=== PATIENT | female | born 1955 | race Caucasian/White ===

== ENCOUNTER 2017-07-03 18:33 | Observation (INO) | payer MEDICARE, OTHER ==
[~2017-07-03] VITALS: Ht 157.5 cm; Wt 68.6 kg
--- NOTE | 2017-07-03 18:54 | PHYS DOC ---
Past History Past Medical History: Anemia, Anxiety, Dementia, GERD, Hypothyroid, Other Past Surgical History: Other Alcohol Use: None Drug Use: None Adult General Chief Complaint Chief Complaint: PSYCH EVALUATION HPI HPI Patient is a 61-year-old female was riding his for admission to [facility]. Patient has no acute complaints. Patient arrives on nasal cannula but she is chronically on that secondary to COPD. Patient is currently in the ED for a medical screening prior to going to the unit. Patient denies any pain, recent illness or being off her baseline Review of Systems Review of Systems Constitutional: Denies fever or chills [] Eyes: Denies change in visual acuity, redness, or eye pain [] HENT: Denies nasal congestion or sore throat [] Respiratory: Denies cough or shortness of breath [] Cardiovascular: No chest pain GI: Denies abdominal pain, nausea, vomiting, bloody stools or diarrhea [] : Denies dysuria or hematuria [] Musculoskeletal: Denies back pain or joint pain [] Integument: Denies rash or skin lesions [] Neurologic: Denies headache, focal weakness or sensory changes [] All other systems were reviewed and found to be within normal limits, except as documented in this note. Current Medications Current Medications Current Medications Medications (Trade) Dose Ordered Sig/Steph Start Time Stop Time Status Last Admin Dose Admin Sodium Chloride 1,000 ml @ 1,000 mls/hr 1X ONCE 07/03/17 18:45 07/03/17 19:44 UNV Allergies Allergies Allergies Coded Allergies Type Severity Reaction Last Updated Verified azithromycin Allergy Unknown 07/03/17 Yes butorphanol Allergy Unknown 07/03/17 Yes dexlansoprazole Allergy Unknown 07/03/17 Yes meperidine Allergy Unknown 07/03/17 Yes terfenadine Allergy Unknown 07/03/17 Yes Physical Exam Physical Exam Constitutional: Well developed, well nourished, no acute distress, non-toxic appearance. [] HENT: Normocephalic, atraumatic, bilateral external ears normal, oropharynx dry , no oral exudates, nose normal. [] Eyes: EOMI, conjunctiva normal, no discharge. [] Neck: Normal range of motion, no tenderness, supple, no stridor. No LAD, no meningeal signs Cardiovascular:Heart rate regular rhythm, no murmur, equal pulses, normal perfusion Lungs & Thorax: Bilateral breath sounds clear to auscultation, no tachypnea, no wheezing, no rhonchi, no rales Abdomen: Bowel sounds normal, soft, no tenderness, no masses, no pulsatile masses. [] Skin: Warm, dry, no erythema, no rash. [] Back: No tenderness, no CVA tenderness. [] Extremities: No tenderness, no DVT, nonpitting edema bilateral lower extremities , ROM intact, . [] Neurologic: Alert and oriented X 3, normal motor function, normal speech, no focal deficits noted. [] Psychologic: Affect normal, judgement normal, mood normal. No SI, no HI Current Patient Data Vital Signs Vital Signs Date Time Temp Pulse Resp B/P (MAP) Pulse Ox O2 Delivery O2 Flow Rate FiO2 07/03/17 18:39 98.0 73 18 90 Nasal Cannula 2.0 EKG EKG 1854 73, SR, no stemi[] Radiology/Procedures Radiology/Procedures CXR: possible LLL infiltrate[] Course & Med Decision Making Course & Med Decision Making Pertinent Labs and Imaging studies reviewed. (See chart for details) 2012 pt still pain free. spoke to Dr Tompkins: pt will be admitted to rule out NSTEMI. Likely the mild elevation of troponin is a type II but will trend them. Pt also will be treated for LLL appearing infiltrate. [] Dragon Disclaimer Dragon Disclaimer This electronic medical record was generated, in whole or in part, using a voice recognition dictation system. Departure Departure: Impression: Primary Impression: COPD (chronic obstructive pulmonary disease) Additional Impressions: Elevated troponin Pneumonia Disposition: ADMITTED INPATIENT Admitting Physician: Alex Tompkins Condition: STABLE Problem Qualifiers Star HOPKINS MD Jul 03, 2017 18:54
[2017-07-03] MEDS ORDERED: IV NORMAL SALINE 1,000ML 1,000 ML IV ONE (19:00)
[2017-07-03 19:37] LABS: BASO # 0.1 x10^3/uL (0.0-0.2); BASO % 1 % (0-3); EOS # 0.4 x10^3/uL (0.0-0.7); EOS % 6 % (0-3); HEMOGLOBIN 15.5 g/dL (12.0-15.5); LYMPH # 2.3 x10^3/uL (1.0-4.8); LYMPH % 31 % (24-48); MEAN CORPUSCULAR HEMOGLOBIN 29 pg (25-35); MEAN CORPUSCULAR HGB CONC 33 g/dL (31-37); MEAN CORPUSCULAR VOLUME 88 fL (79-100); MONO # 0.7 x10^3/uL (0.0-1.1); MONO % 10 % (0-9); NEUT % 53 % (31-73); PLATELET COUNT 305 x10^3/uL (140-400); RED BLOOD COUNT 5.37 x10^6/uL (3.50-5.40); RED CELL DISTRIBUTION WIDTH 16.5 % (11.5-14.5); WHITE BLOOD COUNT 7.5 x10^3/uL (4.0-11.0)
[2017-07-03 19:54] LABS: BILIRUBIN,URINE NEG (NEG); CLARITY,URINE HAZY; COLOR,URINE STRAW; GLUCOSE,URINE NEG (NEG)
[2017-07-03 19:55] LABS: AMORPHOUS SEDIMENT,UR PRESENT /HPF; BACTERIA,URINE 0 /HPF (0-FEW); HYALINE CASTS, URINE MOD /HPF; NITRITE,URINE NEG (NEG); RBC,URINE OCC /HPF (0-2); SQUAMOUS EPITHELIAL CELL,UR FEW /LPF; UROBILINOGEN,URINE 0.2 mg/dL (0.2 mg/dL); WBC,URINE OCC /HPF (0-4)
[2017-07-03 19:56] LABS: ALBUMIN 3.5 g/dL (3.4-5.0); ALBUMIN/GLOBULIN RATIO 0.6 (1.0-1.7); CALCIUM 9.3 mg/dL (8.5-10.1); CREATININE 1.1 mg/dL (0.6-1.0); GFR 50.7; TOTAL BILIRUBIN 0.9 mg/dL (0.2-1.0)
[2017-07-03 20:00] LABS: POTASSIUM 4.2 mmol/L (3.5-5.1)
[2017-07-03 20:11] VITALS: BP 120/80
[2017-07-03] MEDS ORDERED: levoFLOXacin 500 MG TABLET PO ONE (20:15)
[2017-07-03] MEDS ORDERED: ASPIRIN 81 MG TAB.CHEW PO ONE (20:15)
[2017-07-03] MEDS ORDERED: levoFLOXacin 500 MG TABLET ONE (20:16)
[2017-07-03] MEDS ORDERED: ONDANSETRON PF 4 MG/2 ML VIAL. IV PRN (20:30)
[2017-07-03] MEDS ORDERED: ACETAMINOPHEN 325 MG TABLET PO PRN (20:30)
[2017-07-03] MEDS ORDERED: ALBU2.5V14 NEB (22:24)
[2017-07-03] MEDS ORDERED: FERR-26 PO (22:24)
[2017-07-03] MEDS ORDERED: CLOP75TA PO (22:25)
[2017-07-03] MEDS ORDERED: MAGN400O7 PO (22:26)
[2017-07-03] MEDS ORDERED: CALC-30 PO (22:27)
[2017-07-03] MEDS ORDERED: ACET325T9 PO (22:29)
[2017-07-03] MEDS ORDERED: FLUT1DIS IH (22:31)
[2017-07-03] MEDS ORDERED: MEMA7CAP PO (22:33)
[2017-07-03] MEDS ORDERED: IPRA4AER INH (22:34)
[2017-07-03] MEDS ORDERED: SODI14.1 TP (22:40)
[2017-07-03] MEDS ORDERED: RANI150C PO (22:41)
[2017-07-03] MEDS ORDERED: CLON0.5T PO (22:41)
[2017-07-03] MEDS ORDERED: MELA3TAB2 PO (22:44)
[2017-07-03] MEDS ORDERED: LOPE2CAP88 PO (22:45)
[2017-07-03] MEDS ORDERED: POTA10CA PO (22:46)
[2017-07-03] MEDS ORDERED: MIRT15TA PO (22:46)
[2017-07-03] MEDS ORDERED: FURO40TA4 PO (22:46)
[2017-07-03] MEDS ORDERED: BUSP10TA PO (22:47)
[2017-07-03] MEDS ORDERED: CLON0.5T3 PO (22:48)
[2017-07-03] MEDS ORDERED: METO25TA4 PO (22:48)
[2017-07-03] MEDS ORDERED: LEVO137T3 PO (22:49)
[2017-07-03] MEDS ORDERED: VENL150C6 PO (22:50)
[2017-07-03 23:23] VITALS: BP 117/72
--- NOTE | 2017-07-03 23:37 | EKG ---
[address] [address] Test Date: 2017-07-03 Test Time: 18:52:30 Pat Name: RAFY CASTILLO Department: Room: 111 A Gender: F Machine Binding Folder: NIKOLAY : [id number] Requested By: Star HOPKINS Order Number: [id number] Reading MD: Chris Cooper MD Measurements Intervals [place] Rate: 73 P: 33 LA: 208 QRS: 111 QRSD: 92 T: 31 QT: 482 QTc: 536 Interpretive Statements SINUS RHYTHM LEFT ATRIAL ABNORMALITY ABNORMAL RIGHT AXIS DEVIATION QRS(T) CONTOUR ABNORMALITY CONSISTENT WITH ANTEROSEPTAL INFARCT PROBABLY OLD Electronically Signed On 07-09-2017 11:14:45 BROADCAST OPERATIONS MANAGER by Chris Cooper MD
--- NOTE | 2017-07-03 23:52 | NUR ---
The patient, RAFY CASTILLO, 61 y/o, F admitted by ADRIEN BOWERS MD, was given written information regarding hospital policies, unit procedures and contact persons. Patient admitted with a high troponin level and possible pneumonia. Originally patient was supposed to go up to the [facility] for SI, patient denies being suicidal. Patient states that she was "pissed" at her ex so she put a plastic bag on her head but states that it wasn't tight and she has no plans on harming her self or anyone else. Patient does have dementia with forgetfulness. Patient states she wants to be a full code. Patient is alert to name and place but thinks it is 1989 and Harry Thakur is still the president. Patient skin is intact however her coccyx area is very red. Photo taken, and applied barrier cream. Patient states that she is wheel chair bound. Bed alarm set for safety. Belongings documented and left at bedside. Call light within reach. Will continue to monitor. .
--- NOTE | 2017-07-04 01:54 | NUR ---
Called Dr. Tompkins regarding patient troponin going up, new orders noted. Patient resting at this time.
[2017-07-04 05:24] VITALS: BP 125/85
[2017-07-04] MEDS ORDERED: levoFLOXacin 500 MG TABLET PO SCH (06:00)
--- NOTE | 2017-07-04 06:16 | NUR ---
CONSULT CALLED TO DR. PERRIN AT 0615.
[2017-07-04 07:35] LABS: BASO # 0.1 x10^3/uL (0.0-0.2); BASO % 1 % (0-3); EOS # 0.5 x10^3/uL (0.0-0.7); EOS % 7 % (0-3); HEMATOCRIT 45.6 % (36.0-47.0); HEMOGLOBIN 14.9 g/dL (12.0-15.5); LYMPH # 1.7 x10^3/uL (1.0-4.8); LYMPH % 27 % (24-48); MEAN CORPUSCULAR HEMOGLOBIN 29 pg (25-35); MEAN CORPUSCULAR HGB CONC 33 g/dL (31-37); MEAN CORPUSCULAR VOLUME 88 fL (79-100); MONO # 0.7 x10^3/uL (0.0-1.1); MONO % 11 % (0-9); NEUT # 3.5 x10^3uL (1.8-7.7); NEUT % 55 % (31-73); PLATELET COUNT 274 x10^3/uL (140-400); RED BLOOD COUNT 5.18 x10^6/uL (3.50-5.40); RED CELL DISTRIBUTION WIDTH 16.9 % (11.5-14.5); WHITE BLOOD COUNT 6.4 x10^3/uL (4.0-11.0)
[2017-07-04 07:46] LABS: ALBUMIN 2.9 g/dL (3.4-5.0); ALBUMIN/GLOBULIN RATIO 0.6 (1.0-1.7); CALCIUM 8.8 mg/dL (8.5-10.1); CREATININE 1.2 mg/dL (0.6-1.0); GFR 45.8; POTASSIUM 4.1 mmol/L (3.5-5.1); TOTAL BILIRUBIN 0.9 mg/dL (0.2-1.0); TOTAL PROTEIN 7.6 g/dL (6.4-8.2)
--- NOTE | 2017-07-04 08:27 | RAD ---
History: COPD AP view the chest was obtained at 1847 hours. Comparison: none The cardiomediastinal silhouette is normal. The pulmonary vasculature is normal. There is patchy opacity in the lung bases. Impression: Basilar infiltrates suggesting atypical pneumonia. Clinical correlation suggested. This interpretation agrees with the ER physician's preliminary interpretation.
[2017-07-04 10:41] VITALS: BP 96/59
--- NOTE | 2017-07-04 10:54 | NUR ---
Pt is alert and oriented to person and place. Pt states she is wheelchair bound and does not remember what caused her to be unable to walk. Pt denies any want to hurt herself or anyone else. Pt does have O2 tubing in room, no call light, is using orozco. LE edema noted. Will continue to monitor.
[2017-07-04 14:55] VITALS: BP 117/73
--- NOTE | 2017-07-04 14:57 | PDOC2 ---
CONSULT Date of Admission DATE: 07/04/17 TIME: 14:57 Reason for Consult: elevated troponin level Referring Physician: Dr. Tompkins Chief Complaint Attempted suicide Source: Chart review, Patient Problem List Problems Medical Problems: (1) COPD (chronic obstructive pulmonary disease) Status: Acute (2) Elevated troponin Status: Acute (3) Pneumonia Status: Acute History of Present Illness 61-year-old female was found to have slightly elevated troponin level when she was being evaluated in ED for attempted suicide prior to admission for [facility]. Patient denied any chest pain as such pressure also denied any orthopnea/PND, palpitations or syncope. Past Medical History Hypothyroidism Dementia Anxiety Gastroesophageal reflux disease Anemia Past Surgical History: No pertinent history Family History No history of premature coronary artery disease Social History Patient quit smoking and denied any alcohol or drug abuse Current Medications Current Medications Sodium Chloride 1,000 ml @ 1,000 mls/hr 1X ONCE IV Last administered on at 19:00; Start 07/03/17 at 19:00; Stop 07/03/17 at 19:59; Status DC Aspirin (Children'S Aspirin) 324 mg 1X ONCE PO Last administered on 07/03/17at 20:19; Start 07/03/17 at 20:15; Stop 07/03/17 at 20:16; Status DC Levofloxacin (Levaquin) 500 mg 1X ONCE PO Last administered on 07/03/17at 20:19 ; Start 07/03/17 at 20:15; Stop 07/03/17 at 20:16; Status DC Levofloxacin (Levaquin) 500 mg STK-MED ONCE .ROUTE ; Start 07/03/17 at 20:16; Stop 07/03/17 at 20:17; Status DC Ondansetron HCl (Zofran) 4 mg PRN Q4HRS PRN IV NAUSEA/VOMITING; Start 07/03/17 at 20:30; Stop 07/04/17 at 20:29 Acetaminophen (Tylenol) 650 mg PRN Q4HRS PRN PO FEVER; Start 07/03/17 at 20:30; Stop 07/04/17 at 20:29 Levofloxacin (Levaquin) 500 mg DAILY06 PO Last administered on 07/04/17at 05:14; Start 07/04/17 at 06:00 Lactobacillus Rhamnosus (Culturelle) 1 cap BID PO ; Start 07/04/17 at 21:00 Active Scripts Active Reported Venlafaxine Hcl Er (Venlafaxine Hcl) 150 Mg Cap.er.24h 1 Cap PO DAILY Levothyroxine Sodium 137 Mcg Tablet 1 Tab PO [id number] Metoprolol Tartrate 25 Mg Tablet 1 Tab PO BID Clonazepam 0.5 Mg Tablet 1 Tab PO TID Buspirone Hcl 10 Mg Tablet 1 Tab PO TID Furosemide 40 Mg Tablet 1 Tab PO DAILY Potassium Chloride 10 Meq Capsule.er 1 Cap PO DAILY Remeron (Mirtazapine) 15 Mg Tablet 1 Tab PO QHS Imodium A-D (Loperamide HCl) 2 Mg Capsule 2 Mg PO QID PRN Melatonin 3 Mg Tablet 6 Mg PO HS Ranitidine Hcl 150 Mg Capsule 1 Cap PO BID Klonopin (Clonazepam) 0.5 Mg Tablet 1 Tab PO BID PRN [place] Saline Nasal Gel (Sodium Chloride/Aloe Vera) 14.1 Gm Gel..gram. 1 Brenda TP QID PRN Combivent Respimat Inhal (Ipratropium/Albuterol Sulfate) 4 Gm Aer.w.adap 1 Puff INH TID Namenda Xr (Memantine Hcl) 7 Mg Cap.spr.24 7 Mg PO DAILY Advair 100-50 Diskus (Fluticasone/Salmeterol) 1 Each Disk.w.dev 1 Puff IH BID Tylenol (Acetaminophen) 325 Mg Tablet 650 Mg PO TID Calcium 500 + Vit D 400 Tablet (Calcium Carbonate/Vitamin D3) 1 Each Tablet 1 Each PO DAILY Milk Of Magnesia (Magnesium Hydroxide) 400 Mg/5 Ml Oral.susp 400 Mg PO DAILY PRN Clopidogrel (Clopidogrel Bisulfate) 75 Mg Tablet 1 Tab PO DAILYBFRSUP Albuterol Sulfate Conc Neb Soln (Albuterol Sulfate) 2.5 Mg/0.5 Ml Vial.neb 1 Vial NEB Q4HRS PRN Ferrous Sulfate 325 Mg Tablet 1 Tab PO DAILY Allergies: Coded Allergies: azithromycin (Verified Allergy, Unknown, 07/03/17) butorphanol (Verified Allergy, Unknown, 07/03/17) dexlansoprazole (Verified Allergy, Unknown, 07/03/17) meperidine (Verified Allergy, Unknown, 07/03/17) terfenadine (Verified Allergy, Unknown, 07/03/17) PSYCHOLOGICAL ROS: No: Hallucinations Eyes: No: Loss of vision HEENT: No: Epistaxis ENDOCRINE: No: Palpitations Respiratory: No: Hemoptysis, Orthopnea Cardiovascular: No: Chest Pain, Edema Genitourinary: No: Dysuria, Genital Ulcers Neurological: No: Seizures Skin: No: Rash General: Alert, No acute distress HEENT: Atraumatic, PERRLA Lungs: Other (bilateral scattered crepitations) Heart: Regular rate Abdomen: Soft Extremities: No edema VITALS Vital Signs Date Time Temp Pulse Resp B/P (MAP) Pulse Ox O2 Delivery O2 Flow Rate FiO2 07/04/17 10:41 97.6 83 24 96/59 (71) 89 07/04/17 08:00 Nasal Cannula 4.0 Labs Laboratory Tests Test 07/03/17 19:03 07/03/17 21:25 07/04/17 01:10 07/04/17 07:10 White Blood Count 7.5 x10^3/uL (4.0-11.0) 6.4 x10^3/uL (4.0-11.0) Red Blood Count 5.37 x10^6/uL (3.50-5.40) 5.18 x10^6/uL (3.50-5.40) Hemoglobin 15.5 g/dL (12.0-15.5) 14.9 g/dL (12.0-15.5) Hematocrit 47.0 % (36.0-47.0) 45.6 % (36.0-47.0) Mean Corpuscular Volume 88 fL (79-100) 88 fL (79-100) Mean Corpuscular Hemoglobin 29 pg (25-35) 29 pg (25-35) Mean Corpuscular Hemoglobin Concent 33 g/dL (31-37) 33 g/dL (31-37) Red Cell Distribution Width 16.5 % (11.5-14.5) 16.9 % (11.5-14.5) Platelet Count 305 x10^3/uL (140-400) 274 x10^3/uL (140-400) Neutrophils (%) (Auto) 53 % (31-73) 55 % (31-73) Lymphocytes (%) (Auto) 31 % (24-48) 27 % (24-48) Monocytes (%) (Auto) 10 % (0-9) 11 % (0-9) Eosinophils (%) (Auto) 6 % (0-3) 7 % (0-3) Basophils (%) (Auto) 1 % (0-3) 1 % (0-3) Neutrophils # (Auto) 4.0 x10^3uL (1.8-7.7) 3.5 x10^3uL (1.8-7.7) Lymphocytes # (Auto) 2.3 x10^3/uL (1.0-4.8) 1.7 x10^3/uL (1.0-4.8) Monocytes # (Auto) 0.7 x10^3/uL (0.0-1.1) 0.7 x10^3/uL (0.0-1.1) Eosinophils # (Auto) 0.4 x10^3/uL (0.0-0.7) 0.5 x10^3/uL (0.0-0.7) Basophils # (Auto) 0.1 x10^3/uL (0.0-0.2) 0.1 x10^3/uL (0.0-0.2) Urine Collection Type U cath Urine Color Straw Urine Clarity Hazy Urine pH 5.0 Urine Specific [place] 1.010 Urine Protein Neg (NEG-TRACE) Urine Glucose (UA) Neg mg/dL (NEG) Urine Ketones (Stick) Neg mg/dL (NEG) Urine Blood Neg (NEG) Urine Nitrite Neg (NEG) Urine Bilirubin Neg (NEG) Urine Urobilinogen Dipstick 0.2 mg/dL (0.2 mg/dL) Urine Leukocyte Esterase Neg (NEG) Urine RBC Occ /HPF (0-2) Urine WBC Occ /HPF (0-4) Urine Squamous Epithelial Cells Few /LPF Urine Amorphous Sediment Present /HPF Urine Bacteria 0 /HPF (0-FEW) Urine Hyaline Casts Mod /HPF Urine Mucus Mod /LPF Sodium Level 142 mmol/L (136-145) 143 mmol/L (136-145) Potassium Level 4.2 mmol/L (3.5-5.1) 4.1 mmol/L (3.5-5.1) Chloride Level 100 mmol/L (98-107) 103 mmol/L (98-107) Carbon Dioxide Level 36 mmol/L (21-32) 35 mmol/L (21-32) Anion Gap 6 (6-14) 5 (6-14) Blood Urea Nitrogen 18 mg/dL (7-20) 16 mg/dL (7-20) Creatinine 1.1 mg/dL (0.6-1.0) 1.2 mg/dL (0.6-1.0) Estimated GFR (Cockcroft-Gault) 50.7 45.8 BUN/Creatinine Ratio 16 (6-20) 13 (6-20) Glucose Level 104 mg/dL (70-99) 75 mg/dL (70-99) Calcium Level 9.3 mg/dL (8.5-10.1) 8.8 mg/dL (8.5-10.1) Total Bilirubin 0.9 mg/dL (0.2-1.0) 0.9 mg/dL (0.2-1.0) Aspartate Amino Transf (AST/SGOT) 46 U/L (15-37) 34 U/L (15-37) Alanine Aminotransferase (ALT/SGPT) 23 U/L (14-59) 18 U/L (14-59) Alkaline Phosphatase 148 U/L (46-116) 118 U/L (46-116) Troponin I Quantitative 0.056 ng/mL (0-0.055) 0.070 ng/mL (0-0.055) 0.065 ng/mL (0-0.055) OT-Ygm-T-Type Natriuretic Peptide 6075 pg/mL (0-124) Total Protein 9.0 g/dL (6.4-8.2) 7.6 g/dL (6.4-8.2) Albumin 3.5 g/dL (3.4-5.0) 2.9 g/dL (3.4-5.0) Albumin/Globulin Ratio 0.6 (1.0-1.7) 0.6 (1.0-1.7) Glucose (Fingerstick) 88 mg/dL (70-99) Assessment/Plan 1. Slightly elevated troponin level: Most probably demand ischemia. Doubt ACS. Check 2-D echo to assess LV function and rule out wall motion abnormalities. Further ischemic evaluation in the form of stress test could be considered as an outpatient. 2. Atypical pneumonia: Continue antibiotics per IM 3. COPD: Clinically stable 4. Hypothyroidism: Continue levothyroxine 5. Hypertension: Well-controlled 6. Attempted suicide: Treated per psychiatric team Thank you for your consultation Problems: NELSON BARKER MD Jul 04, 2017 14:57
[2017-07-04] MEDS ORDERED: clonazePAM 0.5 MG TABLET PO PRN (18:45)
[2017-07-04] MEDS ORDERED: MAGNESIUM HYDROXIDE 2,400 MG/30 ML ORAL.SUSP. PO PRN (18:45)
[2017-07-04] MEDS ORDERED: NON FORMULARY ITEM (Albuterol Sulfate (Albuterol Sulfate Conc Neb Soln) 1 VIAL) NEB PRN (18:45)
[2017-07-04] MEDS ORDERED: LOPERAMIDE 2 MG CAPSULE PO PRN (18:45)
[2017-07-04] MEDS ORDERED: SODIUM CHL/ALOE VERA NASAL GEL 14.1GM TUBE. TP PRN (18:45)
--- NOTE | 2017-07-04 19:21 | PDOC ---
Exam Note: Saeid Note: Please also refer to the separate dictated note~for this date of service dictated separately.~Patient seen individually. Discussed the patient with Nursing staff reviewed the chart.~Reviewed interim history and current functioning. Reviewed vital signs,~Labs/ Radiology~and current medications noted below. Continue current treatment with the changes noted in the dictated addendum note Assessment: Vital Signs: Vital Signs Date Time Temp Pulse Resp B/P (MAP) Pulse Ox O2 Delivery O2 Flow Rate FiO2 07/04/17 14:55 98.2 99 24 117/73 (88) 90 07/04/17 08:00 Nasal Cannula 4.0 I&O Intake and Output 07/04/17 07:00 Intake Total 400 ml Balance 400 ml Intake Oral 400 ml Labs: Laboratory Tests Test 07/03/17 21:25 07/04/17 01:10 07/04/17 04:20 07/04/17 07:10 Glucose (Fingerstick) 88 mg/dL (70-99) Troponin I Quantitative 0.070 ng/mL (0-0.055) H 0.065 ng/mL (0-0.055) H Nasal Screen MRSA (PCR) Positive (Negative) H White Blood Count 6.4 x10^3/uL (4.0-11.0) Red Blood Count 5.18 x10^6/uL (3.50-5.40) Hemoglobin 14.9 g/dL (12.0-15.5) Hematocrit 45.6 % (36.0-47.0) Mean Corpuscular Volume 88 fL (79-100) Mean Corpuscular Hemoglobin 29 pg (25-35) Mean Corpuscular Hemoglobin Concent 33 g/dL (31-37) Red Cell Distribution Width 16.9 % (11.5-14.5) H Platelet Count 274 x10^3/uL (140-400) Neutrophils (%) (Auto) 55 % (31-73) Lymphocytes (%) (Auto) 27 % (24-48) Monocytes (%) (Auto) 11 % (0-9) H Eosinophils (%) (Auto) 7 % (0-3) H Basophils (%) (Auto) 1 % (0-3) Neutrophils # (Auto) 3.5 x10^3uL (1.8-7.7) Lymphocytes # (Auto) 1.7 x10^3/uL (1.0-4.8) Monocytes # (Auto) 0.7 x10^3/uL (0.0-1.1) Eosinophils # (Auto) 0.5 x10^3/uL (0.0-0.7) Basophils # (Auto) 0.1 x10^3/uL (0.0-0.2) Sodium Level 143 mmol/L (136-145) Potassium Level 4.1 mmol/L (3.5-5.1) Chloride Level 103 mmol/L (98-107) Carbon Dioxide Level 35 mmol/L (21-32) H Anion Gap 5 (6-14) L Blood Urea Nitrogen 16 mg/dL (7-20) Creatinine 1.2 mg/dL (0.6-1.0) H Estimated GFR (Cockcroft-Gault) 45.8 BUN/Creatinine Ratio 13 (6-20) Glucose Level 75 mg/dL (70-99) Calcium Level 8.8 mg/dL (8.5-10.1) Total Bilirubin 0.9 mg/dL (0.2-1.0) Aspartate Amino Transferase (AST) 34 U/L (15-37) Alanine Aminotransferase (ALT) 18 U/L (14-59) Alkaline Phosphatase 118 U/L (46-116) H Total Protein 7.6 g/dL (6.4-8.2) Albumin 2.9 g/dL (3.4-5.0) L Albumin/Globulin Ratio 0.6 (1.0-1.7) L Current Medications: Meds: Current Medications Sodium Chloride 1,000 ml @ 1,000 mls/hr 1X ONCE IV Last administered on at 19:00; Start 07/03/17 at 19:00; Stop 07/03/17 at 19:59; Status DC Aspirin (Children'S Aspirin) 324 mg 1X ONCE PO Last administered on 07/03/17at 20:19; Start 07/03/17 at 20:15; Stop 07/03/17 at 20:16; Status DC Levofloxacin (Levaquin) 500 mg 1X ONCE PO Last administered on 07/03/17at 20:19 ; Start 07/03/17 at 20:15; Stop 07/03/17 at 20:16; Status DC Levofloxacin (Levaquin) 500 mg STK-MED ONCE .ROUTE ; Start 07/03/17 at 20:16; Stop 07/03/17 at 20:17; Status DC Ondansetron HCl (Zofran) 4 mg PRN Q4HRS PRN IV NAUSEA/VOMITING; Start 07/03/17 at 20:30; Stop 07/04/17 at 20:29 Acetaminophen (Tylenol) 650 mg PRN Q4HRS PRN PO FEVER; Start 07/03/17 at 20:30; Stop 07/04/17 at 20:29 Levofloxacin (Levaquin) 500 mg DAILY06 PO Last administered on 07/04/17at 05:14; Start 07/04/17 at 06:00 Lactobacillus Rhamnosus (Culturelle) 1 cap BID PO ; Start 07/04/17 at 21:00 Acetaminophen (Tylenol) 650 mg TID PO ; Start 07/04/17 at 21:00 Buspirone HCl (Buspar) 10 mg TID PO ; Start 07/04/17 at 21:00 Clonazepam (KlonoPIN) 0.5 mg TID PO ; Start 07/04/17 at 21:00 Clonazepam (KlonoPIN) 0.5 mg PRN BID PRN PO ANXIETY / AGITATION; Start 07/04/17 at 18:45 Clopidogrel Bisulfate (Plavix) 75 mg DAILYBFRSUP PO ; Start 07/05/17 at 17:00 Ferrous Sulfate (Feosol) 325 mg DAILY PO ; Start 07/05/17 at 09:00 Furosemide (Lasix) 40 mg DAILY PO ; Start 07/05/17 at 09:00 Levothyroxine Sodium (Synthroid) 137 mcg DAILY07 PO ; Start 07/05/17 at 09:00 Loperamide HCl (Imodium) 2 mg PRN QID PRN PO DIARRHEA; Start 07/04/17 at 18:45 Magnesium Hydroxide (Milk Of Magnesia) 400 mg PRN DAILY PRN PO CONSTIPATION; Start 07/04/17 at 18:45 Metoprolol Tartrate (Lopressor) 25 mg BID PO ; Start 07/04/17 at 21:00 Mirtazapine (Remeron) 15 mg QHS PO ; Start 07/04/17 at 21:00 Sodium Chloride ([place] Saline Nasal) 1 brenda PRN QID PRN TP NASAL CONGESTION; Start 07/04/17 at 18:45 Non-Formulary Medication 1 vial Q4HRS PRN NEB SHORTNESS OF BREATH; Start at 18:45; Status UNV Non-Formulary Medication 1 each DAILY PO ; Start 07/05/17 at 09:00; Status UNV Non-Formulary Medication 1 puff BID IH ; Start 07/04/17 at 21:00; Status UNV Non-Formulary Medication 1 puff TID INH ; Start 07/04/17 at 21:00; Status UNV Non-Formulary Medication 6 mg HS PO ; Start 07/04/17 at 21:00; Status UNV Non-Formulary Medication 7 mg DAILY PO ; Start 07/05/17 at 09:00; Status UNV Non-Formulary Medication 1 cap DAILY PO ; Start 07/05/17 at 09:00; Status UNV Non-Formulary Medication 1 cap BID PO ; Start 07/04/17 at 21:00; Status UNV Non-Formulary Medication 1 cap DAILY PO ; Start 07/05/17 at 09:00; Status UNV Active Scripts Active Reported Venlafaxine Hcl Er (Venlafaxine Hcl) 150 Mg Cap.er.24h 1 Cap PO DAILY Levothyroxine Sodium 137 Mcg Tablet 1 Tab PO [id number] Metoprolol Tartrate 25 Mg Tablet 1 Tab PO BID Clonazepam 0.5 Mg Tablet 1 Tab PO TID Buspirone Hcl 10 Mg Tablet 1 Tab PO TID Furosemide 40 Mg Tablet 1 Tab PO DAILY Potassium Chloride 10 Meq Capsule.er 1 Cap PO DAILY Remeron (Mirtazapine) 15 Mg Tablet 1 Tab PO QHS Imodium A-D (Loperamide HCl) 2 Mg Capsule 2 Mg PO QID PRN Melatonin 3 Mg Tablet 6 Mg PO HS Ranitidine Hcl 150 Mg Capsule 1 Cap PO BID Klonopin (Clonazepam) 0.5 Mg Tablet 1 Tab PO BID PRN [place] Saline Nasal Gel (Sodium Chloride/Aloe Vera) 14.1 Gm Gel..gram. 1 Brenda TP QID PRN Combivent Respimat Inhal (Ipratropium/Albuterol Sulfate) 4 Gm Aer.w.adap 1 Puff INH TID Namenda Xr (Memantine Hcl) 7 Mg Cap.spr.24 7 Mg PO DAILY Advair 100-50 Diskus (Fluticasone/Salmeterol) 1 Each Disk.w.dev 1 Puff IH BID Tylenol (Acetaminophen) 325 Mg Tablet 650 Mg PO TID Calcium 500 + Vit D 400 Tablet (Calcium Carbonate/Vitamin D3) 1 Each Tablet 1 Each PO DAILY Milk Of Magnesia (Magnesium Hydroxide) 400 Mg/5 Ml Oral.susp 400 Mg PO DAILY PRN Clopidogrel (Clopidogrel Bisulfate) 75 Mg Tablet 1 Tab PO DAILYBFRSUP Albuterol Sulfate Conc Neb Soln (Albuterol Sulfate) 2.5 Mg/0.5 Ml Vial.neb 1 Vial NEB Q4HRS PRN Ferrous Sulfate 325 Mg Tablet 1 Tab PO DAILY I have reviewed the current psychotropics carefully including drug interactions. Risk benefit ratio favors no change other than as noted in my dictated progress note. Diagnosis: Problems: (1) Anxiety disorder (2) Major depressive disorder, recurrent episode CARY ALEX MD Jul 04, 2017 19:21
[2017-07-04 19:37] VITALS: BP 120/74
[2017-07-04] MEDS ORDERED: ACET500T68 PO (19:42)
[2017-07-04] MEDS ORDERED: LACT1CAP19 PO (19:45)
[2017-07-04] MEDS ORDERED: LEVO500T8 PO (19:48)
[2017-07-04 20:01] VITALS: BP 120/74
[2017-07-04] MEDS ORDERED: ALBUTEROL SULFATE 2.5 MG/3 ML NEBU. NEB PRN (20:45)
[2017-07-04] MEDS ORDERED: MELATONIN 3 MG TABLET PO SCH (21:00)
[2017-07-04] MEDS ORDERED: busPIRone 10 MG TABLET. PO SCH (21:00)
[2017-07-04] MEDS ORDERED: NON FORMULARY ITEM (Fluticasone/Salmeterol (Advair 100-50 Diskus) 1 PUFF) IH SCH (21:00)
[2017-07-04] MEDS ORDERED: LACTOBACILLUS RHAMNOSUS GG 1 CAPSULE. PO SCH (21:00)
[2017-07-04] MEDS ORDERED: clonazePAM 0.5 MG TABLET PO SCH (21:00)
[2017-07-04] MEDS ORDERED: FAMOTIDINE 20 MG TABLET PO SCH (21:00)
[2017-07-04] MEDS ORDERED: VENLAFAXINE 50 MG TABLET. PO SCH (21:00)
[2017-07-04] MEDS ORDERED: METOPROLOL TART IMMED RELEASE 25 MG TABLET PO SCH (21:00)
[2017-07-04] MEDS ORDERED: IPRATRPIUM/ALBUTEROL 0.5/2.5MG 3 ML NEBU. NEB SCH (21:00)
[2017-07-04] MEDS ORDERED: MIRTAZAPINE 15 MG TABLET PO SCH (21:00)
[2017-07-04] MEDS ORDERED: ACETAMINOPHEN 325 MG TABLET PO SCH (21:00)
--- NOTE | 2017-07-04 21:57 | NUR ---
Gave verbal report to nurse [place] on [facility], patient brought up to [facility] via wheelchair, belongings sent with patient. Daughter notified of transfer. Dr. Jeffery Accepting.
--- NOTE | 2017-07-05 07:48 | SSS ---
ADMIT DATE: HISTORY OF PRESENT ILLNESS: The patient is a 61-year-old female patient, who was evaluated in the Emergency Room to be admitted for [facility]. She apparently attempted suicide and when evaluating her to the Emergency Room, her lab work showed that she has slightly elevated troponin and was admitted to [address] [place] [address] to do 2 more sets of cardiac enzyme and to consult the cardiology team. The patient herself denied any chest pain, shortness of breath, orthopnea or paroxysmal nocturnal dyspnea. PAST MEDICAL HISTORY: Significant for hypothyroidism, gastroesophageal reflux disease, anemia, dementia and anxiety. PAST SURGICAL HISTORY: Unremarkable. FAMILY HISTORY: Unremarkable. SOCIAL HISTORY: She is a resident at the sn[facility] facility. ALLERGIES: SHE IS ALLERGIC TO AZITHROMYCIN, BUTORPHANOL , PANTOPRAZOLE, MEPERIDINE AND TERFENADINE. MEDICATIONS: She is currently on the following medications: She is on acetaminophen 650 mg t.i.d., albuterol sulfate 2.5 mg 0.5 mL by nebulizer every 4 hours, buspirone 10 mg 3 times a day, calcium carbonate with vitamin D one tablet once a day, clonazepam 0.5 mg p.o. b.i.d., clonazepam 0.5 mg t.i.d. scheduled, Plavix 75 mg once a day, ferrous sulfate 325 mg daily, Advair Diskus 100/50 one puff twice a day, furosemide 40 mg once a day; ipratropium bromide, albuterol inhaler for Combivent Respimat 1 puff 3 times a day; levothyroxine sodium 137 mcg daily, loperamide 2 mg every 4 hours, magnesium hydroxide for milk of magnesia 30 mL p.o. daily p.r.n. for constipation, melatonin 6 mg at bedtime, Namenda XR 7 mg daily, metoprolol 25 mg twice a day, mirtazapine 15 mg at bedtime, potassium chloride 1 capsule p.o. daily, ranitidine 150 mg p.o. b.i.d., saline nasal gel 4 times a day and venlafaxine 150 mg daily. REVIEW OF SYSTEMS: Unremarkable. PHYSICAL EXAMINATION: GENERAL: When I examined her, she looked well and was clearly in no apparent respiratory distress, pale, but no jaundice, cyanosis, or thyromegaly. No jugular venous distention. No limb edema. VITAL SIGNS: Her heart rate was 93, blood pressure was 96/59, temperature was 97.6, respiratory rate was 24, and oxygen saturation was 90%. HEAD: Showed normocephalic, atraumatic. NECK: Supple. HEART: Showed normal first and second heart sounds with no gallop, rub or murmur. CHEST: Clear to auscultation. No crepitation or rhonchi. ABDOMEN: Scaphoid, soft, nontender. NEUROLOGIC: She is demented, but without any obvious lateralizing sign. LABORATORY DATA: Her lab work showed that her white cell count was 6400, hemoglobin 14, hematocrit 45, MCV 88 and platelet count 274,000. Serum sodium was 143, potassium 4.1, chloride 103, bicarbonate 35, anion gap of 5, BUN 15, creatinine 1.2, estimated GFR was 46 mL per minute. Her glucose was 75, calcium was 8.8. Total bilirubin, AST, ALT, alkaline phosphatase were normal. Total protein 7.6, albumin was 2.9. She had 3 sets of cardiac enzymes that ruled out myocardial infarction. Her urinalysis was unremarkable; however, chest x-ray showed that she has basilar infiltrate suggesting atypical pneumonia. Clinical correlation is suggested. As she was allergic to Zithromax, she was started on levofloxacin. She was in fact evaluated by the health care consultant, who recommended that the patient can be safely discharged upstairs and to arrange for an echocardiogram and stress test as an outpatient. FINAL DISCHARGE DIAGNOSES: Slightly elevated troponin, atypical pneumonia, chronic obstructive pulmonary disease, hypothyroidism, hypertension, and suicidal attempt. ADRIEN BOWERS MD DR: ORVILLE/trung JOB#: [id number] / [id number]
[2017-07-05] MEDS ORDERED: BUDESONIDE 0.5 MG/2 ML NEBU NEB SCH (08:00)
[2017-07-05] MEDS ORDERED: CALCIUM CARB/VIT D3 500/200 TABLET PO SCH (08:00)
[2017-07-05] MEDS ORDERED: POTASSIUM CHLORIDE 10 MEQ TABLET.ER. PO SCH (08:00)
[2017-07-05] MEDS ORDERED: LEVOTHYROXINE 137 MCG TABLET PO SCH (09:00)
[2017-07-05] MEDS ORDERED: MEMANTINE 5 MG TABLET. PO SCH (09:00)
[2017-07-05] MEDS ORDERED: FUROSEMIDE 40 MG TABLET PO SCH (09:00)
[2017-07-05] MEDS ORDERED: FERROUS SULFATE 325 MG TABLET. PO SCH (09:00)
[2017-07-05] MEDS ORDERED: CLOPIDOGREL BISULFATE 75 MG TABLET PO SCH (17:00)
--- NOTE | 2017-07-05 19:08 | CONS ---
DATE OF CONSULTATION: 07/04/2017 IDENTIFYING DATA: The patient is a 61-year-old female seen in bed 111, [address] [place] [address] for a psychiatric consult requested by Dr. Tompkins to evaluate the patient for transfer to [facility]. The patient seen individually, discussed with nursing staff, reviewed the chart. The patient was initially referred to the [facility] from [place], [place] by Dr. Parker her psychiatrist on account of worsening symptoms of depression, dementia after the patient attempted to electrocute herself a week ago at the senior care, was sent to [facility] in [place], medically stabilized, returned to the senior care, and then on 07/03/2017, she put a bag over her head again in a suicide gesture and was referred to the [facility] Emergency Room. In the ER, she was found to have elevated cardiac enzymes and pneumonia, admitted to [address] [place] [address] and I have been asked to consult and perhaps reconsider for transfer to [facility]. CHIEF COMPLAINT: "I came here yesterday. I am losing much of my memory. I do not know the name of the president. The year is 2019." HISTORY OF PRESENT ILLNESS: The patient has been residing at [facility] in [place] for some time. Over the past few weeks, she has been increasingly agitated with sleep and appetite changes, worsening suicidal ideation and the suicide attempts noted above. She also appeared somewhat paranoid, much more forgetful. No clear history of bipolar disorder. PAST PSYCHIATRIC HISTORY: As above. PAST MEDICAL HISTORY: Positive for COPD, elevated troponin, pneumonia, hypothyroidism, hypertension, GERD. CURRENT PSYCHOTROPICS: Effexor ER 150 mg a day, Klonopin 0.5 mg 3 times a day, BuSpar 10 mg 3 times a day, Remeron 15 mg at bedtime, melatonin 3 mg 2 tablets at bedtime, Klonopin 0.5 mg b.i.d. p.r.n. anxiety, Namenda XR 7 mg daily. ALLERGIES: AZITHROMYCIN, BUTORPHANOL, DEXLANSOPRAZOLE, MEPERIDINE, and PERPHENAZINE. FAMILY HISTORY: Noncontributory. SOCIAL HISTORY: No alcohol, drug abuse, physical, sexual or elder abuse history is noted. She is not known to be a perpetrator. When I questioned the patient on what work she used to do. 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 She has 2 adult children of her own. MENTAL STATUS EXAMINATION: The patient was seen individually evening of 07/04/2017. She felt the year was 2019, unaware of the name of the president. Attention span short. She was accurate and telling me that she was admitted here yesterday, but thought [facility], was in [place] rather than where it, which is [place], [place]. Speech is coherent, abstraction fair, computation impaired, language function intact. Mood and affect is depressed. She denies active suicidal ideation, somewhat paranoid. Short memory is impaired, remote is better. CODE STATUS: Full code. PHYSICAL EXAMINATION: VITAL SIGNS: Temperature 98.2, pulse 99, BP 117/73. REVIEW OF SYSTEMS: No CV, , pulmonary, eye, ENT system symptoms on review. IMPRESSION: Major neurocognitive disorder, Alzheimer, vascular with depression, delusion, major depressive disorder with psychotic features; anxiety disorder, unspecified; impulse control disorder, unspecified. Rest as above. PLAN: I have carefully reviewed the patient's current psychotropics. We will continue her current medications for now, transferred to [facility] when she is medically stable. The patient is agreeable to this. Dr. Tompkins, thank you for the opportunity to participate in your patient's care. MAN Noel ALEX MD DR: ELIZABETH/trung JOB#: [id number] / [id number]
[2017-07-05] MEDS ORDERED: METH40VI IJ (21:50)
[2017-07-05] MEDS ORDERED: MONT10TA9 PO (21:50)
[2017-07-05] MEDS ORDERED: MAG355OR17 PO (21:50)
[2017-07-05] MEDS ORDERED: CLON0.5T3 PO (21:50)
[2017-07-05] MEDS ORDERED: MEMA10TA PO (21:50)
[2017-07-05] MEDS ORDERED: METH57CR7 TP (21:50)
[2017-07-05] MEDS ORDERED: PIPE3.3734 IV (21:50)
[2017-07-05] MEDS ORDERED: BUDE0.5A3 NEB (21:50)
[2017-07-05] MEDS ORDERED: BUPR-192 PO (21:50)
[2017-07-05] MEDS ORDERED: LEVO500P IV (21:50)
[2017-07-05] MEDS ORDERED: IPRA3AMP NEB (21:50)
[2017-07-05] MEDS ORDERED: CLON0.25 PO (21:50)
--- NOTE | 2017-07-08 08:47 | CARD ---
MR#: [id number] Account#: Date of Study: 07/07/2017 Ordering Physician: Tenisha: An LEAL APPROVED REPORT EXAM: Two-dimensional and M-mode echocardiogram with Doppler and color Doppler. Other Information Quality : Fair INDICATION Pneumonia 2D DIMENSIONS RVDd4.4 (2.9-3.5cm)Left Atrium(2D)3.8 (1.6-4.0cm) IVSd1.0 (0.7-1.1cm)Aortic Root(2D)2.6 (2.0-3.7cm) LVDd3.3 (3.9-5.9cm)LVOT Diameter1.9 (1.8-2.4cm) PWd1.2 (0.7-1.1cm)LVDs1.8 (2.5-4.0cm) FS (%) 43.8 %SV33.4 ml LVEF(%)76.3 (>50%) Aortic Valve AoV Peak Fabien.92.2cm/sAoV VTI15.7cm AO Peak GR.3.4mmHgLVOT Peak Fabien.55.0cm/s AO Mean GR.2mmHgAVA (VMAX)1.69cm2 Mitral Valve MV E Dvzhqvhb77.6cm/sMV DECEL QELH007nk MV A Sfcewftt15.3cm/sE/A Ratio0.8 Tricuspid Valve TR P. Wkwjvncv510od/sRAP FKHDMDGN58dsHu TR Peak Gr.95orVhHQZO93lwZs LEFT VENTRICLE The left ventricle is normal size. There is borderline concentric left ventricular hypertrophy. The l eft ventricular systolic function is normal and the ejection fraction is within normal range. The Eje ction Fraction is 65-70%. There is normal LV segmental wall motion. Tissue Doppler imaging reveals mo derate left ventricular diastolic dysfunction. RIGHT VENTRICLE The right ventricle is moderately dilated. The right ventricular systolic function is mild to moderat dilip reduced. ATRIA The left atrium size is normal. The right atrium is severely dilated. AORTIC VALVE The aortic valve is probably trileaflet. The aortic valve is mildly to moderately calcified. Doppler and Color Flow revealed no significant aortic regurgitation. There is no significant aortic valvular stenosis. MITRAL VALVE The mitral valve leaflets are mildly calcified. There is no evidence of mitral valve prolapse. There is no mitral valve stenosis. Doppler and Color-flow revealed trace mitral regurgitation. TRICUSPID VALVE The tricuspid valve leaflets are mildly calcified. Doppler and Color Flow revealed moderate to severe tricuspid regurgitation. There is severe pulmonary hypertension. PAP is 72mmHg. There is no tricusp id valve stenosis. PULMONIC VALVE The pulmonary valve is normal in structure and function. Doppler and Color Flow revealed mild pulmoni c valvular regurgitation. There is no pulmonic valvular stenosis. GREAT VESSELS The aortic root is normal in size. The ascending aorta is normal in size. There is mild pulmonary art yuniel dilatation. IVC is dilated and not responsive with inspiration. PERICARDIAL EFFUSION There is no pleural effusion. There is no evidence of significant pericardial effusion. Critical Notification Critical Value: No <Conclusion> The left ventricular systolic function is normal and the ejection fraction is within normal range. Th e Ejection Fraction is 65-70%. There is normal LV segmental wall motion. The right ventricle is severely dilated. The right ventricle is moderately dilated. The right ventricular systolic function is mild to moderately reduced. There is mild pulmonary artery dilatation. Doppler and Color Flow revealed moderate to severe tricuspid regurgitation. There is severe pulmonary hypertension. PAP is 72mmHg. If pulmonary HTN is acute or not a known prior diagnosis, consider evaluation for P.E. Signed by : Chris Cooper, Electronically Approved : 07/07/2017 13:27:41
== END 2017-07-04 22:02 | disposition short-term general hospital (02) ==
LOC: ER 18:33 → UNDOADMOB 20:11 → 1 SOUTH 20:11 → ER 20:19
PROVIDERS: ADMIT Internal Medicine; ATTEND Internal Medicine
DX: R79.89 Other specified abnormal findings of blood chemistry (principal); J18.9 Pneumonia, unspecified organism; J44.0 Chronic obstructive pulmonary disease with (acute) lower respiratory infection; E03.9 Hypothyroidism, unspecified; I10 Essential (primary) hypertension; K21.9 Gastro-esophageal reflux disease without esophagitis; F02.80 Dementia in other diseases classified elsewhere, unspecified severity, without behavioral disturbance, psychotic disturbance, mood disturbance, and anxiety; F33.3 Major depressive disorder, recurrent, severe with psychotic symptoms; F63.9 Impulse disorder, unspecified; F41.9 Anxiety disorder, unspecified; G30.9 Alzheimer's disease, unspecified; R45.851 Suicidal ideations; Z79.899 Other long term (current) drug therapy
CPT/HCPCS: 94640; 96360; 99285; G0378; G0379; J7620; 36415; 71045; 80053; 81001; 82947; 83880; 84484; 85025; 87641; 93005; J7030

== ENCOUNTER 2017-07-04 22:04 | Inpatient (IN) | payer MEDICARE, OTHER ==
[~2017-07-04 22:04] MED LIST: ACET325T9 PO; ACET500T68 PO; ALBU2.5V14 NEB; BUSP10TA PO; CALC-30 PO; CLON0.5T PO; CLON0.5T3 PO; CLOP75TA PO; FERR-26 PO; FLUT1DIS IH; FURO40TA4 PO; IPRA4AER INH; LACT1CAP19 PO; LEVO137T3 PO; LEVO500T8 PO; LOPE2CAP88 PO; MAGN400O7 PO; MELA3TAB2 PO; MEMA7CAP PO; METO25TA4 PO; MIRT15TA PO; POTA10CA PO; RANI150C PO; SODI14.1 TP; VENL150C6 PO
--- NOTE | 2017-07-04 22:14 | PDOC ---
Exam Note: Saeid Note: Please also refer to the separate dictated note~for this date of service dictated separately.~Patient seen individually. Discussed the patient with Nursing staff reviewed the chart.~Reviewed interim history and current functioning. Reviewed vital signs,~Labs/ Radiology~and current medications noted below. Continue current treatment with the changes noted in the dictated addendum note Assessment: Vital Signs: Vital Signs Date Time Temp Pulse Resp B/P (MAP) Pulse Ox O2 Delivery O2 Flow Rate FiO2 07/04/17 21:50 92 Nasal Cannula 5.0 Current Medications: Meds: Active Scripts Active Reported Levofloxacin 500 Mg Tablet 1 Tab PO DAILY Culturelle (Lactobacillus Rhamnosus Gg) 1 Each Cap.sprink 1 Each PO DAILY Acetaminophen 500 Mg Tablet 650 Mg PO TID Venlafaxine Hcl Er (Venlafaxine Hcl) 150 Mg Cap.er.24h 1 Cap PO DAILY Levothyroxine Sodium 137 Mcg Tablet 1 Tab PO [id number] Metoprolol Tartrate 25 Mg Tablet 1 Tab PO BID Clonazepam 0.5 Mg Tablet 1 Tab PO TID Buspirone Hcl 10 Mg Tablet 1 Tab PO TID Furosemide 40 Mg Tablet 1 Tab PO DAILY Potassium Chloride 10 Meq Capsule.er 1 Cap PO DAILY Remeron (Mirtazapine) 15 Mg Tablet 1 Tab PO QHS Imodium A-D (Loperamide HCl) 2 Mg Capsule 2 Mg PO QID PRN Melatonin 3 Mg Tablet 6 Mg PO HS Ranitidine Hcl 150 Mg Capsule 1 Cap PO BID Klonopin (Clonazepam) 0.5 Mg Tablet 1 Tab PO BID PRN [place] Saline Nasal Gel (Sodium Chloride/Aloe Vera) 14.1 Gm Gel..gram. 1 Brenda TP QID PRN Namenda Xr (Memantine Hcl) 7 Mg Cap.spr.24 7 Mg PO DAILY Tylenol (Acetaminophen) 325 Mg Tablet 650 Mg PO Q4HRS PRN Calcium 500 + Vit D 400 Tablet (Calcium Carbonate/Vitamin D3) 1 Each Tablet 1 Each PO DAILY Milk Of Magnesia (Magnesium Hydroxide) 400 Mg/5 Ml Oral.susp 400 Mg PO DAILY PRN Clopidogrel (Clopidogrel Bisulfate) 75 Mg Tablet 1 Tab PO DAILYBFRSUP Albuterol Sulfate Conc Neb Soln (Albuterol Sulfate) 2.5 Mg/0.5 Ml Vial.neb 1 Vial NEB Q4HRS PRN Ferrous Sulfate 325 Mg Tablet 1 Tab PO DAILY I have reviewed the current psychotropics carefully including drug interactions. Risk benefit ratio favors no change other than as noted in my dictated progress note. Diagnosis: Problems: (1) Anxiety disorder (2) Major depressive disorder, recurrent episode CARY ALEX MD Jul 04, 2017 22:14
[2017-07-04] MEDS ORDERED: MAGNESIUM HYDROXIDE 2,400 MG/30 ML ORAL.SUSP. PO PRN ×2 (22:45)
[2017-07-04] MEDS ORDERED: ACETAMINOPHEN 325 MG TABLET PO PRN ×3 (22:45→23:00)
[2017-07-04] MEDS ORDERED: LOPERAMIDE 2 MG CAPSULE PO PRN (22:45)
[2017-07-04] MEDS ORDERED: METHYL SALICYLATE/MENTHOL TOPICAL OINTMENT 29GM TUBE. TP PRN (22:45)
[2017-07-04] MEDS ORDERED: SODIUM CHL/ALOE VERA NASAL GEL 14.1GM TUBE. TP PRN (22:45)
[2017-07-04] MEDS ORDERED: clonazePAM 0.5 MG TABLET PO PRN (22:45)
[2017-07-04] MEDS ORDERED: MAG HYDROX/AL HYDROX/SIMETH 30 ML ORAL.SUSP PO PRN (22:45)
[2017-07-05 00:26] VITALS: BP 102/66
[2017-07-05 00:31] LABS: BGAS PH 7.44 (7.35-7.45)
[2017-07-05] MEDS ORDERED: levoFLOXacin 500 MG TABLET PO SCH (06:00)
[2017-07-05 06:06] VITALS: BP 120/73
[2017-07-05] MEDS ORDERED: ALBUTEROL SULFATE 2.5 MG/3 ML NEBU. NEB PRN ×2 (06:30→21:15)
[2017-07-05] MEDS ORDERED: LEVOTHYROXINE 137 MCG TABLET PO SCH (07:00)
[2017-07-05] MEDS: IPRATRPIUM/ALBUTEROL 0.5/2.5MG 3 ML NEBU. NEB SCH ×4 (08:00→20:28)
[2017-07-05] MEDS: clonazePAM 0.5 MG TABLET PO SCH ×3 (08:56→19:42)
[2017-07-05] MEDS: ACETAMINOPHEN 325 MG TABLET PO SCH ×3 (08:56→19:43)
[2017-07-05] MEDS: LACTOBACILLUS RHAMNOSUS GG 1 CAPSULE. PO SCH ×2 (08:56→19:42)
[2017-07-05] MEDS: busPIRone 10 MG TABLET. PO SCH ×3 (08:56→19:42)
[2017-07-05] MEDS: METOPROLOL TART IMMED RELEASE 25 MG TABLET PO SCH ×2 (08:57→19:43)
[2017-07-05] MEDS ORDERED: MEMANTINE 5 MG TABLET. PO SCH (09:00)
[2017-07-05] MEDS ORDERED: FERROUS SULFATE 325 MG TABLET. PO SCH (09:00)
[2017-07-05] MEDS ORDERED: FUROSEMIDE 40 MG TABLET PO SCH (09:00)
[2017-07-05] MEDS ORDERED: IOHEXOL 300 MG/ML 75 ML VIAL. IV ONE (15:00)
[2017-07-05 16:28] VITALS: BP 101/57
--- NOTE | 2017-07-05 16:34 | RAD ---
Clinical history: Shortness of breath. Axial helical images of the chest were obtained after the administration of 60 cc of IV Omnipaque 300 and timed appropriately for a pulmonary arterial study. Multiplanar reconstruction was performed on a work station for a CT pulmonary angiogram of the chest with contrast. There are no filling defects to suggest pulmonary embolism. The more peripheral subsegmental pulmonary arteries are not well opacified limiting our sensitivity for small peripheral pulmonary emboli. There is patchy peripheral opacities in the mid and lower lungs and there is significant reticular opacities with consolidation in the lower lobes at the lung bases There are numerous mildly enlarged hilar lymph nodes. Impression: 1. No evidence of pulmonary embolism. 2. Bilateral infiltrates are interstitial and suggests atypical pneumonia. A subacute process such as lymphangitic spread of cancer is possible. Prior 3. Mild hilar lymphadenopathy bilaterally. PQRS Compliance Statement: One or more of the following individualized dose reduction techniques were utilized for this examination: 1. Automated exposure control 2. Adjustment of the mA and/or kV according to patient size 3. Use of iterative reconstruction technique
[2017-07-05] MEDS ORDERED: CLOPIDOGREL BISULFATE 75 MG TABLET PO SCH (17:00)
--- NOTE | 2017-07-05 18:01 | PDOC ---
Exam Note: Saeid Note: Please also refer to the separate dictated note~for this date of service dictated separately.~Patient seen individually. Discussed the patient with Nursing staff reviewed the chart.~Reviewed interim history and current functioning. Reviewed vital signs,~Labs/ Radiology~and current medications noted below. Continue current treatment with the changes noted in the dictated addendum note Assessment: Vital Signs: Vital Signs Date Time Temp Pulse Resp B/P (MAP) Pulse Ox O2 Delivery O2 Flow Rate FiO2 07/05/17 16:52 85 Simple Mask 4.0 07/05/17 16:28 97.3 73 16 101/57 (72) I&O Intake and Output 07/05/17 07:00 Intake Total 0 ml Balance 0 ml Intake Oral 0 ml Current Medications: Meds: Current Medications Acetaminophen (Tylenol) 650 mg PRN Q6HRS PRN PO PAIN / TEMP; Start 07/04/17 at 22:45; Stop 07/04/17 at 22:50; Status DC Multi-Ingredient Ointment (Analgesic [place]) 1 brenda PRN QID PRN TP MUSCLE PAIN; Start 07/04/17 at 22:45 Al Hydroxide/Mg Hydroxide (Mylanta Plus Xs) 15 ml PRN AFTMEALHC PRN PO DYSPEPSIA; Start 07/04/17 at 22:45 Magnesium Hydroxide (Milk Of Magnesia) 2,400 mg PRN QHS PRN PO CONSTIPATION; Start 07/04/17 at 22:45 Buspirone HCl (Buspar) 10 mg TID PO Last administered on 07/05/17at 13:38; Start 07/05/17 at 09:00 Clonazepam (KlonoPIN) 0.5 mg TID PO Last administered on 07/05/17at 13:38; Start 07/05/17 at 09:00 Clonazepam (KlonoPIN) 0.5 mg PRN BID PRN PO ANXIETY / AGITATION; Start 07/04/17 at 22:45 Mirtazapine (Remeron) 15 mg QHS PO ; Start 07/05/17 at 21:00 Acetaminophen (Tylenol) 650 mg TID PO Last administered on 07/05/17at 13:38; Start 07/05/17 at 09:00 Acetaminophen (Tylenol) 650 mg Q4HRS PRN PO PAIN; Start 07/04/17 at 22:45; Status UNV Clopidogrel Bisulfate (Plavix) 75 mg DAILYBFRSUP PO ; Start 07/05/17 at 17:00 Ferrous Sulfate (Feosol) 325 mg DAILY PO Last administered on 07/05/17at 08:59; Start 07/05/17 at 09:00 Furosemide (Lasix) 40 mg DAILY PO Last administered on 07/05/17at 08:59; Start at 09:00 Lactobacillus Rhamnosus (Culturelle) 1 cap BID PO Last administered on at 08:56; Start 07/05/17 at 09:00 Levofloxacin (Levaquin) 500 mg DAILY06 PO Last administered on 07/05/17at 06:39; Start 07/05/17 at 06:00 Levothyroxine Sodium (Synthroid) 137 mcg DAILY07 PO Last administered on at 06:39; Start 07/05/17 at 07:00 Loperamide HCl (Imodium) 2 mg PRN QID PRN PO DIARRHEA; Start 07/04/17 at 22:45 Magnesium Hydroxide (Milk Of Magnesia) 400 mg PRN DAILY PRN PO CONSTIPATION; Start 07/04/17 at 22:45 Metoprolol Tartrate (Lopressor) 25 mg BID PO Last administered on 07/05/17at 08: 57; Start 07/05/17 at 09:00 Sodium Chloride ([place] Saline Nasal) 1 brenda PRN QID PRN TP NASAL CONGESTION; Start 07/04/17 at 22:45 Acetaminophen (Tylenol) 650 mg PRN Q8HRS PRN PO PAIN / TEMP; Start 07/04/17 at 23:00 Albuterol/ Ipratropium (Duoneb) 3 ml Q4HRS NEB Last administered on 07/05/17at 16 :51; Start 07/05/17 at 08:00 Albuterol Sulfate (Ventolin) 2.5 mg PRN Q2HR PRN NEB SHORTNESS OF BREATH; Start 07/05/17 at 06:30 Memantine (Namenda) 5 mg DAILY PO Last administered on 07/05/17at 08:56; Start at 09:00 Iohexol (Omnipaque 300 Mg/ml) 75 ml 1X ONCE IV Last administered on 07/05/17at 15:39; Start 07/05/17 at 15:00; Stop 07/05/17 at 15:01; Status DC Active Scripts Active Reported Levofloxacin 500 Mg Tablet 500 Mg PO DAILY06 Culturelle (Lactobacillus Rhamnosus Gg) 1 Each Cap.sprink 1 Cap PO BID Acetaminophen 500 Mg Tablet 650 Mg PO TID Levothyroxine Sodium 137 Mcg Tablet 137 Mcg PO DAILY07 Metoprolol Tartrate 25 Mg Tablet 25 Mg PO BID Clonazepam 0.5 Mg Tablet 0.5 Mg PO TID Buspirone Hcl 10 Mg Tablet 10 Mg PO TID Furosemide 40 Mg Tablet 40 Mg PO DAILY Remeron (Mirtazapine) 15 Mg Tablet 15 Mg PO QHS Imodium A-D (Loperamide HCl) 2 Mg Capsule 2 Mg PO QID PRN Melatonin 3 Mg Tablet 6 Mg PO HS Klonopin (Clonazepam) 0.5 Mg Tablet 0.5 Mg PO PRN BID PRN [place] Saline Nasal Gel (Sodium Chloride/Aloe Vera) 14.1 Gm Gel..gram. 1 Brenda TP QID PRN Namenda Xr (Memantine Hcl) 7 Mg Cap.spr.24 7 Mg PO DAILY Tylenol (Acetaminophen) 325 Mg Tablet 650 Mg PO Q4HRS PRN Milk Of Magnesia (Magnesium Hydroxide) 400 Mg/5 Ml Oral.susp 400 Mg PO DAILY PRN Clopidogrel (Clopidogrel Bisulfate) 75 Mg Tablet 75 Mg PO DAILYBFRSUP Albuterol Sulfate Conc Neb Soln (Albuterol Sulfate) 2.5 Mg/0.5 Ml Vial.neb 1 Vial NEB Q4HRS PRN Ferrous Sulfate 325 Mg Tablet 325 Mg PO DAILY I have reviewed the current psychotropics carefully including drug interactions. Risk benefit ratio favors no change other than as noted in my dictated progress note. Diagnosis: Problems: (1) Dementia in Alzheimer's disease with delusions (2) Dementia in Alzheimer's disease with depression (3) Dementia, vascular, with delusions (4) Dementia, vascular, with depression (5) Major depressive disorder, recurrent episode (6) Anxiety disorder CARY ALEX MD Jul 05, 2017 18:01
[2017-07-05] MEDS ORDERED: predniSONE 20 MG TABLET PO SCH (20:00)
--- NOTE | 2017-07-05 20:18 | PDOC ---
Exam Note: Saeid Note: Please also refer to the separate dictated note~for this date of service dictated separately.~Patient seen individually. Discussed the patient with Nursing staff reviewed the chart.~Reviewed interim history and current functioning. Reviewed vital signs,~Labs/ Radiology~and current medications noted below. Continue current treatment with the changes noted in the dictated addendum note Assessment: Vital Signs: Vital Signs Date Time Temp Pulse Resp B/P (MAP) Pulse Ox O2 Delivery O2 Flow Rate FiO2 07/05/17 19:43 73 101/57 07/05/17 16:52 85 Simple Mask 4.0 07/05/17 16:28 97.3 16 I&O Intake and Output 07/05/17 07:00 Intake Total 0 ml Balance 0 ml Intake Oral 0 ml Current Medications: Meds: Current Medications Acetaminophen (Tylenol) 650 mg PRN Q6HRS PRN PO PAIN / TEMP; Start 07/04/17 at 22:45; Stop 07/04/17 at 22:50; Status DC Multi-Ingredient Ointment (Analgesic [place]) 1 brenda PRN QID PRN TP MUSCLE PAIN; Start 07/04/17 at 22:45 Al Hydroxide/Mg Hydroxide (Mylanta Plus Xs) 15 ml PRN AFTMEALHC PRN PO DYSPEPSIA; Start 07/04/17 at 22:45 Magnesium Hydroxide (Milk Of Magnesia) 2,400 mg PRN QHS PRN PO CONSTIPATION; Start 07/04/17 at 22:45 Buspirone HCl (Buspar) 10 mg TID PO Last administered on 07/05/17at 19:42; Start 07/05/17 at 09:00 Clonazepam (KlonoPIN) 0.5 mg TID PO Last administered on 07/05/17at 19:42; Start 07/05/17 at 09:00 Clonazepam (KlonoPIN) 0.5 mg PRN BID PRN PO ANXIETY / AGITATION; Start 07/04/17 at 22:45 Mirtazapine (Remeron) 15 mg QHS PO Last administered on 07/05/17at 19:45; Start 07/05/17 at 21:00 Acetaminophen (Tylenol) 650 mg TID PO Last administered on 07/05/17at 19:43; Start 07/05/17 at 09:00 Acetaminophen (Tylenol) 650 mg Q4HRS PRN PO PAIN; Start 07/04/17 at 22:45; Status UNV Clopidogrel Bisulfate (Plavix) 75 mg DAILYBFRSUP PO Last administered on at 18:37; Start 07/05/17 at 17:00 Ferrous Sulfate (Feosol) 325 mg DAILY PO Last administered on 07/05/17at 08:59; Start 07/05/17 at 09:00 Furosemide (Lasix) 40 mg DAILY PO Last administered on 07/05/17at 08:59; Start at 09:00 Lactobacillus Rhamnosus (Culturelle) 1 cap BID PO Last administered on at 19:42; Start 07/05/17 at 09:00 Levofloxacin (Levaquin) 500 mg DAILY06 PO Last administered on 07/05/17at 06:39; Start 07/05/17 at 06:00 Levothyroxine Sodium (Synthroid) 137 mcg DAILY07 PO Last administered on at 06:39; Start 07/05/17 at 07:00 Loperamide HCl (Imodium) 2 mg PRN QID PRN PO DIARRHEA; Start 07/04/17 at 22:45 Magnesium Hydroxide (Milk Of Magnesia) 400 mg PRN DAILY PRN PO CONSTIPATION; Start 07/04/17 at 22:45 Metoprolol Tartrate (Lopressor) 25 mg BID PO Last administered on 07/05/17at 08: 57; Start 07/05/17 at 09:00 Sodium Chloride ([place] Saline Nasal) 1 brenda PRN QID PRN TP NASAL CONGESTION; Start 07/04/17 at 22:45 Acetaminophen (Tylenol) 650 mg PRN Q8HRS PRN PO PAIN / TEMP; Start 07/04/17 at 23:00 Albuterol/ Ipratropium (Duoneb) 3 ml Q4HRS NEB Last administered on 07/05/17at 16 :51; Start 07/05/17 at 08:00 Albuterol Sulfate (Ventolin) 2.5 mg PRN Q2HR PRN NEB SHORTNESS OF BREATH; Start 07/05/17 at 06:30 Memantine (Namenda) 5 mg DAILY PO Last administered on 07/05/17at 08:56; Start at 09:00 Iohexol (Omnipaque 300 Mg/ml) 75 ml 1X ONCE IV Last administered on 07/05/17at 15:39; Start 07/05/17 at 15:00; Stop 07/05/17 at 15:01; Status DC Prednisone (Prednisone) 40 mg DAILY PO Last administered on 07/05/17at 19:42; Start 07/05/17 at 20:00 Bupropion HCl (Wellbutrin Xl) 150 mg DAILY PO ; Start 07/06/17 at 09:00 Active Scripts Active Reported Levofloxacin 500 Mg Tablet 500 Mg PO DAILY06 Culturelle (Lactobacillus Rhamnosus Gg) 1 Each Cap.sprink 1 Cap PO BID Acetaminophen 500 Mg Tablet 650 Mg PO TID Levothyroxine Sodium 137 Mcg Tablet 137 Mcg PO DAILY07 Metoprolol Tartrate 25 Mg Tablet 25 Mg PO BID Clonazepam 0.5 Mg Tablet 0.5 Mg PO TID Buspirone Hcl 10 Mg Tablet 10 Mg PO TID Furosemide 40 Mg Tablet 40 Mg PO DAILY Remeron (Mirtazapine) 15 Mg Tablet 15 Mg PO QHS Imodium A-D (Loperamide HCl) 2 Mg Capsule 2 Mg PO QID PRN Melatonin 3 Mg Tablet 6 Mg PO HS Klonopin (Clonazepam) 0.5 Mg Tablet 0.5 Mg PO PRN BID PRN [place] Saline Nasal Gel (Sodium Chloride/Aloe Vera) 14.1 Gm Gel..gram. 1 Brenda TP QID PRN Namenda Xr (Memantine Hcl) 7 Mg Cap.spr.24 7 Mg PO DAILY Tylenol (Acetaminophen) 325 Mg Tablet 650 Mg PO Q4HRS PRN Milk Of Magnesia (Magnesium Hydroxide) 400 Mg/5 Ml Oral.susp 400 Mg PO DAILY PRN Clopidogrel (Clopidogrel Bisulfate) 75 Mg Tablet 75 Mg PO DAILYBFRSUP Albuterol Sulfate Conc Neb Soln (Albuterol Sulfate) 2.5 Mg/0.5 Ml Vial.neb 1 Vial NEB Q4HRS PRN Ferrous Sulfate 325 Mg Tablet 325 Mg PO DAILY I have reviewed the current psychotropics carefully including drug interactions. Risk benefit ratio favors no change other than as noted in my dictated progress note. Diagnosis: Problems: (1) Anxiety disorder (2) Major depressive disorder, recurrent episode (3) Dementia, vascular, with depression (4) Dementia, vascular, with delusions (5) Dementia in Alzheimer's disease with depression (6) Dementia in Alzheimer's disease with delusions CARY ALEX MD Jul 05, 2017 20:18
[2017-07-05] MEDS ORDERED: MIRTAZAPINE 15 MG TABLET PO SCH (21:00)
[2017-07-05 21:06] VITALS: BP 123/77
[2017-07-05] MEDS ORDERED: METH57CR7 TP (21:50)
[2017-07-05] MEDS ORDERED: BUDE0.5A3 NEB (21:50)
[2017-07-05] MEDS ORDERED: MONT10TA9 PO (21:50)
[2017-07-05] MEDS ORDERED: CLON0.25 PO (21:50)
[2017-07-05] MEDS ORDERED: LEVO500P IV (21:50)
[2017-07-05] MEDS ORDERED: MAG355OR17 PO (21:50)
[2017-07-05] MEDS ORDERED: PIPE3.3734 IV (21:50)
[2017-07-05] MEDS ORDERED: BUPR-192 PO (21:50)
[2017-07-05] MEDS ORDERED: IPRA3AMP NEB (21:50)
[2017-07-05] MEDS ORDERED: METH40VI IJ (21:50)
[2017-07-05] MEDS ORDERED: CLON0.5T3 PO (21:50)
[2017-07-05] MEDS ORDERED: MEMA10TA PO (21:50)
[2017-07-05] MEDS ORDERED: methylPREDNISolone SOD SUCC PF 40 MG/ML VIAL. IV SCH (22:00)
[2017-07-05] MEDS ORDERED: PIPERACILLIN/TAZO IV Push 3.375 GM VIAL. IVP SCH (22:00)
[2017-07-05] MEDS ORDERED: PIPERACILLIN/TAZOBACTAM 3.375 GM in IV NORMAL SALINE 50ML 50 ML IV SCH (22:00)
--- NOTE | 2017-07-05 22:18 | HP ---
ADMIT DATE: 07/05/2017 PSYCHIATRIC ADMISSION HISTORY/EVALUATION This note covers elements not covered in my initial note for 07/05/2017. The patient was seen individually evening of 07/05/2017. IDENTIFYING DATA: The patient is a 61-year-old female referred to us from [address] [place] [address] Medical/Surgical floor per Dr. Tompkins after she was medically stabilized for her elevated cardiac enzymes and treated for pneumonia. She was initially referred to us from [facility]. After she tried to electrocute herself in a suicide attempt a few days back sent to [facility] in [place], medically stabilized, returned back to the long term and then on the day of the initial referral, she put a plastic bag over her head in an attempt to suffocate herself and was suicidal. She was referred to [facility] Emergency Room, found to have raised cardiac enzymes, admitted to [address] [place] [address], medically stabilized and treated for pneumonia. She was still noted to be depressed at risk of suicide, though she denied active suicidal ideation, referred for inpatient psychiatric stabilization. CHIEF COMPLAINT: "I am having trouble breathing." The patient is on 6 liters with the mask. Otherwise, she desaturates down to the 80s per nursing report. Information from daughter indicates that she has a past diagnosis of narcissistic personality disorder. HISTORY OF PRESENT ILLNESS: The patient has a history of increasing symptoms of depression, feeling hopeless, helpless, worthless with the suicide attempt noted above. She has also been anxious, somewhat delusional, forgetful, confused, unable to state the name of the current president as I questioned her. No clear history of bipolar disorder or homicidal ideation. PAST PSYCHIATRIC HISTORY: As above. MEDICAL HISTORY: Status post pneumonia, raised cardiac enzymes appear to have stabilized, hypothyroidism, iron deficiency anemia, GERD, COPD, fluid retention due to renal problems. CURRENT PSYCHOTROPICS: Remeron 7.5 mg at bedtime, Klonopin 0.5 mg t.i.d. and p.r.n. b.i.d., BuSpar 10 mg t.i.d. DRUG ALLERGIES: AZITHROMYCIN, BUTORPHANOL, DEXLANSOPRAZOLE, MEPERIDINE, and PERPHENAZINE. DIET: Regular. ACCU-CHEKS: No. Takes her medications whole. Ambulates in a wheelchair. UA is negative. FAMILY HISTORY: Noncontributory. SOCIAL HISTORY: No alcohol, drug abuse, physical, sexual or elder abuse history is noted. Not known to be a perpetrator. Reaction to hospitalization, the patient accepting of this at times. ASSETS: Supportive family, stable, living at the long term. MENTAL STATUS EXAMINATION: The patient seen individually in her room, evening of 07/05/2017. She is oriented to herself and situation. Speech is coherent, has some latency. Abstraction fair, computation impaired, language function intact, attention span short. Mood and affect, somewhat depressed, withdrawn. No active suicidal or homicidal ideation, but given her suicide attempts, staff will be observing her close to the nursing station. IMPRESSION: Major depressive disorder with psychotic features; anxiety disorder, unspecified; cognitive disorder, unspecified versus major neurocognitive disorder, early vascular with depression, delusion. Rest unchanged as above. PLAN: Admit to geropsychiatry unit at [facility]. I will see the patient daily from a psychiatric standpoint, medical followup per Dr. Pickard/Dr Tompkins. The patient slept 4-1/2 hours previous evening. She is depressed, anxious. We will start her on Wellbutrin XL 150 mg p.o. daily. Continue rest of the psychotropics. Adjust further as clinically indicated. CARY ALEX MD DR: ELIZABETH/trung JOB#: [id number] / [id number]
[2017-07-06] MEDS ORDERED: IPRATRPIUM/ALBUTEROL 0.5/2.5MG 3 ML NEBU. NEB SCH (08:00)
[2017-07-06] MEDS ORDERED: BUDESONIDE 0.5 MG/2 ML NEBU NEB SCH (08:00)
[2017-07-06] MEDS ORDERED: buPROPion XL 150 MG TAB.ER.24H PO SCH (09:00)
[2017-07-06] MEDS ORDERED: MONTELUKAST 10 MG TABLET. PO SCH (21:00)
--- NOTE | 2017-07-08 14:15 | EKG ---
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
== END 2017-07-05 22:03 | disposition short-term general hospital (02) | DRG 884 ==
LOC: GEROPSY 22:04
PROVIDERS: ADMIT Psychiatry & Neurology Psychiatry; ATTEND Psychiatry & Neurology Psychiatry
DX: F01.50 Vascular dementia, unspecified severity, without behavioral disturbance, psychotic disturbance, mood disturbance, and anxiety (principal); F33.3 Major depressive disorder, recurrent, severe with psychotic symptoms; G30.9 Alzheimer's disease, unspecified; F02.80 Dementia in other diseases classified elsewhere, unspecified severity, without behavioral disturbance, psychotic disturbance, mood disturbance, and anxiety; F41.9 Anxiety disorder, unspecified; J44.9 Chronic obstructive pulmonary disease, unspecified; K21.9 Gastro-esophageal reflux disease without esophagitis; F60.81 Narcissistic personality disorder; E03.9 Hypothyroidism, unspecified; Z79.899 Other long term (current) drug therapy; Z87.01 Personal history of pneumonia (recurrent); Z88.6 Allergy status to analgesic agent; Z88.1 Allergy status to other antibiotic agents; Z88.8 Allergy status to other drugs, medicaments and biological substances
CPT/HCPCS: 36415; 71045; 71275; 80053; 81001; 82803; 82947; 83880; 84484; 85025; 87641; 93005; 94640; J7512; J7620; Q9967

== ENCOUNTER 2017-07-05 22:16 | Inpatient (IN) | payer MEDICARE, OTHER ==
[~2017-07-05] VITALS: Ht 157.5 cm; Wt 76.4 kg
[2017-07-05 22:15] VITALS: BP 143/79
[~2017-07-05 22:16] MED LIST changes: +BUDE0.5A3 NEB; +BUPR-192 PO; +CLON0.25 PO; +IPRA3AMP NEB; +LEVO500P IV; +MAG355OR17 PO; +MEMA10TA PO; +METH40VI IJ; +METH57CR7 TP; +MONT10TA9 PO; +PIPE3.3734 IV
[2017-07-05] MEDS ORDERED: ALBUTEROL SULFATE 2.5 MG/3 ML NEBU. NEB PRN (22:30)
[2017-07-05] MEDS ORDERED: PIPERACILLIN/TAZOBACTAM 3.375 GM in IV NORMAL SALINE 50ML 50 ML IV SCH (23:00)
--- NOTE | 2017-07-05 23:00 | NUR ---
Pt admitted from [facility] via wheelchair to ICU Bed 2 diagnosis-Pneumonia. Pt presents A&O, denies any complaints at this time. Pt denies any suicidal ideations. Pt O2 is @ 50%FIO2 via venti-mask, o2 sats 92% at this time. Oriented pt to unit, nurse, call light and plan of care. V/u stated. will monitor pt closely.
[2017-07-05 23:16] VITALS: BP 125/85
[2017-07-05 23:50] LABS: BASO % 0 % (0-3); EOS # 0.1 x10^3/uL (0.0-0.7); EOS % 1 % (0-3); HEMOGLOBIN 15.2 g/dL (12.0-15.5); LYMPH # 1.2 x10^3/uL (1.0-4.8); LYMPH % 16 % (24-48); MEAN CORPUSCULAR HEMOGLOBIN 29 pg (25-35); MEAN CORPUSCULAR HGB CONC 33 g/dL (31-37); MEAN CORPUSCULAR VOLUME 88 fL (79-100); MONO # 0.2 x10^3/uL (0.0-1.1); MONO % 3 % (0-9); NEUT # 5.9 x10^3uL (1.8-7.7); NEUT % 79 % (31-73); PLATELET COUNT 285 x10^3/uL (140-400); RED BLOOD COUNT 5.24 x10^6/uL (3.50-5.40); WHITE BLOOD COUNT 7.5 x10^3/uL (4.0-11.0)
[2017-07-05] MEDS: MONTELUKAST 10 MG TABLET. PO SCH (23:53)
[2017-07-05] MEDS: methylPREDNISolone SOD SUCC PF 40 MG/ML VIAL. IV SCH (23:53)
[2017-07-05] MEDS: PIPERACILLIN/TAZO IV Push 3.375 GM VIAL. IVP SCH (23:54)
[2017-07-06] VITALS (19 sets, daily range): BP systolic 95–142; BP diastolic 66–88
[2017-07-06 00:02] LABS: ALBUMIN 3.2 g/dL (3.4-5.0); ALBUMIN/GLOBULIN RATIO 0.7 (1.0-1.7); CALCIUM 8.7 mg/dL (8.5-10.1); CREATININE 1.1 mg/dL (0.6-1.0); GFR 50.7; POTASSIUM 3.9 mmol/L (3.5-5.1); TOTAL BILIRUBIN 0.9 mg/dL (0.2-1.0); TOTAL PROTEIN 8.1 g/dL (6.4-8.2)
[2017-07-06] MEDS ORDERED: MAGNESIUM HYDROXIDE 2,400 MG/30 ML ORAL.SUSP. PO PRN (01:15)
[2017-07-06] MEDS ORDERED: SODIUM CHL/ALOE VERA NASAL GEL 14.1GM TUBE. TP PRN (01:15)
[2017-07-06] MEDS ORDERED: ACETAMINOPHEN 325 MG TABLET PO PRN (01:15)
[2017-07-06] MEDS ORDERED: LOPERAMIDE 2 MG CAPSULE PO PRN (01:15)
[2017-07-06] MEDS ORDERED: METHYL SALICYLATE/MENTHOL TOPICAL OINTMENT 29GM TUBE. TP PRN (02:15)
[2017-07-06] MEDS: IPRATRPIUM/ALBUTEROL 0.5/2.5MG 3 ML NEBU. NEB SCH ×4 (05:19→20:24)
[2017-07-06] MEDS: methylPREDNISolone SOD SUCC PF 40 MG/ML VIAL. IV SCH ×3 (05:45→21:25)
[2017-07-06] MEDS: PIPERACILLIN/TAZO IV Push 3.375 GM VIAL. IVP SCH ×3 (06:11→22:17)
[2017-07-06] MEDS: MEMANTINE 5 MG TABLET. PO SCH (08:16)
[2017-07-06] MEDS: clonazePAM 0.5 MG TABLET PO SCH ×3 (08:16→21:25)
[2017-07-06] MEDS: LACTOBACILLUS RHAMNOSUS GG 1 CAPSULE. PO SCH ×2 (08:16→21:25)
[2017-07-06] MEDS: METOPROLOL TART IMMED RELEASE 25 MG TABLET PO SCH ×2 (08:17→21:26)
[2017-07-06] MEDS: FERROUS SULFATE 325 MG TABLET. PO SCH (08:17)
[2017-07-06] MEDS: busPIRone 10 MG TABLET. PO SCH ×3 (08:17→21:26)
[2017-07-06] MEDS: FUROSEMIDE 40 MG TABLET PO SCH (08:17)
[2017-07-06] MEDS: buPROPion XL 150 MG TAB.ER.24H PO SCH (08:17)
[2017-07-06] MEDS: LEVOTHYROXINE 137 MCG TABLET PO SCH (08:17)
[2017-07-06] MEDS ORDERED: ENOXAPARIN 30 MG/0.3 ML DISP.SYRIN. SQ SCH (08:30)
--- NOTE | 2017-07-06 08:37 | NUR ---
IP: patient has +MRSA nasal screen from 118, requires contact precautions until 2 negative results 7 days apart.
[2017-07-06] MEDS ORDERED: VANCOMYCIN PER PHARMACY MC PRN (08:45)
[2017-07-06] MEDS ORDERED: VANCOMYCIN 1.75 GM in IV NORMAL SALINE 500ML 500 ML IV ONE (09:00)
[2017-07-06 09:40] LABS: BGAS PH 7.42 (7.35-7.45)
[2017-07-06] MEDS: ENOXAPARIN 40 MG/0.4 ML DISP.SYRIN. SQ SCH (10:00)
[2017-07-06] MEDS: BUDESONIDE 0.5 MG/2 ML NEBU NEB SCH ×2 (10:00→20:24)
--- NOTE | 2017-07-06 11:45 | NUR ---
PT very tearful. Pt wanting to call daughter, and call facility. Patient wanting to go back to facility so wants to talk to them. Explained that we have social workers her will speak with her facility when she is ready to go back. PT does not understand why she cannot go back today. Explained that she is in ICU and that she is sick, and that DR Jeffery will be the one to decide if she can go back or got to [facility]. Reassured patient that she is safe and starting to get better. Facility called and asked that we not let her use the phone to call them anymore, and to keep communication between her daughter, and social workes at [facility]. PT called them explaining that she was sorry for her outburst and that she wanted to go back to facility today. Leslie GREGORIO
--- NOTE | 2017-07-06 13:44 | HP ---
ADMIT DATE: 07/05/2017 REASON FOR ADMISSION: Hypoxemia, pneumonia. HISTORY OF PRESENT ILLNESS: This is a 61-year-old female who was initially admitted to [address] [place] [address] on 07/03/2017 for hypoxemia and exacerbation of COPD. She then went upstairs to the [facility] where she was supposed to go after a suicide attempt from [facility] in [place], [place]. A rapid response was called yesterday evening because of hypoxemia and chest CT shows no evidence of pulmonary embolism, but bilateral interstitial infiltrates suggestive of a typical pneumonia. PAST MEDICAL HISTORY: Severe depression, suicide attempts, tried to electrocute herself as well as put a plastic bag over her head. Chronic hypoxic respiratory failure, COPD, she is on chronic oxygen; recently had elevated troponins, chronic kidney disease stage 3, hypothyroidism. CURRENT MEDICATIONS: Reviewed and are available on the AUG. ALLERGIES: AZITHROMYCIN, BUTORPHANOL, DEXILANT, MEPERIDINE, and PERPHENAZINE. FAMILY HISTORY: Supportive daughter. SOCIAL HISTORY: The patient has been depressed since her left her several years ago. She is residing in a jail. She no longer walks. REVIEW OF SYSTEMS: The patient states "I am no longer suicidal. I want to go back to the [facility], I am slightly short of breath, but otherwise I feel fine." OBJECTIVE: VITAL SIGNS: Blood pressure 140/80, pulse 79, temperature 98, pulse ox 91% on 5 liters. Height 62 inches, weight 156 pounds. GENERAL: Pale, 61-year-old who looks older than her stated age. Hair is rahman. HEENT: Eyes were clear. Nose was patent. Throat was clear. NECK: Supple, without adenopathy. LUNGS: With some scattered rhonchi without wheezes. CARDIOVASCULAR: Regular rhythm and rate with a 2/6 systolic murmur heard at the pulmonic area. ABDOMEN: Soft, nontender. EXTREMITIES: Without edema. DIAGNOSTIC DATA: CT of the chest show bilateral interstitial pneumonia, atypical. LABORATORY DATA: White count is normal. Blood gas hypoxemia with pO2 of 54, pCO2 of 42 and normal pH. Chemistry profile, creatinine 1.1, GFR is 50.7, albumin is 3.2. ASSESSMENT: 1. Bilateral interstitial pneumonia. 2. Chronic hypoxic respiratory failure. 3. Chronic obstructive pulmonary disease. 4. Chronic kidney disease, stage 2. 5. Mild protein calorie malnutrition. 6. Suicide attempt with electrocution and bag over her head. 7. Severe depression and anxiety. Initially, the patient stated she wanted to be placed on hospice then changed her mind. PLAN: IV antibiotics, oxygen, breathing treatments, consult Dr. Jeffery and decide on disposition. SARAH KING DO DR: NENA/trung JOB#: [id number] / [id number]
--- NOTE | 2017-07-06 16:48 | NUR ---
Pharmacy Vancomycin Dosing Note S:Consulted to monitor and dose vancomycin started 07/06/17. O:RAFY CASTILLO is a 61 year old F with Pneumonia . Height: 5 feet, 2 inches Weight: 70.980745 kg [place] Body Weight: Adjusted Body Weight: Dosing Weight: Actual Other Antibiotics: LEVOFLOXACIN 500MG Q24HRS/ ZOSYN 3.375GM Q8HRS LABS: Last BUN: 18 Last Creatinine: 1.1 Creatinine Clearance: Last WBC: 7.5 Last Platelets: 285 Tmax (past 24 hours): Microbiology: I/O: Drug Levels: Last level: on at Last dose given 07/06/17 at 0848 Vancomycin Dosing: Loading Dose: 1750 mg x1 Dosing Weight: Actual Target Trough: 15-20 A: Based on: P: 1. Begin Vancomycin 1000 mg IV q24h 2. Follow up Trough level on 07/08/17 at 0830 3. Pharmacy will continue to monitor, follow and adjust therapy as needed. BALJIT BOONE [facility], 07/06/17 [id number]
[2017-07-06] MEDS: CLOPIDOGREL BISULFATE 75 MG TABLET PO SCH (17:58)
--- NOTE | 2017-07-06 18:19 | PDOC ---
Exam Note: Saeid Note: Please also refer to the separate dictated note~for this date of service dictated separately.~Patient seen individually. Discussed the patient with Nursing staff reviewed the chart.~Reviewed interim history and current functioning. Reviewed vital signs,~Labs/ Radiology~and current medications noted below. Continue current treatment with the changes noted in the dictated addendum note Assessment: Vital Signs: Vital Signs Date Time Temp Pulse Resp B/P (MAP) Pulse Ox O2 Delivery O2 Flow Rate FiO2 07/06/17 17:15 85 25 112/73 (86) 90 07/06/17 16:33 Venturi Mask 15.0 07/06/17 09:00 98.0 I&O Intake and Output 07/06/17 06:59 Intake Total 100 ml Output Total 1 ml Balance 99 ml Intake Oral 100 ml Output Urine Total 1 ml Labs: Laboratory Tests Test 07/05/17 23:30 07/06/17 09:32 White Blood Count 7.5 x10^3/uL (4.0-11.0) Red Blood Count 5.24 x10^6/uL (3.50-5.40) Hemoglobin 15.2 g/dL (12.0-15.5) Hematocrit 46.0 % (36.0-47.0) Mean Corpuscular Volume 88 fL (79-100) Mean Corpuscular Hemoglobin 29 pg (25-35) Mean Corpuscular Hemoglobin Concent 33 g/dL (31-37) Red Cell Distribution Width 17.0 % (11.5-14.5) H Platelet Count 285 x10^3/uL (140-400) Neutrophils (%) (Auto) 79 % (31-73) H Lymphocytes (%) (Auto) 16 % (24-48) L Monocytes (%) (Auto) 3 % (0-9) Eosinophils (%) (Auto) 1 % (0-3) Basophils (%) (Auto) 0 % (0-3) Neutrophils # (Auto) 5.9 x10^3uL (1.8-7.7) Lymphocytes # (Auto) 1.2 x10^3/uL (1.0-4.8) Monocytes # (Auto) 0.2 x10^3/uL (0.0-1.1) Eosinophils # (Auto) 0.1 x10^3/uL (0.0-0.7) Basophils # (Auto) 0.0 x10^3/uL (0.0-0.2) Sodium Level 140 mmol/L (136-145) Potassium Level 3.9 mmol/L (3.5-5.1) Chloride Level 102 mmol/L (98-107) Carbon Dioxide Level 29 mmol/L (21-32) Anion Gap 9 (6-14) Blood Urea Nitrogen 18 mg/dL (7-20) Creatinine 1.1 mg/dL (0.6-1.0) H Estimated GFR (Cockcroft-Gault) 50.7 BUN/Creatinine Ratio 16 (6-20) Glucose Level 140 mg/dL (70-99) H Lactic Acid Level 1.1 mmol/L (0.4-2.0) Calcium Level 8.7 mg/dL (8.5-10.1) Total Bilirubin 0.9 mg/dL (0.2-1.0) Aspartate Amino Transferase (AST) 33 U/L (15-37) Alanine Aminotransferase (ALT) 18 U/L (14-59) Alkaline Phosphatase 134 U/L (46-116) H Total Protein 8.1 g/dL (6.4-8.2) Albumin 3.2 g/dL (3.4-5.0) L Albumin/Globulin Ratio 0.7 (1.0-1.7) L Blood pH 7.42 (7.35-7.45) Blood Gas PCO2 42 mmHg (35-45) Blood Gas PO2 54 mmHg (80-100) L Blood Gas HCO3 27 mmol/L (22-26) H Arterial Bld O2 Saturation (Calc) 89 % (92-99) L FiO2 44 % Current Medications: Meds: Current Medications Piperacillin Sod/ Tazobactam Sod 3.375 gm/Sodium Chloride 50 ml @ 100 mls/hr Q8HRS IV ; Start 07/05/17 at 23:00; Status UNV Levofloxacin/ Dextrose 100 ml @ 100 mls/hr Q24H IV ; Start 07/07/17 at 06:00 Methylprednisolone Sodium Succinate (SOLU-Medrol 40MG VIAL) 40 mg Q8HRS IV Last administered on 07/06/17at 15:24; Start 07/05/17 at 23:00 Albuterol/ Ipratropium (Duoneb) 3 ml RTQID NEB Last administered on 07/06/17 16 :32; Start 07/06/17 at 08:00 Albuterol Sulfate (Ventolin) 2.5 mg PRN Q2HR PRN NEB SHORTNESS OF BREATH; Start 07/05/17 at 22:30 Montelukast Sodium (Singulair) 10 mg QHS PO Last administered on 07/05/17at 23:53 ; Start 07/05/17 at 23:00 Budesonide (Pulmicort) 0.5 mg RTBID NEB Last administered on 07/06/17at 10:00; Start 07/06/17 at 08:00 Piperacillin Sod/ Tazobactam Sod (Zosyn) 3.375 gm Q8HRS IVP Last administered on 07/06/17 15:24; Start 07/05/17 at 23:00 Levofloxacin/ Dextrose 50 ml @ 50 mls/hr Q1H IV Last administered on 07/06/17 05:45; Start 07/06/17 at 06:00; Stop 07/06/17 at 07:08; Status DC Acetaminophen (Tylenol) 650 mg PRN Q4HRS PRN PO MILD PAIN; Start 07/06/17 at 01: 15 Bupropion HCl (Wellbutrin Xl) 150 mg DAILY PO Last administered on 07/06/17 08: 17; Start 07/06/17 at 09:00 Buspirone HCl (Buspar) 10 mg TID PO Last administered on 07/06/17 15:24; Start 07/06/17 at 09:00 Clonazepam (KlonoPIN) 0.5 mg BID PO Last administered on 07/06/17 08:16; Start 07/06/17 at 09:00 Clopidogrel Bisulfate (Plavix) 75 mg DAILYBFRSUP PO Last administered on 17:58; Start 07/06/17 at 17:00 Ferrous Sulfate (Feosol) 325 mg DAILY PO Last administered on 07/06/17 08:17; Start 07/06/17 at 09:00 Furosemide (Lasix) 40 mg DAILY PO Last administered on 07/06/17 08:17; Start at 09:00 Lactobacillus Rhamnosus (Culturelle) 1 cap BID PO Last administered on 1/8/ 18at 08:16; Start 07/06/17 at 09:00 Levothyroxine Sodium (Synthroid) 137 mcg DAILY07 PO Last administered on at 08:17; Start 07/06/17 at 07:00 Loperamide HCl (Imodium) 2 mg PRN QID PRN PO DIARRHEA; Start 07/06/17 at 01:15 Magnesium Hydroxide (Milk Of Magnesia) 400 mg PRN DAILY PRN PO CONSTIPATION; Start 07/06/17 at 01:15 Memantine (Namenda) 5 mg DAILY PO Last administered on 07/06/17at 08:16; Start at 09:00 Metoprolol Tartrate (Lopressor) 25 mg BID PO Last administered on 07/06/17at 08: 17; Start 07/06/17 at 09:00 Mirtazapine (Remeron) 15 mg QHS PO ; Start 07/06/17 at 21:00 Montelukast Sodium (Singulair) 10 mg HS PO ; Start 07/06/17 at 21:00; Stop at 21:00; Status DC Sodium Chloride ([place] Saline Nasal) 1 brenda PRN QID PRN TP NASAL CONGESTION; Start 07/06/17 at 01:15 Multi-Ingredient Ointment (Analgesic [place]) 1 brenda PRN QID PRN TP MUSCLE PAIN; Start 07/06/17 at 02:15 Clonazepam (KlonoPIN) 0.25 mg DAILYWLUN PO Last administered on 07/06/17at 12:26 ; Start 07/06/17 at 12:00 Enoxaparin Sodium (Lovenox) 30 mg Q24H SQ ; Start 07/06/17 at 08:30; Stop at 08:40; Status DC Enoxaparin Sodium (Lovenox) 40 mg Q24H SQ Last administered on 07/06/17at 10:00; Start 07/06/17 at 08:30 Vancomycin HCl 1.75 gm/Sodium Chloride 500 ml @ 250 mls/hr 1X ONCE IV Last administered on 07/06/17at 08:48; Start 07/06/17 at 09:00; Stop 07/06/17 at 10:59; Status DC Vancomycin HCl (Vanco Per Pharmacy) 1 each PRN DAILY PRN MC SEE COMMENTS Last administered on 07/06/17at 16:48; Start 07/06/17 at 08:45 Vancomycin HCl 1 gm/Sodium Chloride 250 ml @ 250 mls/hr Q24H IV ; Start at 09:00 Vancomycin HCl 1 each 1X ONCE MC ; Start 07/08/17 at 08:30; Stop 07/08/17 at 08 :31 Active Scripts Active Reported Solu-Medrol 40 Mg Vial (Methylprednisolone Sod Succ/Pf) 40 Mg/1 Ml Vial 40 Mg IJ Q8HRS Levofloxacin-D5w 500 Mg/100 Ml (Levofloxacin/D5w) 500 Mg/100 Ml Piggyback 500 Mg IV DAILY Clonazepam 0.25 Mg Tab.rapdis 0.25 Mg PO DAILYWLUN Bupropion Xl (Bupropion Hcl) 150 Mg Tab.er.24h 150 Mg PO DAILY Piperacil-Tazobact 3.375 Gm Vl (Piperacillin Sodium/Tazobactam) 3.375 Gm Vial 3.375 Gm IV Q8HRS Montelukast Sodium Tablet (Montelukast Sodium) 10 Mg Tablet 10 Mg PO HS [place] Greaseless Cream (Methyl Salicylate/Menthol) 57 Gm Cream..g. 57 Gm TP PRN QID PRN Namenda (Memantine Hcl) 10 Mg Tablet 5 Mg PO DAILY Advanced Antacid Liquid (Mag Hydrox/Al Hydrox/Simeth) 355 Ml Oral.susp 355 Ml PO PRN BFRMEALHC PRN Duoneb 0.5-3(2.5) Mg/3 Ml (Albuterol/Ipratropium) 3 Ml Ampul.neb 3 Ml NEB QID Pulmicort (Budesonide) 0.5 Mg/2 Ml Ampul.neb 1 Vial NEB BID Culturelle (Lactobacillus Rhamnosus Gg) 1 Each Cap.sprink 1 Cap PO BID Acetaminophen 500 Mg Tablet 650 Mg PO TID Levothyroxine Sodium 137 Mcg Tablet 137 Mcg PO DAILY07 Metoprolol Tartrate 25 Mg Tablet 25 Mg PO BID Clonazepam 0.5 Mg Tablet 0.5 Mg PO BID Buspirone Hcl 10 Mg Tablet 10 Mg PO TID Furosemide 40 Mg Tablet 40 Mg PO DAILY Remeron (Mirtazapine) 15 Mg Tablet 15 Mg PO QHS Imodium A-D (Loperamide HCl) 2 Mg Capsule 2 Mg PO QID PRN Melatonin 3 Mg Tablet 6 Mg PO HS Klonopin (Clonazepam) 0.5 Mg Tablet 0.5 Mg PO PRN BID PRN [place] Saline Nasal Gel (Sodium Chloride/Aloe Vera) 14.1 Gm Gel..gram. 1 Brenda TP QID PRN Tylenol (Acetaminophen) 325 Mg Tablet 650 Mg PO Q4HRS PRN Milk Of Magnesia (Magnesium Hydroxide) 400 Mg/5 Ml Oral.susp 400 Mg PO DAILY PRN Clopidogrel (Clopidogrel Bisulfate) 75 Mg Tablet 75 Mg PO DAILYBFRSUP Albuterol Sulfate Conc Neb Soln (Albuterol Sulfate) 2.5 Mg/0.5 Ml Vial.neb 1 Vial NEB Q4HRS PRN Ferrous Sulfate 325 Mg Tablet 325 Mg PO DAILY I have reviewed the current psychotropics carefully including drug interactions. Risk benefit ratio favors no change other than as noted in my dictated progress note. Diagnosis: Problems: (1) Dementia in Alzheimer's disease with delusions (2) Dementia in Alzheimer's disease with depression (3) Dementia, vascular, with delusions (4) Dementia, vascular, with depression (5) Major depressive disorder, recurrent episode (6) Anxiety disorder CARY ALEX MD Jul 06, 2017 18:19
--- NOTE | 2017-07-06 18:30 | NUR ---
PT had hard stool in brief this am. When changing pt this evening pt said she feels like she needs to but cannot. PT had hard stools and had to be manually disimpacted. Leslie GREGORIO
[2017-07-06] MEDS ORDERED: MONTELUKAST 10 MG TABLET. PO SCH (21:00)
[2017-07-06] MEDS ORDERED: SENNOSIDES/DOCUSATE 8.6/50MG TABLET. PO ONE (21:00)
[2017-07-06] MEDS: MONTELUKAST 10 MG TABLET. PO SCH (21:25)
[2017-07-06] MEDS: MIRTAZAPINE 15 MG TABLET PO SCH (21:25)
[2017-07-07] VITALS (16 sets, daily range): BP systolic 115–147; BP diastolic 63–96
[2017-07-07] MEDS: IPRATRPIUM/ALBUTEROL 0.5/2.5MG 3 ML NEBU. NEB SCH ×3 (05:37→20:00)
[2017-07-07] MEDS: PIPERACILLIN/TAZO IV Push 3.375 GM VIAL. IVP SCH ×3 (06:22→21:41)
[2017-07-07] MEDS: LEVOTHYROXINE 137 MCG TABLET PO SCH (06:24)
[2017-07-07] MEDS: methylPREDNISolone SOD SUCC PF 40 MG/ML VIAL. IV SCH ×3 (06:24→21:41)
[2017-07-07 06:56] LABS: ALBUMIN 3.2 g/dL (3.4-5.0); ALBUMIN/GLOBULIN RATIO 0.6 (1.0-1.7); CALCIUM 8.8 mg/dL (8.5-10.1); CREATININE 1.2 mg/dL (0.6-1.0); GFR 45.8; MAGNESIUM 2.1 mg/dL (1.8-2.4); POTASSIUM 4.2 mmol/L (3.5-5.1); TOTAL BILIRUBIN 0.9 mg/dL (0.2-1.0); TOTAL PROTEIN 8.4 g/dL (6.4-8.2)
[2017-07-07 07:12] LABS: HEMATOCRIT 51.8 % (36.0-47.0); HEMOGLOBIN 16.1 g/dL (12.0-15.5); MEAN CORPUSCULAR HEMOGLOBIN 28 pg (25-35); MEAN CORPUSCULAR HGB CONC 31 g/dL (31-37); MEAN CORPUSCULAR VOLUME 89 fL (79-100); PLATELET COUNT 318 x10^3/uL (140-400); RED BLOOD COUNT 5.81 x10^6/uL (3.50-5.40); RED CELL DISTRIBUTION WIDTH 18.3 % (11.5-14.5); WHITE BLOOD COUNT 10.4 x10^3/uL (4.0-11.0)
[2017-07-07 07:32] LABS: % BANDS 1 % (0-9); % LYMPHS 15 % (24-48); % MONOS 4 % (0-10); % SEGS 80 % (35-66)
[2017-07-07] MEDS: FUROSEMIDE 40 MG TABLET PO SCH (07:56)
[2017-07-07] MEDS: clonazePAM 0.5 MG TABLET PO SCH ×3 (07:56→21:45)
[2017-07-07] MEDS: LACTOBACILLUS RHAMNOSUS GG 1 CAPSULE. PO SCH ×2 (07:56→21:41)
[2017-07-07] MEDS: buPROPion XL 150 MG TAB.ER.24H PO SCH (07:56)
[2017-07-07] MEDS: MEMANTINE 5 MG TABLET. PO SCH (07:57)
[2017-07-07] MEDS: METOPROLOL TART IMMED RELEASE 25 MG TABLET PO SCH ×2 (07:57→21:45)
[2017-07-07] MEDS: FERROUS SULFATE 325 MG TABLET. PO SCH (07:57)
[2017-07-07] MEDS: ENOXAPARIN 40 MG/0.4 ML DISP.SYRIN. SQ SCH (07:57)
[2017-07-07] MEDS: busPIRone 10 MG TABLET. PO SCH ×3 (07:57→21:45)
[2017-07-07] MEDS ORDERED: VANCOMYCIN 1 GM in IV NORMAL SALINE 250ML 250 ML IV SCH (09:00)
[2017-07-07 09:27] LABS: PLT ESTIMATE ADEQUATE (ADEQUATE)
[2017-07-07] MEDS: BUDESONIDE 0.5 MG/2 ML NEBU NEB SCH ×2 (10:53→21:01)
[2017-07-07] MEDS: DOCUSATE SODIUM 100 MG CAPSULE PO SCH (12:18)
--- NOTE | 2017-07-07 15:29 | NUR ---
PT continues to be very attention seeking. PT very upset because she is sorry and wants to go back to [facility]. PRN given. Pt continues to be reliant on face mask at 15L to maintain at O2 sat above 90%. Leslie GREGORIO
--- NOTE | 2017-07-07 15:52 | RAD ---
Exam: AP portable chest History: Follow-up pneumonia. Comparison: July 03, 2017. Findings: Cardiac silhouette appears within normal limits for size. No pneumothorax or pleural effusion is seen. There is accentuation of interstitial markings. There is mild improvement in patchy bilateral parenchymal densities. Impression: 1. Mild interval improvement in bilateral atelectasis versus airspace disease. 2. Interstitial thickening, could represent interstitial edema or fibrotic change. Electronically signed by: Fritz Vera MD (07/07/2017 3:48 PM) [place] [id number]
--- NOTE | 2017-07-07 18:45 | PDOC ---
Exam Note: Saeid Note: Please also refer to the separate dictated note~for this date of service dictated separately.~Patient seen individually. Discussed the patient with Nursing staff reviewed the chart.~Reviewed interim history and current functioning. Reviewed vital signs,~Labs/ Radiology~and current medications noted below. Continue current treatment with the changes noted in the dictated addendum note Assessment: Vital Signs: Vital Signs Date Time Temp Pulse Resp B/P (MAP) Pulse Ox O2 Delivery O2 Flow Rate FiO2 07/07/17 17:39 79 29 134/82 (99) 91 Venturi Mask 15.0 07/07/17 15:03 97.4 I&O Intake and Output 07/07/17 06:59 Intake Total 2510 ml Output Total 1501 ml Balance 1009 ml Intake Oral 1960 ml IV Total 550 ml Output Urine Total 1501 ml # Voids 1 Labs: Laboratory Tests Test 07/07/17 05:51 White Blood Count 10.4 x10^3/uL (4.0-11.0) Red Blood Count 5.81 x10^6/uL (3.50-5.40) H Hemoglobin 16.1 g/dL (12.0-15.5) H Hematocrit 51.8 % (36.0-47.0) H Mean Corpuscular Volume 89 fL (79-100) Mean Corpuscular Hemoglobin 28 pg (25-35) Mean Corpuscular Hemoglobin Concent 31 g/dL (31-37) Red Cell Distribution Width 18.3 % (11.5-14.5) H Platelet Count 318 x10^3/uL (140-400) Segmented Neutrophils % 80 % (35-66) H Band Neutrophils % 1 % (0-9) Lymphocytes % 15 % (24-48) L Monocytes % 4 % (0-10) Platelet Estimate Adequate (ADEQUATE) Large Platelets Occ Sodium Level 142 mmol/L (136-145) Potassium Level 4.2 mmol/L (3.5-5.1) Chloride Level 102 mmol/L (98-107) Carbon Dioxide Level 30 mmol/L (21-32) Anion Gap 10 (6-14) Blood Urea Nitrogen 23 mg/dL (7-20) H Creatinine 1.2 mg/dL (0.6-1.0) H Estimated GFR (Cockcroft-Gault) 45.8 BUN/Creatinine Ratio 19 (6-20) Glucose Level 144 mg/dL (70-99) H Calcium Level 8.8 mg/dL (8.5-10.1) Magnesium Level 2.1 mg/dL (1.8-2.4) Total Bilirubin 0.9 mg/dL (0.2-1.0) Aspartate Amino Transferase (AST) 34 U/L (15-37) Alanine Aminotransferase (ALT) 22 U/L (14-59) Alkaline Phosphatase 108 U/L (46-116) Total Protein 8.4 g/dL (6.4-8.2) H Albumin 3.2 g/dL (3.4-5.0) L Albumin/Globulin Ratio 0.6 (1.0-1.7) L Current Medications: Meds: Current Medications Piperacillin Sod/ Tazobactam Sod 3.375 gm/Sodium Chloride 50 ml @ 100 mls/hr Q8HRS IV ; Start 07/05/17 at 23:00; Status UNV Levofloxacin/ Dextrose 100 ml @ 100 mls/hr Q24H IV Last administered on at 06:22; Start 07/07/17 at 06:00 Methylprednisolone Sodium Succinate (SOLU-Medrol 40MG VIAL) 40 mg Q8HRS IV Last administered on 07/07/17at 15:22; Start 07/05/17 at 23:00 Albuterol/ Ipratropium (Duoneb) 3 ml RTQID NEB Last administered on 07/07/17at 10 :53; Start 07/06/17 at 08:00 Albuterol Sulfate (Ventolin) 2.5 mg PRN Q2HR PRN NEB SHORTNESS OF BREATH; Start 07/05/17 at 22:30 Montelukast Sodium (Singulair) 10 mg QHS PO Last administered on 07/06/17at 21:25 ; Start 07/05/17 at 23:00 Budesonide (Pulmicort) 0.5 mg RTBID NEB Last administered on 07/07/17at 10:53; Start 07/06/17 at 08:00 Piperacillin Sod/ Tazobactam Sod (Zosyn) 3.375 gm Q8HRS IVP Last administered on 07/07/17at 15:22; Start 07/05/17 at 23:00 Levofloxacin/ Dextrose 50 ml @ 50 mls/hr Q1H IV Last administered on 07/06/17at 05:45; Start 07/06/17 at 06:00; Stop 07/06/17 at 07:08; Status DC Acetaminophen (Tylenol) 650 mg PRN Q4HRS PRN PO MILD PAIN; Start 07/06/17 at 01: 15 Bupropion HCl (Wellbutrin Xl) 150 mg DAILY PO Last administered on 07/07/17 07: 56; Start 07/06/17 at 09:00 Buspirone HCl (Buspar) 10 mg TID PO Last administered on 07/07/17at 15:22; Start 07/06/17 at 09:00 Clonazepam (KlonoPIN) 0.5 mg BID PO Last administered on 07/07/17 07:56; Start 07/06/17 at 09:00 Clopidogrel Bisulfate (Plavix) 75 mg DAILYBFRSUP PO Last administered on at 17:58; Start 07/06/17 at 17:00 Ferrous Sulfate (Feosol) 325 mg DAILY PO Last administered on 07/07/17 07:57; Start 07/06/17 at 09:00 Furosemide (Lasix) 40 mg DAILY PO Last administered on 07/07/17 07:56; Start at 09:00 Lactobacillus Rhamnosus (Culturelle) 1 cap BID PO Last administered on at 07:56; Start 07/06/17 at 09:00 Levothyroxine Sodium (Synthroid) 137 mcg DAILY07 PO Last administered on at 06:24; Start 07/06/17 at 07:00 Loperamide HCl (Imodium) 2 mg PRN QID PRN PO DIARRHEA; Start 07/06/17 at 01:15 Magnesium Hydroxide (Milk Of Magnesia) 400 mg PRN DAILY PRN PO CONSTIPATION; Start 07/06/17 at 01:15 Memantine (Namenda) 5 mg DAILY PO Last administered on 07/07/17at 07:57; Start at 09:00 Metoprolol Tartrate (Lopressor) 25 mg BID PO Last administered on 07/07/17 07: 57; Start 07/06/17 at 09:00 Mirtazapine (Remeron) 15 mg QHS PO Last administered on 07/06/17at 21:25; Start 07/06/17 at 21:00 Montelukast Sodium (Singulair) 10 mg HS PO ; Start 07/06/17 at 21:00; Stop at 21:00; Status DC Sodium Chloride ([place] Saline Nasal) 1 brenda PRN QID PRN TP NASAL CONGESTION; Start 07/06/17 at 01:15 Multi-Ingredient Ointment (Analgesic [place]) 1 brenda PRN QID PRN TP MUSCLE PAIN; Start 07/06/17 at 02:15 Clonazepam (KlonoPIN) 0.25 mg DAILYWLUN PO Last administered on 07/07/17at 12:18 ; Start 07/06/17 at 12:00 Enoxaparin Sodium (Lovenox) 30 mg Q24H SQ ; Start 07/06/17 at 08:30; Stop at 08:40; Status DC Enoxaparin Sodium (Lovenox) 40 mg Q24H SQ Last administered on 07/07/17at 07:57; Start 07/06/17 at 08:30 Vancomycin HCl 1.75 gm/Sodium Chloride 500 ml @ 250 mls/hr 1X ONCE IV Last administered on 07/06/17at 08:48; Start 07/06/17 at 09:00; Stop 07/06/17 at 10:59; Status DC Vancomycin HCl (Vanco Per Pharmacy) 1 each PRN DAILY PRN MC SEE COMMENTS Last administered on 07/06/17at 16:48; Start 07/06/17 at 08:45 Vancomycin HCl 1 gm/Sodium Chloride 250 ml @ 250 mls/hr Q24H IV Last administered on 07/07/17at 07:58; Start 07/07/17 at 09:00 Vancomycin HCl 1 each 1X ONCE MC ; Start 07/08/17 at 08:30; Stop 07/08/17 at 08 :31 Senna/Docusate Sodium (Senna Plus) 2 tab 1X ONCE PO Last administered on at 21:25; Start 07/06/17 at 21:00; Stop 07/06/17 at 21:01; Status DC Docusate Sodium (Colace) 200 mg DAILY PO Last administered on 07/07/17at 12:18; Start 07/07/17 at 09:30 Olanzapine (ZyPREXA ZYDIS) 2.5 mg PRN Q6HRS PRN PO ANXIETY / AGITATION Last administered on 07/07/17at 15:22; Start 07/07/17 at 14:45 Active Scripts Active Reported Solu-Medrol 40 Mg Vial (Methylprednisolone Sod Succ/Pf) 40 Mg/1 Ml Vial 40 Mg IJ Q8HRS Levofloxacin-D5w 500 Mg/100 Ml (Levofloxacin/D5w) 500 Mg/100 Ml Piggyback 500 Mg IV DAILY Clonazepam 0.25 Mg Tab.rapdis 0.25 Mg PO DAILYWLUN Bupropion Xl (Bupropion Hcl) 150 Mg Tab.er.24h 150 Mg PO DAILY Piperacil-Tazobact 3.375 Gm Vl (Piperacillin Sodium/Tazobactam) 3.375 Gm Vial 3.375 Gm IV Q8HRS Montelukast Sodium Tablet (Montelukast Sodium) 10 Mg Tablet 10 Mg PO HS [place] Greaseless Cream (Methyl Salicylate/Menthol) 57 Gm Cream..g. 57 Gm TP PRN QID PRN Namenda (Memantine Hcl) 10 Mg Tablet 5 Mg PO DAILY Advanced Antacid Liquid (Mag Hydrox/Al Hydrox/Simeth) 355 Ml Oral.susp 355 Ml PO PRN BFRMEALHC PRN Duoneb 0.5-3(2.5) Mg/3 Ml (Albuterol/Ipratropium) 3 Ml Ampul.neb 3 Ml NEB QID Pulmicort (Budesonide) 0.5 Mg/2 Ml Ampul.neb 1 Vial NEB BID Culturelle (Lactobacillus Rhamnosus Gg) 1 Each Cap.sprink 1 Cap PO BID Acetaminophen 500 Mg Tablet 650 Mg PO TID Levothyroxine Sodium 137 Mcg Tablet 137 Mcg PO DAILY07 Metoprolol Tartrate 25 Mg Tablet 25 Mg PO BID Clonazepam 0.5 Mg Tablet 0.5 Mg PO BID Buspirone Hcl 10 Mg Tablet 10 Mg PO TID Furosemide 40 Mg Tablet 40 Mg PO DAILY Remeron (Mirtazapine) 15 Mg Tablet 15 Mg PO QHS Imodium A-D (Loperamide HCl) 2 Mg Capsule 2 Mg PO QID PRN Melatonin 3 Mg Tablet 6 Mg PO HS Klonopin (Clonazepam) 0.5 Mg Tablet 0.5 Mg PO PRN BID PRN [place] Saline Nasal Gel (Sodium Chloride/Aloe Vera) 14.1 Gm Gel..gram. 1 Brenda TP QID PRN Tylenol (Acetaminophen) 325 Mg Tablet 650 Mg PO Q4HRS PRN Milk Of Magnesia (Magnesium Hydroxide) 400 Mg/5 Ml Oral.susp 400 Mg PO DAILY PRN Clopidogrel (Clopidogrel Bisulfate) 75 Mg Tablet 75 Mg PO DAILYBFRSUP Albuterol Sulfate Conc Neb Soln (Albuterol Sulfate) 2.5 Mg/0.5 Ml Vial.neb 1 Vial NEB Q4HRS PRN Ferrous Sulfate 325 Mg Tablet 325 Mg PO DAILY I have reviewed the current psychotropics carefully including drug interactions. Risk benefit ratio favors no change other than as noted in my dictated progress note. Diagnosis: Problems: (1) Dementia in Alzheimer's disease with delusions (2) Dementia in Alzheimer's disease with depression (3) Dementia, vascular, with delusions (4) Dementia, vascular, with depression (5) Major depressive disorder, recurrent episode (6) Anxiety disorder CARY ALEX MD Jul 07, 2017 18:45
[2017-07-07] MEDS: CLOPIDOGREL BISULFATE 75 MG TABLET PO SCH (21:41)
[2017-07-07] MEDS: MONTELUKAST 10 MG TABLET. PO SCH (21:45)
[2017-07-07] MEDS: OLANZapine 2.5 MG TABLET PO PRN (21:46)
[2017-07-07] MEDS: MIRTAZAPINE 15 MG TABLET PO SCH (21:48)
[2017-07-08] VITALS (9 sets, daily range): BP systolic 110–140; BP diastolic 61–86
--- NOTE | 2017-07-08 03:45 | PN ---
DATE: 07/07/2017 CURRENT PROBLEMS: 1. Bilateral interstitial pneumonia. 2. Chronic hypoxic respiratory failure, continues with hypoxia. 3. Chronic obstructive pulmonary disease. 4. Chronic kidney disease stage 2. 5. Mild protein-calorie malnutrition. 6. Suicide attempt with electrocution and plastic bag over her head. 7. Severe depression and anxiety. 8. Functional quadriplegia - The patient basically does almost nothing for herself. SUBJECTIVE: pathology manager had a long discussion with her family regarding possible hospice. She has interstitial lung disease. This will not get better. She is requiring a large amount of oxygen. In spite of that, there has been no improvement in her oxygenation. This appears to be chronic. She wants to go back to [facility]. She has seen Dr. Jeffery also. Nursing attempts to get her to do anything for herself are pretty futile. OBJECTIVE: VITAL SIGNS: Blood pressure 123/84, respirations 20, pulse ox is 91% on 15 liters via Venturi mask, temperature 97.4. GENERAL: She is alert, answering questions appropriately. LUNGS: Clear essentially. CARDIOVASCULAR: Regular rhythm and rate. ABDOMEN: Soft, nontender. EXTREMITIES: Without edema. The patient did sit herself up when I requested that. Chest x-ray has not been overread and it does not appear to have improved and poor inspiratory effort. PLAN: Await the results of the chest x-ray. I believe that the hospice would be in her best interest. SARAH KING DO DR: NENA/trung JOB#: [id number] / [id number]
[2017-07-08] MEDS: IPRATRPIUM/ALBUTEROL 0.5/2.5MG 3 ML NEBU. NEB SCH ×4 (05:50→20:43)
[2017-07-08] MEDS: PIPERACILLIN/TAZO IV Push 3.375 GM VIAL. IVP SCH (05:59)
[2017-07-08] MEDS: LEVOTHYROXINE 137 MCG TABLET PO SCH (05:59)
[2017-07-08] MEDS: methylPREDNISolone SOD SUCC PF 40 MG/ML VIAL. IV SCH ×3 (06:01→21:01)
[2017-07-08 06:48] LABS: BASO % 0 % (0-3); EOS % 0 % (0-3); HEMATOCRIT 47.3 % (36.0-47.0); HEMOGLOBIN 15.4 g/dL (12.0-15.5); LYMPH # 1.3 x10^3/uL (1.0-4.8); LYMPH % 10 % (24-48); MEAN CORPUSCULAR HEMOGLOBIN 29 pg (25-35); MEAN CORPUSCULAR HGB CONC 33 g/dL (31-37); MEAN CORPUSCULAR VOLUME 88 fL (79-100); MONO # 0.6 x10^3/uL (0.0-1.1); MONO % 5 % (0-9); NEUT # 10.7 x10^3uL (1.8-7.7); NEUT % 85 % (31-73); PLATELET COUNT 286 x10^3/uL (140-400); RED BLOOD COUNT 5.37 x10^6/uL (3.50-5.40); RED CELL DISTRIBUTION WIDTH 17.3 % (11.5-14.5); WHITE BLOOD COUNT 12.7 x10^3/uL (4.0-11.0)
[2017-07-08 07:03] LABS: ALBUMIN 2.9 g/dL (3.4-5.0); ALBUMIN/GLOBULIN RATIO 0.6 (1.0-1.7); CALCIUM 8.5 mg/dL (8.5-10.1); CREATININE 1.3 mg/dL (0.6-1.0); GFR 41.8; POTASSIUM 3.8 mmol/L (3.5-5.1); TOTAL BILIRUBIN 0.9 mg/dL (0.2-1.0); TOTAL PROTEIN 7.6 g/dL (6.4-8.2)
--- NOTE | 2017-07-08 08:12 | PN ---
DATE: 07/06/2017 PSYCHIATRIC PROGRESS NOTE This late entry of 07/06/2017 covers elements not covered in my initial note for 07/06/2017. SUBJECTIVE: I have been asked to follow the patient in the ICU bed 2 from a psychiatric standpoint by Dr. Tompkins after she was transferred from [facility] to the ICU consequent to pneumonia, inability to sustain her oxygen sats despite 6-8 liters of per facemask. Discussed with nursing staff, reviewed the chart. The patient has been anxious, restless, constantly wanting to call people, wanting to call her son. Her code status is being changed to DNR and discussions have been reportedly held regarding hospice care post-discharge. She refuses to get out of bed, refuses to do things for herself even though she can. She remains on Klonopin down to 0.5 mg twice a day and BuSpar along with Remeron. BuSpar is 10 mg 3 times a day and Ativan p.r.n., which we will go ahead and change to Zyprexa p.r.n. since former is ineffective. MENTAL STATUS EXAM: Oriented to herself and situation. Speech coherent, abstraction fair, computation impaired, language function intact. Mood and affect remains labile, depressed. IMPRESSION: Major depressive disorder, recurrent with no active suicidal ideation, but the recent past history of trying to electrocute herself and then putting a plastic bag over her face in a suicide gesture at the assisted; anxiety disorder, unspecified; major neurocognitive disorder, early vascular with depression. Rest unchanged. PLAN: From a psychiatric standpoint, continue current psychotropics. Change the benzodiazepines p.r.n. to Zyprexa p.r.n. Rest unchanged per initial note. This note covers elements not covered in my initial note of 07/06/2017. CARY ALEX MD DR: ELIZABETH/trung JOB#: [id number] / [id number]
[2017-07-08] MEDS: METOPROLOL TART IMMED RELEASE 25 MG TABLET PO SCH ×2 (08:50→21:01)
[2017-07-08] MEDS: clonazePAM 0.5 MG TABLET PO SCH ×3 (08:50→21:00)
[2017-07-08] MEDS: FERROUS SULFATE 325 MG TABLET. PO SCH (08:50)
[2017-07-08] MEDS: FUROSEMIDE 40 MG TABLET PO SCH (08:50)
[2017-07-08] MEDS: LACTOBACILLUS RHAMNOSUS GG 1 CAPSULE. PO SCH ×2 (08:50→21:00)
[2017-07-08] MEDS: busPIRone 10 MG TABLET. PO SCH ×3 (08:50→20:59)
[2017-07-08] MEDS: ENOXAPARIN 40 MG/0.4 ML DISP.SYRIN. SQ SCH (08:50)
[2017-07-08] MEDS: buPROPion XL 150 MG TAB.ER.24H PO SCH (08:51)
[2017-07-08] MEDS: DOCUSATE SODIUM 100 MG CAPSULE PO SCH (08:51)
[2017-07-08] MEDS: MEMANTINE 5 MG TABLET. PO SCH (08:51)
[2017-07-08] MEDS: BUDESONIDE 0.5 MG/2 ML NEBU NEB SCH ×3 (08:58→20:43)
[2017-07-08] MEDS: DOXYCYCLINE HYCLATE 100 MG TABLET PO SCH ×2 (08:58→21:01)
--- NOTE | 2017-07-08 09:25 | NUR ---
Pt alert and oriented this am upon assessment. Pt currently denies an SI thoughts or ideas to attempt. SI room risk assessment completed per flowsheet. Pt has her call light and telephone with her. Pt is also on continuous oxygen. Pt is within constant eye site of nurse and curtain is pulled. Pt is able to use call light for help. Will continue to monitor closely.
--- NOTE | 2017-07-08 13:24 | NUR ---
Throughout the shift, pt's o2 sat has been in the upper 80's, sometimes lower. Pt has had venturi mask on at 15L with those same o2 saturations. Pt on 6L via NC at meal time; pt left on NC and o2 sat dropped to high 70's. Throughout the shift, pt denies any shortness of breath, dizziness, labored breathing, or any other symptom of hypoxia. Pt's lips appear cyanotic; pt states they are always that color because she has lupus. Pt has eaten both meals well independently. Pt does not appear to be in any respiratory distress at this time. Will continue to monitor.
[2017-07-08] MEDS: CLOPIDOGREL BISULFATE 75 MG TABLET PO SCH (16:04)
--- NOTE | 2017-07-08 17:46 | PDOC ---
Exam Note: Saeid Note: Please also refer to the separate dictated note~for this date of service dictated separately.~Patient seen individually. Discussed the patient with Nursing staff reviewed the chart.~Reviewed interim history and current functioning. Reviewed vital signs,~Labs/ Radiology~and current medications noted below. Continue current treatment with the changes noted in the dictated addendum note Assessment: Vital Signs: Vital Signs Date Time Temp Pulse Resp B/P (MAP) Pulse Ox O2 Delivery O2 Flow Rate FiO2 07/08/17 16:14 73 25 110/70 (83) 82 Nasal Cannula 6.0 07/07/17 19:35 98.0 I&O Intake and Output 07/08/17 07:00 Intake Total 1710 ml Output Total 1150 ml Balance 560 ml Intake Oral 1260 ml IV Total 450 ml Output Urine Total 1150 ml # Voids 7 Labs: Laboratory Tests Test 07/08/17 05:46 White Blood Count 12.7 x10^3/uL (4.0-11.0) H Red Blood Count 5.37 x10^6/uL (3.50-5.40) Hemoglobin 15.4 g/dL (12.0-15.5) Hematocrit 47.3 % (36.0-47.0) H Mean Corpuscular Volume 88 fL (79-100) Mean Corpuscular Hemoglobin 29 pg (25-35) Mean Corpuscular Hemoglobin Concent 33 g/dL (31-37) Red Cell Distribution Width 17.3 % (11.5-14.5) H Platelet Count 286 x10^3/uL (140-400) Neutrophils (%) (Auto) 85 % (31-73) H Lymphocytes (%) (Auto) 10 % (24-48) L Monocytes (%) (Auto) 5 % (0-9) Eosinophils (%) (Auto) 0 % (0-3) Basophils (%) (Auto) 0 % (0-3) Neutrophils # (Auto) 10.7 x10^3uL (1.8-7.7) H Lymphocytes # (Auto) 1.3 x10^3/uL (1.0-4.8) Monocytes # (Auto) 0.6 x10^3/uL (0.0-1.1) Eosinophils # (Auto) 0.0 x10^3/uL (0.0-0.7) Basophils # (Auto) 0.0 x10^3/uL (0.0-0.2) Sodium Level 143 mmol/L (136-145) Potassium Level 3.8 mmol/L (3.5-5.1) Chloride Level 103 mmol/L (98-107) Carbon Dioxide Level 31 mmol/L (21-32) Anion Gap 9 (6-14) Blood Urea Nitrogen 30 mg/dL (7-20) H Creatinine 1.3 mg/dL (0.6-1.0) H Estimated GFR (Cockcroft-Gault) 41.8 BUN/Creatinine Ratio 23 (6-20) H Glucose Level 143 mg/dL (70-99) H Calcium Level 8.5 mg/dL (8.5-10.1) Magnesium Level 2.0 mg/dL (1.8-2.4) Total Bilirubin 0.9 mg/dL (0.2-1.0) Aspartate Amino Transferase (AST) 38 U/L (15-37) H Alanine Aminotransferase (ALT) 31 U/L (14-59) Alkaline Phosphatase 92 U/L (46-116) Total Protein 7.6 g/dL (6.4-8.2) Albumin 2.9 g/dL (3.4-5.0) L Albumin/Globulin Ratio 0.6 (1.0-1.7) L Current Medications: Meds: Current Medications Piperacillin Sod/ Tazobactam Sod 3.375 gm/Sodium Chloride 50 ml @ 100 mls/hr Q8HRS IV ; Start 07/05/17 at 23:00; Status UNV Levofloxacin/ Dextrose 100 ml @ 100 mls/hr Q24H IV Last administered on at 05:59; Start 07/07/17 at 06:00; Stop 07/08/17 at 08:34; Status DC Methylprednisolone Sodium Succinate (SOLU-Medrol 40MG VIAL) 40 mg Q8HRS IV Last administered on 07/08/17at 06:01; Start 07/05/17 at 23:00; Stop 07/08/17 at 08:34; Status DC Albuterol/ Ipratropium (Duoneb) 3 ml RTQID NEB Last administered on 07/08/17at 15:45; Start 07/06/17 at 08:00 Albuterol Sulfate (Ventolin) 2.5 mg PRN Q2HR PRN NEB SHORTNESS OF BREATH; Start 07/05/17 at 22:30 Montelukast Sodium (Singulair) 10 mg QHS PO Last administered on 07/07/17at 21:45 ; Start 07/05/17 at 23:00 Budesonide (Pulmicort) 0.5 mg RTBID NEB Last administered on 07/08/17at 09:24; Start 07/06/17 at 08:00 Piperacillin Sod/ Tazobactam Sod (Zosyn) 3.375 gm Q8HRS IVP Last administered on 07/08/17 05:59; Start 07/05/17 at 23:00; Stop 07/08/17 at 08:34; Status DC Levofloxacin/ Dextrose 50 ml @ 50 mls/hr Q1H IV Last administered on 07/06/17at 05:45; Start 07/06/17 at 06:00; Stop 07/06/17 at 07:08; Status DC Acetaminophen (Tylenol) 650 mg PRN Q4HRS PRN PO MILD PAIN; Start 07/06/17 at 01: 15 Bupropion HCl (Wellbutrin Xl) 150 mg DAILY PO Last administered on 07/08/17 08 :51; Start 07/06/17 at 09:00 Buspirone HCl (Buspar) 10 mg TID PO Last administered on 07/08/17 13:06; Start 07/06/17 at 09:00 Clonazepam (KlonoPIN) 0.5 mg BID PO Last administered on 07/08/17at 08:50; Start 07/06/17 at 09:00 Clopidogrel Bisulfate (Plavix) 75 mg DAILYBFRSUP PO Last administered on at 16:04; Start 07/06/17 at 17:00 Ferrous Sulfate (Feosol) 325 mg DAILY PO Last administered on 07/08/17 08:50; Start 07/06/17 at 09:00 Furosemide (Lasix) 40 mg DAILY PO Last administered on 07/08/17 08:50; Start 07/06/17 at 09:00 Lactobacillus Rhamnosus (Culturelle) 1 cap BID PO Last administered on at 08:50; Start 07/06/17 at 09:00 Levothyroxine Sodium (Synthroid) 137 mcg DAILY07 PO Last administered on at 05:59; Start 07/06/17 at 07:00 Loperamide HCl (Imodium) 2 mg PRN QID PRN PO DIARRHEA; Start 07/06/17 at 01:15 Magnesium Hydroxide (Milk Of Magnesia) 400 mg PRN DAILY PRN PO CONSTIPATION; Start 07/06/17 at 01:15 Memantine (Namenda) 5 mg DAILY PO Last administered on 07/08/17at 08:51; Start 07/06/17 at 09:00 Metoprolol Tartrate (Lopressor) 25 mg BID PO Last administered on 07/08/17at 08: 50; Start 07/06/17 at 09:00 Mirtazapine (Remeron) 15 mg QHS PO Last administered on 07/07/17at 21:48; Start 07/06/17 at 21:00 Montelukast Sodium (Singulair) 10 mg HS PO ; Start 07/06/17 at 21:00; Stop at 21:00; Status DC Sodium Chloride ([place] Saline Nasal) 1 brenda PRN QID PRN TP NASAL CONGESTION; Start 07/06/17 at 01:15 Multi-Ingredient Ointment (Analgesic [place]) 1 brenda PRN QID PRN TP MUSCLE PAIN; Start 07/06/17 at 02:15 Clonazepam (KlonoPIN) 0.25 mg DAILYWLUN PO Last administered on 07/08/17at 13:06 ; Start 07/06/17 at 12:00 Enoxaparin Sodium (Lovenox) 30 mg Q24H SQ ; Start 07/06/17 at 08:30; Stop at 08:40; Status DC Enoxaparin Sodium (Lovenox) 40 mg Q24H SQ Last administered on 07/08/17at 08:50 ; Start 07/06/17 at 08:30 Vancomycin HCl 1.75 gm/Sodium Chloride 500 ml @ 250 mls/hr 1X ONCE IV Last administered on 07/06/17at 08:48; Start 07/06/17 at 09:00; Stop 07/06/17 at 10:59; Status DC Vancomycin HCl (Vanco Per Pharmacy) 1 each PRN DAILY PRN MC SEE COMMENTS Last administered on 07/06/17at 16:48; Start 07/06/17 at 08:45; Stop 07/08/17 at 10:48; Status DC Vancomycin HCl 1 gm/Sodium Chloride 250 ml @ 250 mls/hr Q24H IV Last administered on 07/07/17at 07:58; Start 07/07/17 at 09:00; Stop 07/08/17 at 08:34; Status DC Vancomycin HCl 1 each 1X ONCE MC Last administered on 07/08/17at 08:59; Start 07/08/17 at 08:30; Stop 07/08/17 at 08:31; Status DC Senna/Docusate Sodium (Senna Plus) 2 tab 1X ONCE PO Last administered on at 21:25; Start 07/06/17 at 21:00; Stop 07/06/17 at 21:01; Status DC Docusate Sodium (Colace) 200 mg DAILY PO Last administered on 07/08/17at 08:51; Start 07/07/17 at 09:30 Olanzapine (ZyPREXA ZYDIS) 2.5 mg PRN Q6HRS PRN PO ANXIETY / AGITATION Last administered on 07/07/17at 15:22; Start 07/07/17 at 14:45 Olanzapine (ZyPREXA) 2.5 mg PRN Q2HR PRN PO DELIRIUM Last administered on at 21:46; Start 07/07/17 at 18:45 Methylprednisolone Sodium Succinate (SOLU-Medrol 40MG VIAL) 20 mg Q8HRS IV Last administered on 07/08/17at 13:06; Start 07/08/17 at 14:00 Doxycycline Hyclate (Vibra-Tab) 100 mg BID PO Last administered on 07/08/17at 08 :58; Start 07/08/17 at 09:00 Active Scripts Active Reported Solu-Medrol 40 Mg Vial (Methylprednisolone Sod Succ/Pf) 40 Mg/1 Ml Vial 40 Mg IJ Q8HRS Levofloxacin-D5w 500 Mg/100 Ml (Levofloxacin/D5w) 500 Mg/100 Ml Piggyback 500 Mg IV DAILY Clonazepam 0.25 Mg Tab.rapdis 0.25 Mg PO DAILYWLUN Bupropion Xl (Bupropion Hcl) 150 Mg Tab.er.24h 150 Mg PO DAILY Piperacil-Tazobact 3.375 Gm Vl (Piperacillin Sodium/Tazobactam) 3.375 Gm Vial 3.375 Gm IV Q8HRS Montelukast Sodium Tablet (Montelukast Sodium) 10 Mg Tablet 10 Mg PO HS [place] Greaseless Cream (Methyl Salicylate/Menthol) 57 Gm Cream..g. 57 Gm TP PRN QID PRN Namenda (Memantine Hcl) 10 Mg Tablet 5 Mg PO DAILY Advanced Antacid Liquid (Mag Hydrox/Al Hydrox/Simeth) 355 Ml Oral.susp 355 Ml PO PRN BFRMEALHC PRN Duoneb 0.5-3(2.5) Mg/3 Ml (Albuterol/Ipratropium) 3 Ml Ampul.neb 3 Ml NEB QID Pulmicort (Budesonide) 0.5 Mg/2 Ml Ampul.neb 1 Vial NEB BID Culturelle (Lactobacillus Rhamnosus Gg) 1 Each Cap.sprink 1 Cap PO BID Acetaminophen 500 Mg Tablet 650 Mg PO TID Levothyroxine Sodium 137 Mcg Tablet 137 Mcg PO DAILY07 Metoprolol Tartrate 25 Mg Tablet 25 Mg PO BID Clonazepam 0.5 Mg Tablet 0.5 Mg PO BID Buspirone Hcl 10 Mg Tablet 10 Mg PO TID Furosemide 40 Mg Tablet 40 Mg PO DAILY Remeron (Mirtazapine) 15 Mg Tablet 15 Mg PO QHS Imodium A-D (Loperamide HCl) 2 Mg Capsule 2 Mg PO QID PRN Melatonin 3 Mg Tablet 6 Mg PO HS Klonopin (Clonazepam) 0.5 Mg Tablet 0.5 Mg PO PRN BID PRN [place] Saline Nasal Gel (Sodium Chloride/Aloe Vera) 14.1 Gm Gel..gram. 1 Brenda TP QID PRN Tylenol (Acetaminophen) 325 Mg Tablet 650 Mg PO Q4HRS PRN Milk Of Magnesia (Magnesium Hydroxide) 400 Mg/5 Ml Oral.susp 400 Mg PO DAILY PRN Clopidogrel (Clopidogrel Bisulfate) 75 Mg Tablet 75 Mg PO DAILYBFRSUP Albuterol Sulfate Conc Neb Soln (Albuterol Sulfate) 2.5 Mg/0.5 Ml Vial.neb 1 Vial NEB Q4HRS PRN Ferrous Sulfate 325 Mg Tablet 325 Mg PO DAILY I have reviewed the current psychotropics carefully including drug interactions. Risk benefit ratio favors no change other than as noted in my dictated progress note. Diagnosis: Problems: (1) Dementia in Alzheimer's disease with delusions (2) Dementia in Alzheimer's disease with depression (3) Dementia, vascular, with delusions (4) Dementia, vascular, with depression (5) Anxiety disorder (6) Major depressive disorder, recurrent episode CARY ALEX MD Jul 08, 2017 17:46
[2017-07-08] MEDS: MIRTAZAPINE 15 MG TABLET PO SCH (21:01)
[2017-07-08] MEDS: MONTELUKAST 10 MG TABLET. PO SCH (21:01)
[2017-07-08] MEDS: OLANZapine 2.5 MG TABLET PO PRN (21:01)
--- NOTE | 2017-07-09 02:30 | PN ---
DATE: 07/07/2017 PSYCHIATRIC PROGRESS NOTE This late entry date of service 07/07/2017 covers elements not covered in my initial note 07/07/2017. SUBJECTIVE: I met with the patient in the evening of 07/07/2017 in ICU bed 2, discussed with nursing staff. Per nursing report, the patient remains somewhat anxious, restless, frequently appears helpless, asking nursing staff to do much for her; but the Zyprexa seems to have helped with her mood lability much better than the benzodiazepines. She is still on high amount of oxygen per facial mask to maintain her O2 sats. Complains of being tired. MENTAL STATUS EXAM: Oriented to herself and situation. Speech is coherent, abstraction fair, computation impaired, short term memory is impaired. Mood and affect remain somewhat anxious, labile. LABORATORIES: Reviewed. IMPRESSION: Unchanged from initial note. Major depressive disorder, recurrent. No active suicidal ideation, though she has a past history of trying to electrocute herself and then putting up a plastic bag over her face in a suicide gesture, at the long-term; anxiety disorder, unspecified; major neurocognitive disorder, early vascular with depression. Rest unchanged. PLAN: I have reviewed the current psychotropics. We will continue for now. Adjust further as clinically indicated. CARY ALEX MD DR: ELIZABETH/trung JOB#: [id number] / [id number]
[2017-07-09 05:00] VITALS: BP 153/69
[2017-07-09] MEDS: IPRATRPIUM/ALBUTEROL 0.5/2.5MG 3 ML NEBU. NEB SCH ×4 (05:39→21:25)
[2017-07-09] MEDS: LEVOTHYROXINE 137 MCG TABLET PO SCH (05:41)
[2017-07-09] MEDS: methylPREDNISolone SOD SUCC PF 40 MG/ML VIAL. IV SCH ×2 (05:42→17:55)
[2017-07-09 06:36] LABS: HEMATOCRIT 48.3 % (36.0-47.0); HEMOGLOBIN 15.9 g/dL (12.0-15.5); RED BLOOD COUNT 5.5 x10^6/uL (3.50-5.40); RED CELL DISTRIBUTION WIDTH 17.2 % (11.5-14.5); WHITE BLOOD COUNT 9.8 x10^3/uL (4.0-11.0)
[2017-07-09 06:49] LABS: ALBUMIN 2.9 g/dL (3.4-5.0); ALBUMIN/GLOBULIN RATIO 0.6 (1.0-1.7); CALCIUM 8.4 mg/dL (8.5-10.1); CREATININE 1.2 mg/dL (0.6-1.0); GFR 45.8; POTASSIUM 3.7 mmol/L (3.5-5.1); TOTAL BILIRUBIN 0.9 mg/dL (0.2-1.0); TOTAL PROTEIN 7.5 g/dL (6.4-8.2)
[2017-07-09 07:35] VITALS: BP 133/77
[2017-07-09] MEDS: clonazePAM 0.5 MG TABLET PO SCH ×3 (07:44→21:22)
[2017-07-09] MEDS: ENOXAPARIN 40 MG/0.4 ML DISP.SYRIN. SQ SCH (07:44)
[2017-07-09] MEDS: DOCUSATE SODIUM 100 MG CAPSULE PO SCH (07:44)
[2017-07-09] MEDS: LACTOBACILLUS RHAMNOSUS GG 1 CAPSULE. PO SCH ×2 (07:44→21:22)
[2017-07-09] MEDS: buPROPion XL 150 MG TAB.ER.24H PO SCH (07:45)
[2017-07-09] MEDS: FUROSEMIDE 40 MG TABLET PO SCH (07:45)
[2017-07-09] MEDS: METOPROLOL TART IMMED RELEASE 25 MG TABLET PO SCH ×2 (07:45→21:22)
[2017-07-09] MEDS: busPIRone 10 MG TABLET. PO SCH ×3 (07:45→21:22)
[2017-07-09] MEDS: DOXYCYCLINE HYCLATE 100 MG TABLET PO SCH ×2 (07:45→21:22)
[2017-07-09] MEDS: FERROUS SULFATE 325 MG TABLET. PO SCH (07:45)
[2017-07-09] MEDS: MEMANTINE 5 MG TABLET. PO SCH (07:45)
--- NOTE | 2017-07-09 08:02 | NUR ---
Pt is feeling better, pt is able to verbalize understanding of poc. Leslie GREGORIO
--- NOTE | 2017-07-09 09:19 | PDOC2 ---
CONSULT Date of Admission DATE: 07/09/17 TIME: 09:01 Reason for Consult: afib History of Present Illness Ms Yanez is a 61 year old female initially seen with a mildly elevated troponin on 07/04/17, that was found during a screen for admission to [facility] for SI/ SA. She was transferred to [facility] where she developed hypoxia and was noted to have pneumonia. Yesterday consult was called for new onset atrial fibrillation. Currently she is in sinus rhythm. She denies chest pain, has some dyspnea, no palpitations. Past Medical History Hypothyroidism Dementia Anxiety Gastroesophageal reflux disease Anemia Pneumonia COPD SI/SA Past Surgical History No pertinent history Family History No history of premature coronary artery disease Social History Patient quit smoking and denied any alcohol or drug abuse. She resides in a half-way. Current Medications Current Medications Piperacillin Sod/ Tazobactam Sod 3.375 gm/Sodium Chloride 50 ml @ 100 mls/hr Q8HRS IV ; Start 07/05/17 at 23:00; Status UNV Levofloxacin/ Dextrose 100 ml @ 100 mls/hr Q24H IV Last administered on at 05:59; Start 07/07/17 at 06:00; Stop 07/08/17 at 08:34; Status DC Methylprednisolone Sodium Succinate (SOLU-Medrol 40MG VIAL) 40 mg Q8HRS IV Last administered on 07/08/17at 06:01; Start 07/05/17 at 23:00; Stop 07/08/17 at 08:34; Status DC Albuterol/ Ipratropium (Duoneb) 3 ml RTQID NEB Last administered on 07/09/17at 05:39; Start 07/06/17 at 08:00 Albuterol Sulfate (Ventolin) 2.5 mg PRN Q2HR PRN NEB SHORTNESS OF BREATH; Start 07/05/17 at 22:30 Montelukast Sodium (Singulair) 10 mg QHS PO Last administered on 07/08/17at 21: 01; Start 07/05/17 at 23:00 Budesonide (Pulmicort) 0.5 mg RTBID NEB Last administered on 07/08/17at 20:43; Start 07/06/17 at 08:00 Piperacillin Sod/ Tazobactam Sod (Zosyn) 3.375 gm Q8HRS IVP Last administered on 07/08/17at 05:59; Start 07/05/17 at 23:00; Stop 07/08/17 at 08:34; Status DC Levofloxacin/ Dextrose 50 ml @ 50 mls/hr Q1H IV Last administered on 07/06/17at 05:45; Start 07/06/17 at 06:00; Stop 07/06/17 at 07:08; Status DC Acetaminophen (Tylenol) 650 mg PRN Q4HRS PRN PO MILD PAIN; Start 07/06/17 at 01: 15 Bupropion HCl (Wellbutrin Xl) 150 mg DAILY PO Last administered on 07/09/17 07 :45; Start 07/06/17 at 09:00 Buspirone HCl (Buspar) 10 mg TID PO Last administered on 07/09/17 07:45; Start 07/06/17 at 09:00 Clonazepam (KlonoPIN) 0.5 mg BID PO Last administered on 07/09/17at 07:44; Start 07/06/17 at 09:00 Clopidogrel Bisulfate (Plavix) 75 mg DAILYBFRSUP PO Last administered on at 16:04; Start 07/06/17 at 17:00 Ferrous Sulfate (Feosol) 325 mg DAILY PO Last administered on 07/09/17at 07:45; Start 07/06/17 at 09:00 Furosemide (Lasix) 40 mg DAILY PO Last administered on 07/09/17 07:45; Start 07/06/17 at 09:00 Lactobacillus Rhamnosus (Culturelle) 1 cap BID PO Last administered on at 07:44; Start 07/06/17 at 09:00 Levothyroxine Sodium (Synthroid) 137 mcg DAILY07 PO Last administered on at 05:41; Start 07/06/17 at 07:00 Loperamide HCl (Imodium) 2 mg PRN QID PRN PO DIARRHEA; Start 07/06/17 at 01:15 Magnesium Hydroxide (Milk Of Magnesia) 400 mg PRN DAILY PRN PO CONSTIPATION; Start 07/06/17 at 01:15 Memantine (Namenda) 5 mg DAILY PO Last administered on 07/09/17at 07:45; Start 07/06/17 at 09:00 Metoprolol Tartrate (Lopressor) 25 mg BID PO Last administered on 07/09/17at 07: 45; Start 07/06/17 at 09:00 Mirtazapine (Remeron) 15 mg QHS PO Last administered on 07/08/17at 21:01; Start 07/06/17 at 21:00 Montelukast Sodium (Singulair) 10 mg HS PO ; Start 07/06/17 at 21:00; Stop at 21:00; Status DC Sodium Chloride (Rhodes Saline Nasal) 1 brenda PRN QID PRN TP NASAL CONGESTION; Start 07/06/17 at 01:15 Multi-Ingredient Ointment (Analgesic [place]ne) 1 brenda PRN QID PRN TP MUSCLE PAIN; Start 07/06/17 at 02:15 Clonazepam (KlonoPIN) 0.25 mg DAILYWLUN PO Last administered on 07/08/17at 13:06 ; Start 07/06/17 at 12:00 Enoxaparin Sodium (Lovenox) 30 mg Q24H SQ ; Start 07/06/17 at 08:30; Stop at 08:40; Status DC Enoxaparin Sodium (Lovenox) 40 mg Q24H SQ Last administered on 07/09/17at 07:44 ; Start 07/06/17 at 08:30 Vancomycin HCl 1.75 gm/Sodium Chloride 500 ml @ 250 mls/hr 1X ONCE IV Last administered on 07/06/17at 08:48; Start 07/06/17 at 09:00; Stop 07/06/17 at 10:59; Status DC Vancomycin HCl (Vanco Per Pharmacy) 1 each PRN DAILY PRN MC SEE COMMENTS Last administered on 07/06/17at 16:48; Start 07/06/17 at 08:45; Stop 07/08/17 at 10:48; Status DC Vancomycin HCl 1 gm/Sodium Chloride 250 ml @ 250 mls/hr Q24H IV Last administered on 07/07/17at 07:58; Start 07/07/17 at 09:00; Stop 07/08/17 at 08:34; Status DC Vancomycin HCl 1 each 1X ONCE MC Last administered on 07/08/17at 08:59; Start 07/08/17 at 08:30; Stop 07/08/17 at 08:31; Status DC Senna/Docusate Sodium (Senna Plus) 2 tab 1X ONCE PO Last administered on at 21:25; Start 07/06/17 at 21:00; Stop 07/06/17 at 21:01; Status DC Docusate Sodium (Colace) 200 mg DAILY PO Last administered on 07/09/17at 07:44; Start 07/07/17 at 09:30 Olanzapine (ZyPREXA ZYDIS) 2.5 mg PRN Q6HRS PRN PO ANXIETY / AGITATION Last administered on 07/07/17at 15:22; Start 07/07/17 at 14:45 Olanzapine (ZyPREXA) 2.5 mg PRN Q2HR PRN PO DELIRIUM Last administered on at 21:01; Start 07/07/17 at 18:45 Methylprednisolone Sodium Succinate (SOLU-Medrol 40MG VIAL) 20 mg Q8HRS IV Last administered on 07/09/17at 05:42; Start 07/08/17 at 14:00 Doxycycline Hyclate (Vibra-Tab) 100 mg BID PO Last administered on 07/09/17at 07 :45; Start 07/08/17 at 09:00 Active Scripts Active Reported Solu-Medrol 40 Mg Vial (Methylprednisolone Sod Succ/Pf) 40 Mg/1 Ml Vial 40 Mg IJ Q8HRS Levofloxacin-D5w 500 Mg/100 Ml (Levofloxacin/D5w) 500 Mg/100 Ml Piggyback 500 Mg IV DAILY Clonazepam 0.25 Mg Tab.rapdis 0.25 Mg PO DAILYWLUN Bupropion Xl (Bupropion Hcl) 150 Mg Tab.er.24h 150 Mg PO DAILY Piperacil-Tazobact 3.375 Gm Vl (Piperacillin Sodium/Tazobactam) 3.375 Gm Vial 3.375 Gm IV Q8HRS Montelukast Sodium Tablet (Montelukast Sodium) 10 Mg Tablet 10 Mg PO HS Bengay Greaseless Cream (Methyl Salicylate/Menthol) 57 Gm Cream..g. 57 Gm TP PRN QID PRN Namenda (Memantine Hcl) 10 Mg Tablet 5 Mg PO DAILY Advanced Antacid Liquid (Mag Hydrox/Al Hydrox/Simeth) 355 Ml Oral.susp 355 Ml PO PRN BFRMEALHC PRN Duoneb 0.5-3(2.5) Mg/3 Ml (Albuterol/Ipratropium) 3 Ml Ampul.neb 3 Ml NEB QID Pulmicort (Budesonide) 0.5 Mg/2 Ml Ampul.neb 1 Vial NEB BID Culturelle (Lactobacillus Rhamnosus Gg) 1 Each Cap.sprink 1 Cap PO BID Acetaminophen 500 Mg Tablet 650 Mg PO TID Levothyroxine Sodium 137 Mcg Tablet 137 Mcg PO DAILY07 Metoprolol Tartrate 25 Mg Tablet 25 Mg PO BID Clonazepam 0.5 Mg Tablet 0.5 Mg PO BID Buspirone Hcl 10 Mg Tablet 10 Mg PO TID Furosemide 40 Mg Tablet 40 Mg PO DAILY Remeron (Mirtazapine) 15 Mg Tablet 15 Mg PO QHS Imodium A-D (Loperamide HCl) 2 Mg Capsule 2 Mg PO QID PRN Melatonin 3 Mg Tablet 6 Mg PO HS Klonopin (Clonazepam) 0.5 Mg Tablet 0.5 Mg PO PRN BID PRN Rhodes Saline Nasal Gel (Sodium Chloride/Aloe Vera) 14.1 Gm Gel..gram. 1 Brenda TP QID PRN Tylenol (Acetaminophen) 325 Mg Tablet 650 Mg PO Q4HRS PRN Milk Of Magnesia (Magnesium Hydroxide) 400 Mg/5 Ml Oral.susp 400 Mg PO DAILY PRN Clopidogrel (Clopidogrel Bisulfate) 75 Mg Tablet 75 Mg PO DAILYBFRSUP Albuterol Sulfate Conc Neb Soln (Albuterol Sulfate) 2.5 Mg/0.5 Ml Vial.neb 1 Vial NEB Q4HRS PRN Ferrous Sulfate 325 Mg Tablet 325 Mg PO DAILY Allergies: Coded Allergies: azithromycin (Verified Allergy, Intermediate, 07/07/17) butorphanol (Verified Allergy, Intermediate, 07/07/17) dexlansoprazole (Verified Allergy, Intermediate, 07/07/17) meperidine (Verified Allergy, Intermediate, 07/07/17) terfenadine (Verified Allergy, Intermediate, 07/07/17) I S O L A T I O N *CONTACT* (Verified Allergy, Unknown, 07/06/17) +MRSA nares 07/04/2017 Review of System as per HPI General: Alert, Oriented X3, Cooperative, No acute distress HEENT: Atraumatic Lungs: Other (bibasilar crackles) Heart: Regular rate, Normal S1, Normal S2, Other (no gallops, clicks or rubs) Abdomen: Normal bowel sounds, Soft Extremities: No edema, Normal pulses Neuro: Normal speech Psych/Mental Status: Mental status NL VITALS Vital Signs Date Time Temp Pulse Resp B/P (MAP) Pulse Ox O2 Delivery O2 Flow Rate FiO2 07/09/17 08:04 Nasal Cannula 5.0 07/09/17 07:45 88 07/09/17 07:35 97.7 22 133/77 (95) 92 Labs Laboratory Tests Test 07/08/17 05:46 07/09/17 06:11 White Blood Count 12.7 x10^3/uL (4.0-11.0) 9.8 x10^3/uL (4.0-11.0) Red Blood Count 5.37 x10^6/uL (3.50-5.40) 5.50 x10^6/uL (3.50-5.40) Hemoglobin 15.4 g/dL (12.0-15.5) 15.9 g/dL (12.0-15.5) Hematocrit 47.3 % (36.0-47.0) 48.3 % (36.0-47.0) Mean Corpuscular Volume 88 fL (79-100) 88 fL (79-100) Mean Corpuscular Hemoglobin 29 pg (25-35) 29 pg (25-35) Mean Corpuscular Hemoglobin Concent 33 g/dL (31-37) 33 g/dL (31-37) Red Cell Distribution Width 17.3 % (11.5-14.5) 17.2 % (11.5-14.5) Platelet Count 286 x10^3/uL (140-400) 272 x10^3/uL (140-400) Neutrophils (%) (Auto) 85 % (31-73) Lymphocytes (%) (Auto) 10 % (24-48) Monocytes (%) (Auto) 5 % (0-9) Eosinophils (%) (Auto) 0 % (0-3) Basophils (%) (Auto) 0 % (0-3) Neutrophils # (Auto) 10.7 x10^3uL (1.8-7.7) Lymphocytes # (Auto) 1.3 x10^3/uL (1.0-4.8) Monocytes # (Auto) 0.6 x10^3/uL (0.0-1.1) Eosinophils # (Auto) 0.0 x10^3/uL (0.0-0.7) Basophils # (Auto) 0.0 x10^3/uL (0.0-0.2) Sodium Level 143 mmol/L (136-145) 141 mmol/L (136-145) Potassium Level 3.8 mmol/L (3.5-5.1) 3.7 mmol/L (3.5-5.1) Chloride Level 103 mmol/L (98-107) 102 mmol/L (98-107) Carbon Dioxide Level 31 mmol/L (21-32) 30 mmol/L (21-32) Anion Gap 9 (6-14) 9 (6-14) Blood Urea Nitrogen 30 mg/dL (7-20) 38 mg/dL (7-20) Creatinine 1.3 mg/dL (0.6-1.0) 1.2 mg/dL (0.6-1.0) Estimated GFR (Cockcroft-Gault) 41.8 45.8 BUN/Creatinine Ratio 23 (6-20) 32 (6-20) Glucose Level 143 mg/dL (70-99) 149 mg/dL (70-99) Calcium Level 8.5 mg/dL (8.5-10.1) 8.4 mg/dL (8.5-10.1) Magnesium Level 2.0 mg/dL (1.8-2.4) 2.0 mg/dL (1.8-2.4) Total Bilirubin 0.9 mg/dL (0.2-1.0) 0.9 mg/dL (0.2-1.0) Aspartate Amino Transf (AST/SGOT) 38 U/L (15-37) 39 U/L (15-37) Alanine Aminotransferase (ALT/SGPT) 31 U/L (14-59) 44 U/L (14-59) Alkaline Phosphatase 92 U/L (46-116) 101 U/L (46-116) Total Protein 7.6 g/dL (6.4-8.2) 7.5 g/dL (6.4-8.2) Albumin 2.9 g/dL (3.4-5.0) 2.9 g/dL (3.4-5.0) Albumin/Globulin Ratio 0.6 (1.0-1.7) 0.6 (1.0-1.7) Images CXR - Impression: 1. Mild interval improvement in bilateral atelectasis versus airspace disease. 2. Interstitial thickening, could represent interstitial edema or fibrotic change. Assessment/Plan 1. Paroxysmal atrial fibrillation - now in sinus rhythm. Continue metoprolol , start aspirin. [id number] = 2, would indicate need for anticoagulation, however would be cautious in light of her SI/SA. 2. Recent slightly elevated troponin level: secondary to demand ischemia. Echo revealed normal LV function and wall motion. 2. Atypical pneumonia: Continue antibiotics per IM 3. COPD/severe PHTN: per IM 4. Hypothyroidism: per IM 5. Hypertension: controlled 6. Attempted suicide: Treated per psychiatric team Problems: PALOMA MARTEL APRN Jul 09, 2017 09:19
--- NOTE | 2017-07-09 10:28 | PDOC ---
SUBJECTIVE: She is doing a little bit better today. Have able to transition her to a nasal cannula. She is anxious to return to [facility]. She knows that they will be concerned regarding her suicide attempt. She states she does not plan to do anything like that in the future. He remains a total care patient OBJECTIVE: Problems: CURRENT PROBLEMS: 1. Bilateral interstitial pneumonia. 2. Chronic hypoxic respiratory failure, continues with hypoxia. 3. Chronic obstructive pulmonary disease. 4. Chronic kidney disease stage 2. 5. Mild protein-calorie malnutrition. 6. Suicide attempt with electrocution and plastic bag over her head. 7. Severe depression and anxiety. 8. Functional quadriplegia - The patient basically does almost nothing for herself. Vital Signs: Vital Signs Date Time Temp Pulse Resp B/P (MAP) Pulse Ox O2 Delivery O2 Flow Rate FiO2 07/09/17 08:04 Nasal Cannula 5.0 07/09/17 07:45 88 07/09/17 07:35 97.7 22 133/77 (95) 92 I & O Intake and Output 07/09/17 07:00 Intake Total 2060 ml Output Total 1450 ml Balance 610 ml Intake Oral 2060 ml Output Urine Total 1450 ml Labs: Laboratory Tests Test 07/08/17 05:46 07/09/17 06:11 White Blood Count 12.7 x10^3/uL (4.0-11.0) 9.8 x10^3/uL (4.0-11.0) Red Blood Count 5.37 x10^6/uL (3.50-5.40) 5.50 x10^6/uL (3.50-5.40) Hemoglobin 15.4 g/dL (12.0-15.5) 15.9 g/dL (12.0-15.5) Hematocrit 47.3 % (36.0-47.0) 48.3 % (36.0-47.0) Mean Corpuscular Volume 88 fL (79-100) 88 fL (79-100) Mean Corpuscular Hemoglobin 29 pg (25-35) 29 pg (25-35) Mean Corpuscular Hemoglobin Concent 33 g/dL (31-37) 33 g/dL (31-37) Red Cell Distribution Width 17.3 % (11.5-14.5) 17.2 % (11.5-14.5) Platelet Count 286 x10^3/uL (140-400) 272 x10^3/uL (140-400) Neutrophils (%) (Auto) 85 % (31-73) Lymphocytes (%) (Auto) 10 % (24-48) Monocytes (%) (Auto) 5 % (0-9) Eosinophils (%) (Auto) 0 % (0-3) Basophils (%) (Auto) 0 % (0-3) Neutrophils # (Auto) 10.7 x10^3uL (1.8-7.7) Lymphocytes # (Auto) 1.3 x10^3/uL (1.0-4.8) Monocytes # (Auto) 0.6 x10^3/uL (0.0-1.1) Eosinophils # (Auto) 0.0 x10^3/uL (0.0-0.7) Basophils # (Auto) 0.0 x10^3/uL (0.0-0.2) Sodium Level 143 mmol/L (136-145) 141 mmol/L (136-145) Potassium Level 3.8 mmol/L (3.5-5.1) 3.7 mmol/L (3.5-5.1) Chloride Level 103 mmol/L (98-107) 102 mmol/L (98-107) Carbon Dioxide Level 31 mmol/L (21-32) 30 mmol/L (21-32) Anion Gap 9 (6-14) 9 (6-14) Blood Urea Nitrogen 30 mg/dL (7-20) 38 mg/dL (7-20) Creatinine 1.3 mg/dL (0.6-1.0) 1.2 mg/dL (0.6-1.0) Estimated GFR (Cockcroft-Gault) 41.8 45.8 BUN/Creatinine Ratio 23 (6-20) 32 (6-20) Glucose Level 143 mg/dL (70-99) 149 mg/dL (70-99) Calcium Level 8.5 mg/dL (8.5-10.1) 8.4 mg/dL (8.5-10.1) Magnesium Level 2.0 mg/dL (1.8-2.4) 2.0 mg/dL (1.8-2.4) Total Bilirubin 0.9 mg/dL (0.2-1.0) 0.9 mg/dL (0.2-1.0) Aspartate Amino Transf (AST/SGOT) 38 U/L (15-37) 39 U/L (15-37) Alanine Aminotransferase (ALT/SGPT) 31 U/L (14-59) 44 U/L (14-59) Alkaline Phosphatase 92 U/L (46-116) 101 U/L (46-116) Total Protein 7.6 g/dL (6.4-8.2) 7.5 g/dL (6.4-8.2) Albumin 2.9 g/dL (3.4-5.0) 2.9 g/dL (3.4-5.0) Albumin/Globulin Ratio 0.6 (1.0-1.7) 0.6 (1.0-1.7) Physical Exam: Color pale, throat clear, neck supple, Lungs are clear to auscultation Cardiovascular regular rhythm and rate Abdomen was soft bowel sounds positive nontender Extremities with chronic mild lymphedema ASSESSMENT: CURRENT PROBLEMS: 1. Bilateral interstitial pneumonia. 2. Chronic hypoxic respiratory failure, continues with hypoxia. 3. Chronic obstructive pulmonary disease. 4. Chronic kidney disease stage 2. 5. Mild protein-calorie malnutrition. 6. Suicide attempt with electrocution and plastic bag over her head. 7. Severe depression and anxiety. 8. Functional quadriplegia - The patient basically does almost nothing for herself. 9. interstitial lung disease-chronic PLAN: will be transferred back to [facility]. she will be chronically hypoxic due to her interstitial lung disease. the steroids have seemed to help. she has been transitioned to a nasal cannula. SARAH KING DO Jul 09, 2017 10:28
[2017-07-09 11:11] VITALS: BP 146/75
--- NOTE | 2017-07-09 11:25 | PDOC ---
Exam Note: Saeid Note: Please also refer to the separate dictated note~for this date of service dictated separately.~Patient seen individually. Discussed the patient with Nursing staff reviewed the chart.~Reviewed interim history and current functioning. Reviewed vital signs,~Labs/ Radiology~and current medications noted below. Continue current treatment with the changes noted in the dictated addendum note Assessment: Vital Signs: Vital Signs Date Time Temp Pulse Resp B/P (MAP) Pulse Ox O2 Delivery O2 Flow Rate FiO2 07/09/17 11:16 88 Nasal Cannula 4.0 07/09/17 11:11 64 28 146/75 (98) 07/09/17 07:35 97.7 I&O Intake and Output 07/09/17 06:59 Intake Total 2160 ml Output Total 1450 ml Balance 710 ml Intake Oral 2060 ml IV Total 100 ml Output Urine Total 1450 ml Labs: Laboratory Tests Test 07/09/17 06:11 White Blood Count 9.8 x10^3/uL (4.0-11.0) Red Blood Count 5.50 x10^6/uL (3.50-5.40) H Hemoglobin 15.9 g/dL (12.0-15.5) H Hematocrit 48.3 % (36.0-47.0) H Mean Corpuscular Volume 88 fL (79-100) Mean Corpuscular Hemoglobin 29 pg (25-35) Mean Corpuscular Hemoglobin Concent 33 g/dL (31-37) Red Cell Distribution Width 17.2 % (11.5-14.5) H Platelet Count 272 x10^3/uL (140-400) Sodium Level 141 mmol/L (136-145) Potassium Level 3.7 mmol/L (3.5-5.1) Chloride Level 102 mmol/L (98-107) Carbon Dioxide Level 30 mmol/L (21-32) Anion Gap 9 (6-14) Blood Urea Nitrogen 38 mg/dL (7-20) H Creatinine 1.2 mg/dL (0.6-1.0) H Estimated GFR (Cockcroft-Gault) 45.8 BUN/Creatinine Ratio 32 (6-20) H Glucose Level 149 mg/dL (70-99) H Calcium Level 8.4 mg/dL (8.5-10.1) L Magnesium Level 2.0 mg/dL (1.8-2.4) Total Bilirubin 0.9 mg/dL (0.2-1.0) Aspartate Amino Transferase (AST) 39 U/L (15-37) H Alanine Aminotransferase (ALT) 44 U/L (14-59) Alkaline Phosphatase 101 U/L (46-116) Total Protein 7.5 g/dL (6.4-8.2) Albumin 2.9 g/dL (3.4-5.0) L Albumin/Globulin Ratio 0.6 (1.0-1.7) L Current Medications: Meds: Current Medications Piperacillin Sod/ Tazobactam Sod 3.375 gm/Sodium Chloride 50 ml @ 100 mls/hr Q8HRS IV ; Start 07/05/17 at 23:00; Status UNV Levofloxacin/ Dextrose 100 ml @ 100 mls/hr Q24H IV Last administered on at 05:59; Start 07/07/17 at 06:00; Stop 07/08/17 at 08:34; Status DC Methylprednisolone Sodium Succinate (SOLU-Medrol 40MG VIAL) 40 mg Q8HRS IV Last administered on 07/08/17at 06:01; Start 07/05/17 at 23:00; Stop 07/08/17 at 08:34; Status DC Albuterol/ Ipratropium (Duoneb) 3 ml RTQID NEB Last administered on 07/09/17at 11:15; Start 07/06/17 at 08:00 Albuterol Sulfate (Ventolin) 2.5 mg PRN Q2HR PRN NEB SHORTNESS OF BREATH; Start 07/05/17 at 22:30 Montelukast Sodium (Singulair) 10 mg QHS PO Last administered on 07/08/17at 21: 01; Start 07/05/17 at 23:00 Budesonide (Pulmicort) 0.5 mg RTBID NEB Last administered on 07/08/17at 20:43; Start 07/06/17 at 08:00 Piperacillin Sod/ Tazobactam Sod (Zosyn) 3.375 gm Q8HRS IVP Last administered on 07/08/17at 05:59; Start 07/05/17 at 23:00; Stop 07/08/17 at 08:34; Status DC Levofloxacin/ Dextrose 50 ml @ 50 mls/hr Q1H IV Last administered on 07/06/17at 05:45; Start 07/06/17 at 06:00; Stop 07/06/17 at 07:08; Status DC Acetaminophen (Tylenol) 650 mg PRN Q4HRS PRN PO MILD PAIN; Start 07/06/17 at 01: 15 Bupropion HCl (Wellbutrin Xl) 150 mg DAILY PO Last administered on 07/09/17at 07 :45; Start 07/06/17 at 09:00 Buspirone HCl (Buspar) 10 mg TID PO Last administered on 07/09/17 07:45; Start 07/06/17 at 09:00 Clonazepam (KlonoPIN) 0.5 mg BID PO Last administered on 07/09/17at 07:44; Start 07/06/17 at 09:00 Clopidogrel Bisulfate (Plavix) 75 mg DAILYBFRSUP PO Last administered on at 16:04; Start 07/06/17 at 17:00 Ferrous Sulfate (Feosol) 325 mg DAILY PO Last administered on 07/09/17at 07:45; Start 07/06/17 at 09:00 Furosemide (Lasix) 40 mg DAILY PO Last administered on 07/09/17at 07:45; Start 07/06/17 at 09:00 Lactobacillus Rhamnosus (Culturelle) 1 cap BID PO Last administered on at 07:44; Start 07/06/17 at 09:00 Levothyroxine Sodium (Synthroid) 137 mcg DAILY07 PO Last administered on at 05:41; Start 07/06/17 at 07:00 Loperamide HCl (Imodium) 2 mg PRN QID PRN PO DIARRHEA; Start 07/06/17 at 01:15 Magnesium Hydroxide (Milk Of Magnesia) 400 mg PRN DAILY PRN PO CONSTIPATION; Start 07/06/17 at 01:15 Memantine (Namenda) 5 mg DAILY PO Last administered on 07/09/17at 07:45; Start 07/06/17 at 09:00 Metoprolol Tartrate (Lopressor) 25 mg BID PO Last administered on 07/09/17at 07: 45; Start 07/06/17 at 09:00 Mirtazapine (Remeron) 15 mg QHS PO Last administered on 07/08/17at 21:01; Start 07/06/17 at 21:00 Montelukast Sodium (Singulair) 10 mg HS PO ; Start 07/06/17 at 21:00; Stop at 21:00; Status DC Sodium Chloride ([place]and[place] Saline Nasal) 1 brenda PRN QID PRN TP NASAL CONGESTION; Start 07/06/17 at 01:15 Multi-Ingredient Ointment (Analgesic [place]) 1 brenda PRN QID PRN TP MUSCLE PAIN; Start 07/06/17 at 02:15 Clonazepam (KlonoPIN) 0.25 mg DAILYWLUN PO Last administered on 07/08/17at 13:06 ; Start 07/06/17 at 12:00 Enoxaparin Sodium (Lovenox) 30 mg Q24H SQ ; Start 07/06/17 at 08:30; Stop at 08:40; Status DC Enoxaparin Sodium (Lovenox) 40 mg Q24H SQ Last administered on 07/09/17at 07:44 ; Start 07/06/17 at 08:30 Vancomycin HCl 1.75 gm/Sodium Chloride 500 ml @ 250 mls/hr 1X ONCE IV Last administered on 07/06/17at 08:48; Start 07/06/17 at 09:00; Stop 07/06/17 at 10:59; Status DC Vancomycin HCl (Vanco Per Pharmacy) 1 each PRN DAILY PRN MC SEE COMMENTS Last administered on 07/06/17at 16:48; Start 07/06/17 at 08:45; Stop 07/08/17 at 10:48; Status DC Vancomycin HCl 1 gm/Sodium Chloride 250 ml @ 250 mls/hr Q24H IV Last administered on 07/07/17at 07:58; Start 07/07/17 at 09:00; Stop 07/08/17 at 08:34; Status DC Vancomycin HCl 1 each 1X ONCE MC Last administered on 07/08/17at 08:59; Start 07/08/17 at 08:30; Stop 07/08/17 at 08:31; Status DC Senna/Docusate Sodium (Senna Plus) 2 tab 1X ONCE PO Last administered on at 21:25; Start 07/06/17 at 21:00; Stop 07/06/17 at 21:01; Status DC Docusate Sodium (Colace) 200 mg DAILY PO Last administered on 07/09/17at 07:44; Start 07/07/17 at 09:30 Olanzapine (ZyPREXA ZYDIS) 2.5 mg PRN Q6HRS PRN PO ANXIETY / AGITATION Last administered on 07/07/17at 15:22; Start 07/07/17 at 14:45 Olanzapine (ZyPREXA) 2.5 mg PRN Q2HR PRN PO DELIRIUM Last administered on at 21:01; Start 07/07/17 at 18:45 Methylprednisolone Sodium Succinate (SOLU-Medrol 40MG VIAL) 20 mg Q8HRS IV Last administered on 07/09/17at 05:42; Start 07/08/17 at 14:00; Stop 07/09/17 at 10:20; Status DC Doxycycline Hyclate (Vibra-Tab) 100 mg BID PO Last administered on 07/09/17at 07 :45; Start 07/08/17 at 09:00 Aspirin (Children'S Aspirin) 162 mg DAILYWBKFT PO ; Start 07/09/17 at 09:30 Methylprednisolone Sodium Succinate (SOLU-Medrol 40MG VIAL) 20 mg BID66 IV ; Start 07/09/17 at 18:00 Active Scripts Active Reported Solu-Medrol 40 Mg Vial (Methylprednisolone Sod Succ/Pf) 40 Mg/1 Ml Vial 40 Mg IJ Q8HRS Levofloxacin-D5w 500 Mg/100 Ml (Levofloxacin/D5w) 500 Mg/100 Ml Piggyback 500 Mg IV DAILY Clonazepam 0.25 Mg Tab.rapdis 0.25 Mg PO DAILYWLUN Bupropion Xl (Bupropion Hcl) 150 Mg Tab.er.24h 150 Mg PO DAILY Piperacil-Tazobact 3.375 Gm Vl (Piperacillin Sodium/Tazobactam) 3.375 Gm Vial 3.375 Gm IV Q8HRS Montelukast Sodium Tablet (Montelukast Sodium) 10 Mg Tablet 10 Mg PO HS Bengay Greaseless Cream (Methyl Salicylate/Menthol) 57 Gm Cream..g. 57 Gm TP PRN QID PRN Namenda (Memantine Hcl) 10 Mg Tablet 5 Mg PO DAILY Advanced Antacid Liquid (Mag Hydrox/Al Hydrox/Simeth) 355 Ml Oral.susp 355 Ml PO PRN BFRMEALHC PRN Duoneb 0.5-3(2.5) Mg/3 Ml (Albuterol/Ipratropium) 3 Ml Ampul.neb 3 Ml NEB QID Pulmicort (Budesonide) 0.5 Mg/2 Ml Ampul.neb 1 Vial NEB BID Culturelle (Lactobacillus Rhamnosus Gg) 1 Each Cap.sprink 1 Cap PO BID Acetaminophen 500 Mg Tablet 650 Mg PO TID Levothyroxine Sodium 137 Mcg Tablet 137 Mcg PO DAILY07 Metoprolol Tartrate 25 Mg Tablet 25 Mg PO BID Clonazepam 0.5 Mg Tablet 0.5 Mg PO BID Buspirone Hcl 10 Mg Tablet 10 Mg PO TID Furosemide 40 Mg Tablet 40 Mg PO DAILY Remeron (Mirtazapine) 15 Mg Tablet 15 Mg PO QHS Imodium A-D (Loperamide HCl) 2 Mg Capsule 2 Mg PO QID PRN Melatonin 3 Mg Tablet 6 Mg PO HS Klonopin (Clonazepam) 0.5 Mg Tablet 0.5 Mg PO PRN BID PRN [place] Saline Nasal Gel (Sodium Chloride/Aloe Vera) 14.1 Gm Gel..gram. 1 Brenda TP QID PRN Tylenol (Acetaminophen) 325 Mg Tablet 650 Mg PO Q4HRS PRN Milk Of Magnesia (Magnesium Hydroxide) 400 Mg/5 Ml Oral.susp 400 Mg PO DAILY PRN Clopidogrel (Clopidogrel Bisulfate) 75 Mg Tablet 75 Mg PO DAILYBFRSUP Albuterol Sulfate Conc Neb Soln (Albuterol Sulfate) 2.5 Mg/0.5 Ml Vial.neb 1 Vial NEB Q4HRS PRN Ferrous Sulfate 325 Mg Tablet 325 Mg PO DAILY I have reviewed the current psychotropics carefully including drug interactions. Risk benefit ratio favors no change other than as noted in my dictated progress note. Diagnosis: Problems: (1) Dementia in Alzheimer's disease with delusions (2) Dementia in Alzheimer's disease with depression (3) Dementia, vascular, with delusions (4) Dementia, vascular, with depression (5) Major depressive disorder, recurrent episode (6) Anxiety disorder CARY ALEX MD Jul 09, 2017 11:25
[2017-07-09] MEDS: ASPIRIN 81 MG TAB.CHEW PO SCH (12:20)
[2017-07-09 14:07] VITALS: BP 136/63
[2017-07-09] MEDS: CLOPIDOGREL BISULFATE 75 MG TABLET PO SCH (17:55)
--- NOTE | 2017-07-09 18:40 | NUR ---
PT unable to go back to [facility] today r/t weather and hospice contract not complete yet. PT showered today. Ismael GREGORIO
[2017-07-09 19:21] VITALS: BP 131/61
[2017-07-09] MEDS: MIRTAZAPINE 15 MG TABLET PO SCH (21:22)
[2017-07-09] MEDS: MONTELUKAST 10 MG TABLET. PO SCH (21:22)
[2017-07-09] MEDS: BUDESONIDE 0.5 MG/2 ML NEBU NEB SCH (21:25)
[2017-07-09 23:14] VITALS: BP 119/71
[2017-07-10 05:15] VITALS: BP 116/60
[2017-07-10] MEDS: IPRATRPIUM/ALBUTEROL 0.5/2.5MG 3 ML NEBU. NEB SCH ×3 (06:09→16:00)
[2017-07-10] MEDS: LEVOTHYROXINE 137 MCG TABLET PO SCH (06:24)
[2017-07-10] MEDS: methylPREDNISolone SOD SUCC PF 40 MG/ML VIAL. IV SCH ×2 (06:24→07:39)
[2017-07-10 06:46] LABS: BASO % 0 % (0-3); EOS % 0 % (0-3); HEMATOCRIT 47.9 % (36.0-47.0); HEMOGLOBIN 15.7 g/dL (12.0-15.5); LYMPH # 1.7 x10^3/uL (1.0-4.8); LYMPH % 17 % (24-48); MEAN CORPUSCULAR HEMOGLOBIN 29 pg (25-35); MEAN CORPUSCULAR HGB CONC 33 g/dL (31-37); MEAN CORPUSCULAR VOLUME 88 fL (79-100); MONO # 1.3 x10^3/uL (0.0-1.1); MONO % 13 % (0-9); NEUT # 6.9 x10^3uL (1.8-7.7); NEUT % 70 % (31-73); PLATELET COUNT 307 x10^3/uL (140-400); RED BLOOD COUNT 5.47 x10^6/uL (3.50-5.40); RED CELL DISTRIBUTION WIDTH 16.5 % (11.5-14.5); WHITE BLOOD COUNT 9.9 x10^3/uL (4.0-11.0)
[2017-07-10 06:56] LABS: ALBUMIN 2.8 g/dL (3.4-5.0); ALBUMIN/GLOBULIN RATIO 0.7 (1.0-1.7); CALCIUM 8.2 mg/dL (8.5-10.1); CREATININE 1.1 mg/dL (0.6-1.0); GFR 50.7; POTASSIUM 3.4 mmol/L (3.5-5.1); TOTAL BILIRUBIN 0.9 mg/dL (0.2-1.0); TOTAL PROTEIN 7.1 g/dL (6.4-8.2)
--- NOTE | 2017-07-10 07:32 | NUR ---
PT up to chair today, Pt pleasant and compliant at this time. NO manipulative behavior or crying at this point. Will continue to monitor. Leslie GREGORIO
[2017-07-10] MEDS: FERROUS SULFATE 325 MG TABLET. PO SCH (07:40)
[2017-07-10] MEDS: DOXYCYCLINE HYCLATE 100 MG TABLET PO SCH (07:40)
[2017-07-10] MEDS: MIRTAZAPINE 15 MG TABLET PO SCH (07:40)
[2017-07-10] MEDS: ASPIRIN 81 MG TAB.CHEW PO SCH (07:40)
[2017-07-10] MEDS: LACTOBACILLUS RHAMNOSUS GG 1 CAPSULE. PO SCH (07:40)
[2017-07-10] MEDS: ENOXAPARIN 40 MG/0.4 ML DISP.SYRIN. SQ SCH (07:40)
[2017-07-10] MEDS: clonazePAM 0.5 MG TABLET PO SCH ×2 (07:40→12:00)
[2017-07-10] MEDS: METOPROLOL TART IMMED RELEASE 25 MG TABLET PO SCH (07:41)
[2017-07-10] MEDS: DOCUSATE SODIUM 100 MG CAPSULE PO SCH (07:41)
[2017-07-10] MEDS: busPIRone 10 MG TABLET. PO SCH ×2 (07:41→14:41)
[2017-07-10] MEDS: FUROSEMIDE 40 MG TABLET PO SCH (07:41)
[2017-07-10] MEDS: buPROPion XL 150 MG TAB.ER.24H PO SCH (07:43)
[2017-07-10] MEDS: MEMANTINE 5 MG TABLET. PO SCH (07:46)
[2017-07-10] MEDS: BUDESONIDE 0.5 MG/2 ML NEBU NEB SCH (09:26)
[2017-07-10 09:46] VITALS: BP 151/85
--- NOTE | 2017-07-10 12:32 | PDOC ---
PROVIDER NOTE PROVIDER NOTE PROVIDER NOTE TO WHOM IT MAY CONCERN: I HAVE BEEN CARING FOR RAFY CASTILLO SINCE SHE HAS BEEN ADMITTED. AT THIS TIME SHE IS NOT A THREAT FOR SUICIDE OR ATTEMPTED SUICIDE. THIS HAS BEEN FACT FOR SEVERAL DAYS NOW. SHE ALSO SUFFERS FROM INTERSTITIAL LUNG DISEASE. THIS IS NOT A NEW DIAGNOSIS. SHE WILL ALWAYS REQUIRE OXYGEN. SHE IS MAINTAINING A SATURATION OF 95% ON ON 5 LITERS OF OXYGEN BY NASAL CANNULA. IF YOU HAVE ANY QUESTIONS PLEASE DON'T HESITATE TO CALL ME. SARAH KING DO HOSPITALIST, [facility] [phone] SARAH KING DO Jul 10, 2017 12:32
[2017-07-10] MEDS: OLANZapine 2.5 MG TABLET PO PRN (14:41)
--- NOTE | 2017-07-10 15:08 | NUR ---
PT dc back to [facility]. Report given and EMS called at [phone]. They have 911 and will pick her up when they they have a truck available. Report given to koko verbalize understanding of transfer back orders and medications. Leslie GREGORIO
--- NOTE | 2017-07-10 15:30 | PDOC3 ---
Discharge Summary Visit Information Date of Admission: Jul 05, 2017 Date of Discharge: Jul 10, 2017 Final Diagnosis PROBLEMS: 1. Bilateral interstitial pneumonia. 2. Chronic hypoxic respiratory failure, continues with hypoxia. 3. Chronic obstructive pulmonary disease. 4. Chronic kidney disease stage 2. 5. Mild protein-calorie malnutrition. 6. Suicide attempt with electrocution and plastic bag over her head. 7. Severe depression and anxiety. 8. Functional quadriplegia - 9. Interstitial lung [id number] 10. moderate protein calorie malnutrition Problems: Brief Hospital Course Allergies Allergies Coded Allergies Type Severity Reaction Last Updated Verified azithromycin Allergy Intermediate 07/07/17 Yes butorphanol Allergy Intermediate 07/07/17 Yes dexlansoprazole Allergy Intermediate 07/07/17 Yes meperidine Allergy Intermediate 07/07/17 Yes terfenadine Allergy Intermediate 07/07/17 Yes I S O L A T I O N *CONTACT* Allergy Unknown 07/06/17 Yes Vital Signs Vital Signs Date Time Temp Pulse Resp B/P (MAP) Pulse Ox O2 Delivery O2 Flow Rate FiO2 07/10/17 09:46 97.6 63 24 151/85 (107) 95 Nasal Cannula 5.0 Lab Results Laboratory Tests Test 07/09/17 06:11 07/10/17 05:40 White Blood Count 9.8 x10^3/uL (4.0-11.0) 9.9 x10^3/uL (4.0-11.0) Red Blood Count 5.50 x10^6/uL (3.50-5.40) 5.47 x10^6/uL (3.50-5.40) Hemoglobin 15.9 g/dL (12.0-15.5) 15.7 g/dL (12.0-15.5) Hematocrit 48.3 % (36.0-47.0) 47.9 % (36.0-47.0) Mean Corpuscular Volume 88 fL (79-100) 88 fL (79-100) Mean Corpuscular Hemoglobin 29 pg (25-35) 29 pg (25-35) Mean Corpuscular Hemoglobin Concent 33 g/dL (31-37) 33 g/dL (31-37) Red Cell Distribution Width 17.2 % (11.5-14.5) 16.5 % (11.5-14.5) Platelet Count 272 x10^3/uL (140-400) 307 x10^3/uL (140-400) Sodium Level 141 mmol/L (136-145) 140 mmol/L (136-145) Potassium Level 3.7 mmol/L (3.5-5.1) 3.4 mmol/L (3.5-5.1) Chloride Level 102 mmol/L (98-107) 102 mmol/L (98-107) Carbon Dioxide Level 30 mmol/L (21-32) 32 mmol/L (21-32) Anion Gap 9 (6-14) 6 (6-14) Blood Urea Nitrogen 38 mg/dL (7-20) 40 mg/dL (7-20) Creatinine 1.2 mg/dL (0.6-1.0) 1.1 mg/dL (0.6-1.0) Estimated GFR (Cockcroft-Gault) 45.8 50.7 BUN/Creatinine Ratio 32 (6-20) 36 (6-20) Glucose Level 149 mg/dL (70-99) 145 mg/dL (70-99) Calcium Level 8.4 mg/dL (8.5-10.1) 8.2 mg/dL (8.5-10.1) Magnesium Level 2.0 mg/dL (1.8-2.4) 2.0 mg/dL (1.8-2.4) Total Bilirubin 0.9 mg/dL (0.2-1.0) 0.9 mg/dL (0.2-1.0) Aspartate Amino Transf (AST/SGOT) 39 U/L (15-37) 38 U/L (15-37) Alanine Aminotransferase (ALT/SGPT) 44 U/L (14-59) 51 U/L (14-59) Alkaline Phosphatase 101 U/L (46-116) 98 U/L (46-116) Total Protein 7.5 g/dL (6.4-8.2) 7.1 g/dL (6.4-8.2) Albumin 2.9 g/dL (3.4-5.0) 2.8 g/dL (3.4-5.0) Albumin/Globulin Ratio 0.6 (1.0-1.7) 0.7 (1.0-1.7) Neutrophils (%) (Auto) 70 % (31-73) Lymphocytes (%) (Auto) 17 % (24-48) Monocytes (%) (Auto) 13 % (0-9) Eosinophils (%) (Auto) 0 % (0-3) Basophils (%) (Auto) 0 % (0-3) Neutrophils # (Auto) 6.9 x10^3uL (1.8-7.7) Lymphocytes # (Auto) 1.7 x10^3/uL (1.0-4.8) Monocytes # (Auto) 1.3 x10^3/uL (0.0-1.1) Eosinophils # (Auto) 0.0 x10^3/uL (0.0-0.7) Basophils # (Auto) 0.0 x10^3/uL (0.0-0.2) Brief Hospital Course Ms. Yanez is a 61 old [sex] who presented with [ ] HISTORY OF PRESENT ILLNESS: This is a 61-year-old female who was initially admitted to [address] [place] [address] on 07/03/2017 for hypoxemia and exacerbation of COPD. She then went [facility] was [facility] to go after a suicide attempt from [facility] in [place], [place]. A rapid response was called yesterday evening because of hypoxemia and chest CT shows no evidence of pulmonary embolism, but bilateral interstitial infiltrates suggestive of a typical pneumonia.She was treated with IV antibiotics. She continues to have hypoxia which is not new. She has interstitial lung disease and will always require oxygen. She is very anxious to go back to [facility] And is aware of her suicide attempts and is very adamant that this will not occur again. She requires total care and was recommended that she be discharged on hospice. Discharge Information Condition at Discharge: Improved, Stable Disposition/Orders: D/C to Another Facility Dischare Medications Current Medications Piperacillin Sod/ Tazobactam Sod 3.375 gm/Sodium Chloride 50 ml @ 100 mls/hr Q8HRS IV ; Start 07/05/17 at 23:00; Status UNV Levofloxacin/ Dextrose 100 ml @ 100 mls/hr Q24H IV Last administered on at 05:59; Start 07/07/17 at 06:00; Stop 07/08/17 at 08:34; Status DC Methylprednisolone Sodium Succinate (SOLU-Medrol 40MG VIAL) 40 mg Q8HRS IV Last administered on 07/08/17at 06:01; Start 07/05/17 at 23:00; Stop 07/08/17 at 08:34; Status DC Albuterol/ Ipratropium (Duoneb) 3 ml RTQID NEB Last administered on 07/10/17at 09:27; Start 07/06/17 at 08:00 Albuterol Sulfate (Ventolin) 2.5 mg PRN Q2HR PRN NEB SHORTNESS OF BREATH; Start 07/05/17 at 22:30 Montelukast Sodium (Singulair) 10 mg QHS PO Last administered on 07/09/17at 21: 22; Start 07/05/17 at 23:00 Budesonide (Pulmicort) 0.5 mg RTBID NEB Last administered on 07/10/17at 09:26; Start 07/06/17 at 08:00 Piperacillin Sod/ Tazobactam Sod (Zosyn) 3.375 gm Q8HRS IVP Last administered on 07/08/17at 05:59; Start 07/05/17 at 23:00; Stop 07/08/17 at 08:34; Status DC Levofloxacin/ Dextrose 50 ml @ 50 mls/hr Q1H IV Last administered on 07/06/17at 05:45; Start 07/06/17 at 06:00; Stop 07/06/17 at 07:08; Status DC Acetaminophen (Tylenol) 650 mg PRN Q4HRS PRN PO MILD PAIN; Start 07/06/17 at 01: 15 Bupropion HCl (Wellbutrin Xl) 150 mg DAILY PO Last administered on 07/10/17at 07 :43; Start 07/06/17 at 09:00 Buspirone HCl (Buspar) 10 mg TID PO Last administered on 07/10/17at 14:41; Start 07/06/17 at 09:00 Clonazepam (KlonoPIN) 0.5 mg BID PO Last administered on 07/10/17at 07:40; Start 07/06/17 at 09:00 Clopidogrel Bisulfate (Plavix) 75 mg DAILYBFRSUP PO Last administered on at 17:55; Start 07/06/17 at 17:00 Ferrous Sulfate (Feosol) 325 mg DAILY PO Last administered on 07/10/17at 07:40; Start 07/06/17 at 09:00 Furosemide (Lasix) 40 mg DAILY PO Last administered on 07/10/17at 07:41; Start 07/06/17 at 09:00 Lactobacillus Rhamnosus (Culturelle) 1 cap BID PO Last administered on at 07:40; Start 07/06/17 at 09:00 Levothyroxine Sodium (Synthroid) 137 mcg DAILY07 PO Last administered on at 06:24; Start 07/06/17 at 07:00 Loperamide HCl (Imodium) 2 mg PRN QID PRN PO DIARRHEA; Start 07/06/17 at 01:15 Magnesium Hydroxide (Milk Of Magnesia) 400 mg PRN DAILY PRN PO CONSTIPATION; Start 07/06/17 at 01:15 Memantine (Namenda) 5 mg DAILY PO Last administered on 07/10/17at 07:46; Start 07/06/17 at 09:00 Metoprolol Tartrate (Lopressor) 25 mg BID PO Last administered on 07/10/17at 07: 41; Start 07/06/17 at 09:00 Mirtazapine (Remeron) 15 mg QHS PO Last administered on 07/10/17 07:40; Start 07/06/17 at 21:00 Montelukast Sodium (Singulair) 10 mg HS PO ; Start 07/06/17 at 21:00; Stop at 21:00; Status DC Sodium Chloride (Benson Saline Nasal) 1 brenda PRN QID PRN TP NASAL CONGESTION; Start 07/06/17 at 01:15 Multi-Ingredient Ointment (Analgesic [place]) 1 brenda PRN QID PRN TP MUSCLE PAIN; Start 07/06/17 at 02:15 Clonazepam (KlonoPIN) 0.25 mg DAILYWLUN PO Last administered on 07/10/17at 12:00 ; Start 07/06/17 at 12:00 Enoxaparin Sodium (Lovenox) 30 mg Q24H SQ ; Start 07/06/17 at 08:30; Stop at 08:40; Status DC Enoxaparin Sodium (Lovenox) 40 mg Q24H SQ Last administered on 07/10/17at 07:40 ; Start 07/06/17 at 08:30 Vancomycin HCl 1.75 gm/Sodium Chloride 500 ml @ 250 mls/hr 1X ONCE IV Last administered on 07/06/17at 08:48; Start 07/06/17 at 09:00; Stop 07/06/17 at 10:59; Status DC Vancomycin HCl (Vanco Per Pharmacy) 1 each PRN DAILY PRN MC SEE COMMENTS Last administered on 07/06/17at 16:48; Start 07/06/17 at 08:45; Stop 07/08/17 at 10:48; Status DC Vancomycin HCl 1 gm/Sodium Chloride 250 ml @ 250 mls/hr Q24H IV Last administered on 07/07/17at 07:58; Start 07/07/17 at 09:00; Stop 07/08/17 at 08:34; Status DC Vancomycin HCl 1 each 1X ONCE MC Last administered on 07/08/17at 08:59; Start 07/08/17 at 08:30; Stop 07/08/17 at 08:31; Status DC Senna/Docusate Sodium (Senna Plus) 2 tab 1X ONCE PO Last administered on at 21:25; Start 07/06/17 at 21:00; Stop 07/06/17 at 21:01; Status DC Docusate Sodium (Colace) 200 mg DAILY PO Last administered on 07/10/17at 07:41; Start 07/07/17 at 09:30 Olanzapine (ZyPREXA ZYDIS) 2.5 mg PRN Q6HRS PRN PO ANXIETY / AGITATION Last administered on 07/07/17at 15:22; Start 07/07/17 at 14:45 Olanzapine (ZyPREXA) 2.5 mg PRN Q2HR PRN PO DELIRIUM Last administered on at 14:41; Start 07/07/17 at 18:45 Methylprednisolone Sodium Succinate (SOLU-Medrol 40MG VIAL) 20 mg Q8HRS IV Last administered on 07/09/17at 05:42; Start 07/08/17 at 14:00; Stop 07/09/17 at 10:20; Status DC Doxycycline Hyclate (Vibra-Tab) 100 mg BID PO Last administered on 07/10/17at 07 :40; Start 07/08/17 at 09:00 Aspirin (Children'S Aspirin) 162 mg DAILYWBKFT PO Last administered on at 07:40; Start 07/09/17 at 09:30 Methylprednisolone Sodium Succinate (SOLU-Medrol 40MG VIAL) 20 mg BID66 IV Last administered on 07/10/17at 07:39; Start 07/09/17 at 18:00 Active Scripts Active Reported Solu-Medrol 40 Mg Vial (Methylprednisolone Sod Succ/Pf) 40 Mg/1 Ml Vial 40 Mg IJ Q8HRS Levofloxacin-D5w 500 Mg/100 Ml (Levofloxacin/D5w) 500 Mg/100 Ml Piggyback 500 Mg IV DAILY Clonazepam 0.25 Mg Tab.rapdis 0.25 Mg PO DAILYWLUN Bupropion Xl (Bupropion Hcl) 150 Mg Tab.er.24h 150 Mg PO DAILY Piperacil-Tazobact 3.375 Gm Vl (Piperacillin Sodium/Tazobactam) 3.375 Gm Vial 3.375 Gm IV Q8HRS Montelukast Sodium Tablet (Montelukast Sodium) 10 Mg Tablet 10 Mg PO HS Bengay Greaseless Cream (Methyl Salicylate/Menthol) 57 Gm Cream..g. 57 Gm TP PRN QID PRN Namenda (Memantine Hcl) 10 Mg Tablet 5 Mg PO DAILY Advanced Antacid Liquid (Mag Hydrox/Al Hydrox/Simeth) 355 Ml Oral.susp 355 Ml PO PRN BFRMEALHC PRN Duoneb 0.5-3(2.5) Mg/3 Ml (Albuterol/Ipratropium) 3 Ml Ampul.neb 3 Ml NEB QID Pulmicort (Budesonide) 0.5 Mg/2 Ml Ampul.neb 1 Vial NEB BID Culturelle (Lactobacillus Rhamnosus Gg) 1 Each Cap.sprink 1 Cap PO BID Acetaminophen 500 Mg Tablet 650 Mg PO TID Levothyroxine Sodium 137 Mcg Tablet 137 Mcg PO DAILY07 Metoprolol Tartrate 25 Mg Tablet 25 Mg PO BID Clonazepam 0.5 Mg Tablet 0.5 Mg PO BID Buspirone Hcl 10 Mg Tablet 10 Mg PO TID Furosemide 40 Mg Tablet 40 Mg PO DAILY Remeron (Mirtazapine) 15 Mg Tablet 15 Mg PO QHS Imodium A-D (Loperamide HCl) 2 Mg Capsule 2 Mg PO QID PRN Melatonin 3 Mg Tablet 6 Mg PO HS Klonopin (Clonazepam) 0.5 Mg Tablet 0.5 Mg PO PRN BID PRN Benson Saline Nasal Gel (Sodium Chloride/Aloe Vera) 14.1 Gm Gel..gram. 1 Brenda TP QID PRN Tylenol (Acetaminophen) 325 Mg Tablet 650 Mg PO Q4HRS PRN Milk Of Magnesia (Magnesium Hydroxide) 400 Mg/5 Ml Oral.susp 400 Mg PO DAILY PRN Clopidogrel (Clopidogrel Bisulfate) 75 Mg Tablet 75 Mg PO DAILYBFRSUP Albuterol Sulfate Conc Neb Soln (Albuterol Sulfate) 2.5 Mg/0.5 Ml Vial.neb 1 Vial NEB Q4HRS PRN Ferrous Sulfate 325 Mg Tablet 325 Mg PO DAILY Patient Instructions Patient Instuctions DISCHARGE TO [facility]. SARAH KING DO Jul 10, 2017 15:30
--- NOTE | 2017-07-10 17:00 | NUR ---
[facility]
--- NOTE | 2017-07-10 18:11 | PDOC ---
Exam Note: Saeid Note: Please also refer to the separate dictated note~for this date of service dictated separately.~Patient seen individually. Discussed the patient with Nursing staff reviewed the chart.~Reviewed interim history and current functioning. Reviewed vital signs,~Labs/ Radiology~and current medications noted below. Continue current treatment with the changes noted in the dictated addendum note Assessment: Vital Signs: Vital Signs Date Time Temp Pulse Resp B/P (MAP) Pulse Ox O2 Delivery O2 Flow Rate FiO2 07/10/17 09:46 97.6 63 24 151/85 (107) 95 Nasal Cannula 5.0 I&O Intake and Output 07/10/17 07:00 Intake Total 1380 ml Output Total 1575 ml Balance -195 ml Intake Oral 1380 ml Output Urine Total 1575 ml # Bowel Movements 1 Labs: Laboratory Tests Test 07/10/17 05:40 White Blood Count 9.9 x10^3/uL (4.0-11.0) Red Blood Count 5.47 x10^6/uL (3.50-5.40) H Hemoglobin 15.7 g/dL (12.0-15.5) H Hematocrit 47.9 % (36.0-47.0) H Mean Corpuscular Volume 88 fL (79-100) Mean Corpuscular Hemoglobin 29 pg (25-35) Mean Corpuscular Hemoglobin Concent 33 g/dL (31-37) Red Cell Distribution Width 16.5 % (11.5-14.5) H Platelet Count 307 x10^3/uL (140-400) Neutrophils (%) (Auto) 70 % (31-73) Lymphocytes (%) (Auto) 17 % (24-48) L Monocytes (%) (Auto) 13 % (0-9) H Eosinophils (%) (Auto) 0 % (0-3) Basophils (%) (Auto) 0 % (0-3) Neutrophils # (Auto) 6.9 x10^3uL (1.8-7.7) Lymphocytes # (Auto) 1.7 x10^3/uL (1.0-4.8) Monocytes # (Auto) 1.3 x10^3/uL (0.0-1.1) H Eosinophils # (Auto) 0.0 x10^3/uL (0.0-0.7) Basophils # (Auto) 0.0 x10^3/uL (0.0-0.2) Sodium Level 140 mmol/L (136-145) Potassium Level 3.4 mmol/L (3.5-5.1) L Chloride Level 102 mmol/L (98-107) Carbon Dioxide Level 32 mmol/L (21-32) Anion Gap 6 (6-14) Blood Urea Nitrogen 40 mg/dL (7-20) H Creatinine 1.1 mg/dL (0.6-1.0) H Estimated GFR (Cockcroft-Gault) 50.7 BUN/Creatinine Ratio 36 (6-20) H Glucose Level 145 mg/dL (70-99) H Calcium Level 8.2 mg/dL (8.5-10.1) L Magnesium Level 2.0 mg/dL (1.8-2.4) Total Bilirubin 0.9 mg/dL (0.2-1.0) Aspartate Amino Transferase (AST) 38 U/L (15-37) H Alanine Aminotransferase (ALT) 51 U/L (14-59) Alkaline Phosphatase 98 U/L (46-116) Total Protein 7.1 g/dL (6.4-8.2) Albumin 2.8 g/dL (3.4-5.0) L Albumin/Globulin Ratio 0.7 (1.0-1.7) L Current Medications: Meds: Current Medications Piperacillin Sod/ Tazobactam Sod 3.375 gm/Sodium Chloride 50 ml @ 100 mls/hr Q8HRS IV ; Start 07/05/17 at 23:00; Status UNV Levofloxacin/ Dextrose 100 ml @ 100 mls/hr Q24H IV Last administered on at 05:59; Start 07/07/17 at 06:00; Stop 07/08/17 at 08:34; Status DC Methylprednisolone Sodium Succinate (SOLU-Medrol 40MG VIAL) 40 mg Q8HRS IV Last administered on 07/08/17at 06:01; Start 07/05/17 at 23:00; Stop 07/08/17 at 08:34; Status DC Albuterol/ Ipratropium (Duoneb) 3 ml RTQID NEB Last administered on 07/10/17at 09:27; Start 07/06/17 at 08:00 Albuterol Sulfate (Ventolin) 2.5 mg PRN Q2HR PRN NEB SHORTNESS OF BREATH; Start 07/05/17 at 22:30 Montelukast Sodium (Singulair) 10 mg QHS PO Last administered on 07/09/17at 21: 22; Start 07/05/17 at 23:00 Budesonide (Pulmicort) 0.5 mg RTBID NEB Last administered on 07/10/17at 09:26; Start 07/06/17 at 08:00 Piperacillin Sod/ Tazobactam Sod (Zosyn) 3.375 gm Q8HRS IVP Last administered on 07/08/17 05:59; Start 07/05/17 at 23:00; Stop 07/08/17 at 08:34; Status DC Levofloxacin/ Dextrose 50 ml @ 50 mls/hr Q1H IV Last administered on 07/06/17at 05:45; Start 07/06/17 at 06:00; Stop 07/06/17 at 07:08; Status DC Acetaminophen (Tylenol) 650 mg PRN Q4HRS PRN PO MILD PAIN; Start 07/06/17 at 01: 15 Bupropion HCl (Wellbutrin Xl) 150 mg DAILY PO Last administered on 07/10/17 07 :43; Start 07/06/17 at 09:00 Buspirone HCl (Buspar) 10 mg TID PO Last administered on 07/10/17 14:41; Start 07/06/17 at 09:00 Clonazepam (KlonoPIN) 0.5 mg BID PO Last administered on 07/10/17 07:40; Start 07/06/17 at 09:00 Clopidogrel Bisulfate (Plavix) 75 mg DAILYBFRSUP PO Last administered on 17:55; Start 07/06/17 at 17:00 Ferrous Sulfate (Feosol) 325 mg DAILY PO Last administered on 07/10/17 07:40; Start 07/06/17 at 09:00 Furosemide (Lasix) 40 mg DAILY PO Last administered on 07/10/17 07:41; Start 07/06/17 at 09:00 Lactobacillus Rhamnosus (Culturelle) 1 cap BID PO Last administered on 07:40; Start 07/06/17 at 09:00 Levothyroxine Sodium (Synthroid) 137 mcg DAILY07 PO Last administered on at 06:24; Start 07/06/17 at 07:00 Loperamide HCl (Imodium) 2 mg PRN QID PRN PO DIARRHEA; Start 07/06/17 at 01:15 Magnesium Hydroxide (Milk Of Magnesia) 400 mg PRN DAILY PRN PO CONSTIPATION; Start 07/06/17 at 01:15 Memantine (Namenda) 5 mg DAILY PO Last administered on 07/10/17at 07:46; Start 07/06/17 at 09:00 Metoprolol Tartrate (Lopressor) 25 mg BID PO Last administered on 07/10/17at 07: 41; Start 07/06/17 at 09:00 Mirtazapine (Remeron) 15 mg QHS PO Last administered on 07/10/17at 07:40; Start 07/06/17 at 21:00 Montelukast Sodium (Singulair) 10 mg HS PO ; Start 07/06/17 at 21:00; Stop at 21:00; Status DC Sodium Chloride ([place]oll[place] Saline Nasal) 1 brenda PRN QID PRN TP NASAL CONGESTION; Start 07/06/17 at 01:15 Multi-Ingredient Ointment (Analgesic [place]) 1 brenda PRN QID PRN TP MUSCLE PAIN; Start 07/06/17 at 02:15 Clonazepam (KlonoPIN) 0.25 mg DAILYWLUN PO Last administered on 07/10/17at 12:00 ; Start 07/06/17 at 12:00 Enoxaparin Sodium (Lovenox) 30 mg Q24H SQ ; Start 07/06/17 at 08:30; Stop at 08:40; Status DC Enoxaparin Sodium (Lovenox) 40 mg Q24H SQ Last administered on 07/10/17at 07:40 ; Start 07/06/17 at 08:30 Vancomycin HCl 1.75 gm/Sodium Chloride 500 ml @ 250 mls/hr 1X ONCE IV Last administered on 07/06/17at 08:48; Start 07/06/17 at 09:00; Stop 07/06/17 at 10:59; Status DC Vancomycin HCl (Vanco Per Pharmacy) 1 each PRN DAILY PRN MC SEE COMMENTS Last administered on 07/06/17at 16:48; Start 07/06/17 at 08:45; Stop 07/08/17 at 10:48; Status DC Vancomycin HCl 1 gm/Sodium Chloride 250 ml @ 250 mls/hr Q24H IV Last administered on 07/07/17at 07:58; Start 07/07/17 at 09:00; Stop 07/08/17 at 08:34; Status DC Vancomycin HCl 1 each 1X ONCE MC Last administered on 07/08/17at 08:59; Start 07/08/17 at 08:30; Stop 07/08/17 at 08:31; Status DC Senna/Docusate Sodium (Senna Plus) 2 tab 1X ONCE PO Last administered on at 21:25; Start 07/06/17 at 21:00; Stop 07/06/17 at 21:01; Status DC Docusate Sodium (Colace) 200 mg DAILY PO Last administered on 07/10/17at 07:41; Start 07/07/17 at 09:30 Olanzapine (ZyPREXA ZYDIS) 2.5 mg PRN Q6HRS PRN PO ANXIETY / AGITATION Last administered on 07/07/17at 15:22; Start 07/07/17 at 14:45 Olanzapine (ZyPREXA) 2.5 mg PRN Q2HR PRN PO DELIRIUM Last administered on at 14:41; Start 07/07/17 at 18:45 Methylprednisolone Sodium Succinate (SOLU-Medrol 40MG VIAL) 20 mg Q8HRS IV Last administered on 07/09/17at 05:42; Start 07/08/17 at 14:00; Stop 07/09/17 at 10:20; Status DC Doxycycline Hyclate (Vibra-Tab) 100 mg BID PO Last administered on 07/10/17at 07 :40; Start 07/08/17 at 09:00 Aspirin (Children'S Aspirin) 162 mg DAILYWBKFT PO Last administered on at 07:40; Start 07/09/17 at 09:30 Methylprednisolone Sodium Succinate (SOLU-Medrol 40MG VIAL) 20 mg BID66 IV Last administered on 07/10/17at 07:39; Start 07/09/17 at 18:00 Active Scripts Active Reported Solu-Medrol 40 Mg Vial (Methylprednisolone Sod Succ/Pf) 40 Mg/1 Ml Vial 40 Mg IJ Q8HRS Levofloxacin-D5w 500 Mg/100 Ml (Levofloxacin/D5w) 500 Mg/100 Ml Piggyback 500 Mg IV DAILY Clonazepam 0.25 Mg Tab.rapdis 0.25 Mg PO DAILYWLUN Bupropion Xl (Bupropion Hcl) 150 Mg Tab.er.24h 150 Mg PO DAILY Piperacil-Tazobact 3.375 Gm Vl (Piperacillin Sodium/Tazobactam) 3.375 Gm Vial 3.375 Gm IV Q8HRS Montelukast Sodium Tablet (Montelukast Sodium) 10 Mg Tablet 10 Mg PO HS [place] Greaseless Cream (Methyl Salicylate/Menthol) 57 Gm Cream..g. 57 Gm TP PRN QID PRN Namenda (Memantine Hcl) 10 Mg Tablet 5 Mg PO DAILY Advanced Antacid Liquid (Mag Hydrox/Al Hydrox/Simeth) 355 Ml Oral.susp 355 Ml PO PRN BFRMEALHC PRN Duoneb 0.5-3(2.5) Mg/3 Ml (Albuterol/Ipratropium) 3 Ml Ampul.neb 3 Ml NEB QID Pulmicort (Budesonide) 0.5 Mg/2 Ml Ampul.neb 1 Vial NEB BID Culturelle (Lactobacillus Rhamnosus Gg) 1 Each Cap.sprink 1 Cap PO BID Acetaminophen 500 Mg Tablet 650 Mg PO TID Levothyroxine Sodium 137 Mcg Tablet 137 Mcg PO DAILY07 Metoprolol Tartrate 25 Mg Tablet 25 Mg PO BID Clonazepam 0.5 Mg Tablet 0.5 Mg PO BID Buspirone Hcl 10 Mg Tablet 10 Mg PO TID Furosemide 40 Mg Tablet 40 Mg PO DAILY Remeron (Mirtazapine) 15 Mg Tablet 15 Mg PO QHS Imodium A-D (Loperamide HCl) 2 Mg Capsule 2 Mg PO QID PRN Melatonin 3 Mg Tablet 6 Mg PO HS Klonopin (Clonazepam) 0.5 Mg Tablet 0.5 Mg PO PRN BID PRN [place] Saline Nasal Gel (Sodium Chloride/Aloe Vera) 14.1 Gm Gel..gram. 1 Brenda TP QID PRN Tylenol (Acetaminophen) 325 Mg Tablet 650 Mg PO Q4HRS PRN Milk Of Magnesia (Magnesium Hydroxide) 400 Mg/5 Ml Oral.susp 400 Mg PO DAILY PRN Clopidogrel (Clopidogrel Bisulfate) 75 Mg Tablet 75 Mg PO DAILYBFRSUP Albuterol Sulfate Conc Neb Soln (Albuterol Sulfate) 2.5 Mg/0.5 Ml Vial.neb 1 Vial NEB Q4HRS PRN Ferrous Sulfate 325 Mg Tablet 325 Mg PO DAILY I have reviewed the current psychotropics carefully including drug interactions. Risk benefit ratio favors no change other than as noted in my dictated progress note. Diagnosis: Problems: (1) Dementia in Alzheimer's disease with delusions (2) Dementia in Alzheimer's disease with depression (3) Dementia, vascular, with delusions (4) Dementia, vascular, with depression (5) Major depressive disorder, recurrent episode (6) Anxiety disorder CARY ALEX MD Jul 10, 2017 18:11
--- NOTE | 2017-07-12 23:02 | PN ---
DATE: 07/08/2017 This is a late entry 07/08/2017 covers elements not covered in my initial note 07/08/2017. SUBJECTIVE: I met with the patient evening of 07/08/2017. Per nursing report, the patient has been doing better, less anxious, agitated, still remain somewhat labile in her mood at times and from a pulmonary standpoint, she is doing much better as well. REVIEW OF SYSTEMS: Impaired ambulation, weakness, shortness of breath. She is no longer on the facial mask for oxygen. MENTAL STATUS EXAMINATION: Oriented to herself and situation. Speech is coherent, has some latency, often responses monosyllabic, abstraction fair, computation impaired, language function intact. Mood and affect less depressed. LABORATORY DATA: Reviewed. IMPRESSION: Unchanged from initial note. PLAN: Continue current psychotropics, adjust further as clinically indicated. MAN Noel ALEX MD DR: ELIZABETH/trung JOB#: [id number] / [id number]
--- NOTE | 2017-07-12 23:05 | PN ---
DATE: 07/09/2017 This note covers elements not covered in my initial note of 07/09/2017. SUBJECTIVE: The patient seen individually morning of 07/09/2017. Overall, the patient has been doing better. From a pulmonary standpoint, she is improved as well. She does complain of weakness, less agitation. No PRNs used. REVIEW OF SYSTEMS: No CV, , eye system symptoms on review. MENTAL STATUS EXAMINATION: Oriented to herself and situation. Speech has some latency, coherent, somewhat labile in her mood, tearful at times. No psychotic symptoms, suicidal or homicidal ideation. Attention span short. Language function intact. IMPRESSION: Unchanged from initial note. PLAN: Continue current psychotropics as noted in my initial note. MAN Noel ALEX MD DR: ELIZABETH/trung JOB#: [id number] / [id number]
== END 2017-07-10 17:15 | disposition hospice, home (50) | DRG 196 ==
LOC: ICU 22:16
PROVIDERS: ADMIT Internal Medicine; ATTEND Internal Medicine
DX: J84.9 Interstitial pulmonary disease, unspecified (principal); R53.2 Functional quadriplegia; J96.11 Chronic respiratory failure with hypoxia; E44.0 Moderate protein-calorie malnutrition; I24.8 Other forms of acute ischemic heart disease; F22 Delusional disorders; I48.0 Paroxysmal atrial fibrillation; F33.9 Major depressive disorder, recurrent, unspecified; J44.0 Chronic obstructive pulmonary disease with (acute) lower respiratory infection; J44.1 Chronic obstructive pulmonary disease with (acute) exacerbation; G30.9 Alzheimer's disease, unspecified; F01.50 Vascular dementia, unspecified severity, without behavioral disturbance, psychotic disturbance, mood disturbance, and anxiety; E03.9 Hypothyroidism, unspecified; F02.80 Dementia in other diseases classified elsewhere, unspecified severity, without behavioral disturbance, psychotic disturbance, mood disturbance, and anxiety; F41.9 Anxiety disorder, unspecified; I12.9 Hypertensive chronic kidney disease with stage 1 through stage 4 chronic kidney disease, or unspecified chronic kidney disease; K21.9 Gastro-esophageal reflux disease without esophagitis; N18.3 Chronic kidney disease, stage 3 (moderate); Y93.89 Activity, other specified; Y92.89 Other specified places as the place of occurrence of the external cause; Y99.8 Other external cause status; T75.4XXA Electrocution, initial encounter; Z51.5 Encounter for palliative care; Z66 Do not resuscitate; Z99.81 Dependence on supplemental oxygen; Z88.1 Allergy status to other antibiotic agents; Z88.8 Allergy status to other drugs, medicaments and biological substances; Z68.30 Body mass index [BMI] 30.0-30.9, adult
CPT/HCPCS: 36415; 71045; 80053; 82803; 83605; 83735; 85007; 85025; 85027; 87040; 94640; J1650; J1956; J2543; J2920; J3370; J7040; J7050; J7620; J7626